=== PATIENT | female | born 1935 | race Caucasian/White ===

== ENCOUNTER 2020-10-01 07:51 | Outpatient (CLI) | payer MEDICARE, SELFPAY ==
--- NOTE | 2020-10-01 07:56 | US_ITS ---
WS: [id number] RIGHT UPPER QUADRANT ULTRASOUND HISTORY: ABNORMAL FINDINGS OF BLOOD CHEMISTRY COMPARISON: 03/20/2013, 03/03/2018 Liver: 16.2 cm in length. Liver is slightly enlarged with coarse echotexture and hepatic steatosis. Gallbladder: Normally distended gallbladder. There is a focal area of minimal gallbladder wall thicke liana which may be a small amount of sludge or polyp. No shadowing or stones. CBD: 0.6 cm Pancreas: Not visualized. Right kidney: 10.3 cm in length. Normal size and echogenicity. No hydronephrosis or mass. Aorta and IVC: ATHEROSCLEROSIS aorta. Normal IVC. No ascites. US/US abdomen limited [id number] IMPRESSION: 1. No cholelithiasis. 2. Focal wall thickening in the posterior gallbladder may be an area of tumefa ctive sludge or polyp. 3. Mild hepatomegaly and hepatic steatosis.
== END 2020-10-01 07:52 | disposition home or self-care (01) ==
LOC: US 07:52
PROVIDERS: PCP Family Medicine; Visit Provider Family Medicine
DX: R79.89 Other specified abnormal findings of blood chemistry (principal); R16.0 Hepatomegaly, not elsewhere classified; K76.0 Fatty (change of) liver, not elsewhere classified
CPT/HCPCS: 76705

== ENCOUNTER 2020-10-27 21:39 | Emergency (ER) | payer MEDICARE, SELFPAY ==
[2020-10-27 21:47] VITALS: BP 154/66; PULSE 106; RESP 14; TEMP 39.3; O2SAT 92; BMI 26.7
--- NOTE | 2020-10-27 21:56 | ECG_ITS ---
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 Measurements Intervals Waucoma Rate: 94 P: 162 KS: 223 QRS: 17 QRSD: 138 T: 269 QT: 368 QTc: 461 Interpretive Statements SINUS RHYTHM WITH FIRST DEGREE AV BLOCK INTRAVENTRICULAR CONDUCTION DELAY [130+ ms QRS DURATION] LEFT VENTRICULAR HYPERTROPHY AND ST-T CHANGE [VOLTAGE CRITERIA PLUS ST/T ABNORMALITY] Compared to ECG 11/08/2016 12:10:06 First degree AV block now present Intraventricular conduction delay now present Left ventricular hypertrophy now present ST (T wave) deviation now present Atrial-paced complex(es) or rhythm no longer present Left bundle-branch block no longer present Electronically Signed On 10-28-2020 21:32:18 ACCOUNTING DIRECTOR by Nayely Gardner M.D. [id number]
--- NOTE | 2020-10-27 21:56 | XRR_ITS ---
PROCEDURE INFORMATION: Exam: XR Chest, 1 View Exam date and time: 10/27/2020 10:00 PM Age: 85 years old Clinical indication: Fever; Prior surgery; Surgery type: Cabg, pacemaker TECHNIQUE: Imaging protocol: XR of the chest Views: 1 view. COMPARISON: CR Chest 2 views* [id number] 11/08/2016 12:24 PM FINDINGS: Tubes, catheters and devices: Permanent pacemaker appears intact. The patient has undergone mitral valve replacement. Lungs: Unremarkable. No consolidation. Pleural space: Unremarkable. No pleural effusion. No pneumothorax. Heart/Mediastinum: The heart is normal for the AP projection. Bones/joints: Unremarkable. XR/XR chest 1V portable [id number] IMPRESSION: No acute cardiopulmonary abnormality.
--- NOTE | 2020-10-27 22:00 | ED_ITS ---
HPI - COVID General: Chief Complaint: COVID symptoms Stated Complaint: fever/sob Time Seen by Provider: 10/27/20 21:56 Source: patient Mode of arrival: ambulatory Limitations: no limitations Triage information: Has fever, cough or shortness of breath . No known COVID + exposure last 14 days History of Present Illness: HPI Narrative: [place] any 5-year-old female states started having some shortness of breath along with a fever and body aches today. She has a fever here of 102. She states she has had no known sick contacts Please she has been is her doctor's office over the last 2 weeks. She denies any vomiting or diarrhea. She has had a slight cough. Denies any dysuria. COVID 19 common symptoms: positive fever(s), non-productive cough, dyspnea and body aches; negative headache(s), throat pain, nausea, vomiting or diarrhea COVID 19 other sytmptoms: negative chest pain COVID Results: SARS-CoV-2 Antigen (Rapid) Negative (Negative) 10/27/20 22:18 10/27/20 Review of Systems Const: Reports: fever(s), chills and body aches Eyes: Denies: blurry vision or eye discomfort ENMT: Denies: throat pain or dental pain Card: Denies: chest pain Resp: Reports: dyspnea and non-productive cough GI: Denies: abdominal pain, nausea, vomiting or diarrhea : Denies: dysuria Musc: Denies: neck pain or back pain Skin/Breast: Denies: rash Neuro: Denies: headache(s) Psych: Denies: depression Deric/Lymph: Denies: easy bruising All/Imm: Denies: urticaria PFSH ED PFSH: Medical History ASHD (arteriosclerotic heart disease) Atrial fibrillation HTN (hypertension) Sick sinus syndrome Warfarin anticoagulation Surgical History H/O tricuspid valve repair History of mitral valve replacement with bioprosthetic valve S/P CABG (coronary artery bypass graft) Status cardiac pacemaker Family History Other Stroke Social History Smoking and tobacco status: former smoker Alcohol intake: never Lives independently: Yes Marital status: / Current occupational status: retired Physical Exam Const: COMMON NORMALS: no acute distress, patient oriented x3 and healthy appearing HENMT: COMMON NORMALS: normocephalic and atraumatic HEAD & SCALP: normocephalic and atraumatic Eye: COMMON NORMALS: Equal, round and reactive pupils present and EOMs intact bilaterally PUPIL: Yes Equal, round and reactive pupils present Neck/C-Spine: COMMON NORMALS: full ROM and supple Chest: COMMONS NORMALS: normal inspection of the chest and normal palpation of entire chest wall Resp: COMMON NORMALS: normal respiratory effort, No retractions, No use of ac cessory muscles and clear to auscultation bilaterally AUSCULTATION: clear to auscultation bilaterally Cardio: COMMON NORMALS: regular rate, regular rhythm and No murmurs present (Cardio) RATE: regular rate RHYTHM: regular rhythm GI: COMMON NORMALS: Normal to inspection, nondistended, normoactive bowel sounds present, Soft to palpation, non-tender and no masses PALPATION: Yes Soft to palpation Extremity: COMMON NORMALS: normal to inspection and full ROM Neuro: COMMON NORMALS: patient oriented x3, moves all extremities and no focal motor deficits Psych: COMMON NORMALS: mental status grossly normal, Normal thought process present and cooperative THOUGHT PROCESS: Normal thought process present Skin: COMMON NORMALS: no rashes or lesions noted and no wounds GENERAL SKIN EXAM: no rashes or lesions noted Course Vital Signs: Vital signs: Vital Signs Temperature 102.8 F H 10/27/20 21:47 Pulse Rate 88 10/27/20 23:35 Respiratory Rate 18 10/27/20 23:35 Blood Pressure 141/59 10/27/20 23:35 Pulse Oximetry 94 10/27/20 23:35 MDM - COVID MDM Narrative: Medical decision making narrative: Ivet presents here with fever. She does have a urinary tract infection. CT chest abdomen pelvis showed no acute abnormalities. Patient's blood work and Covid and flu were negative here. She has had no cough here and pulse ox and vitals of been normal. I spoke to her and she states she would like to go home. We will place her on Keflex for the UTI. She is to follow-up with her PCP and return to the ER if worsening. She understands agrees to plan. Lab Data: Labs: Lab Results 10/27/20 10/27/20 10/27/20 Range/Units 22:18 22:18 22:19 WBC 15.9 H (4.0-10.0) 10^3/ uL RBC 4.71 (4.1-5.3) 10^6/u L Hgb 13.4 (11.5-15.3) g/dL Hct 42.8 (37.0-47.0) % MCV 90.9 (81-99) fL MCH 28.5 (28.0-34.0) pg MCHC 31.3 (30.0-36.0) g/dL RDW 14.6 (12.1-15.1) % Plt Count 275 (130-400) 10^3/c mm MPV 10.7 H (7.4-10.4) fL Neut % (Auto) 86.4 % Lymph % (Auto) 5.5 % [place] % (Auto) 6.6 % Eos % (Auto) 0.6 % Baso % (Auto) 0.3 % Neut # (Auto) 13.73 H (1.8-7.7) 10^3/u L Lymph # (Auto) 0.9 (0.8-4.8) 10^3/u L [place] # (Auto) 1.1 H (0.2-0.9) 10^3/u L Eos # (Auto) 0.1 (0.0-0.8) 10^3/u L Baso # (Auto) 0.1 (0.0-0.1) 10^3/u L Nucleated RBC % (a uto) 0 % Nucleated RBCs # 0.0 /100WBC Fibrinogen (174-498) mg/dL Sodium (136-145) mmol/L Potassium (3.5-5.1) mmol/L Chloride (98-107) mmol/L Carbon Dioxide (22-29) mmol/L Anion Gap (5-19) BUN (8-23) mg/dL Creatinine (0.5-0.9) mg/dL GFR Calculation Glucose (65-115) mg/dL Calculated Osmolal ity (285-295) mOsm/k g Lactic Acid (0.5-2.2) mmol/L Calcium (8.5-10.5) mg/dL Ferritin (15-150) ng/mL Total Bilirubin (0.15-1.2) mg/dL AST (0-32) U/L ALT (0-33) U/L Alkaline Phosphata se (35-105) IU/L C-Reactive Protein (0.0-4.9) mg/L NT-Pro-B Natriuret Pep (0-450) pg/mL Total Protein (6.6-8.7) g/dL Albumin (3.5-5.2) g/dL Globulin (1.3-4.6) g/dL Urine Color (Yellow) Urine Appearance (CLEAR) Urine pH (5-7) Ur Specific Gravit y (1.005-1.030) Urine Protein (Negative) Urine Glucose (UA) (Normal) Urine Ketones (Negative) Urine Blood (Negative) Urine Nitrate (Negative) Urine Bilirubin (Negative) Urine Urobilinogen (Negative) mg/dL Ur Leukocyte Margaret ase (Negative) Urine RBC (0-2) /hpf Urine WBC (0-5) /hpf Ur Squamous Epith Cells (0-5) /hpf Amorphous Sediment Urine Bacteria (NONE) /hpf Urine Mucus /hpf Influenza Type A A g Negative (Negative) Influenza Type B A g Negative (Negative) SARS-CoV-2 Ag (Rap id) Negative (Negative) 10/27/20 10/27/20 10/27/20 Range/Units 22:19 22:19 22:19 WBC (4.0-10.0) 10^3/ uL RBC (4.1-5.3) 10^6/u L Hgb (11.5-15.3) g/dL Hct (37.0-47.0) % MCV (81-99) fL MCH (28.0-34.0) pg MCHC (30.0-36.0) g/dL RDW (12.1-15.1) % Plt Count (130-400) 10^3/c mm MPV (7.4-10.4) fL Neut % (Auto) % Lymph % (Auto) % [place] % (Auto) % Eos % (Auto) % Baso % (Auto) % Neut # (Auto) (1.8-7.7) 10^3/u L Lymph # (Auto) (0.8-4.8) 10^3/u L [place] # (Auto) (0.2-0.9) 10^3/u L Eos # (Auto) (0.0-0.8) 10^3/u L Baso # (Auto) (0.0-0.1) 10^3/u L Nucleated RBC % (a uto) % Nucleated RBCs # /100WBC Fibrinogen 425 (174-498) mg/dL Sodium 136 (136-145) mmol/L Potassium 4.7 (3.5-5.1) mmol/L Chloride 99 (98-107) mmol/L Carbon Dioxide 26 (22-29) mmol/L Anion Gap 15.7 (5-19) BUN 19 (8-23) mg/dL Creatinine 0.8 (0.5-0.9) mg/dL GFR Calculation Not Reportable Glucose 245 H (65-115) mg/dL Calculated Osmolal ity 292 (285-295) mOsm/k g Lactic Acid 2.7 H (0.5-2.2) mmol/L Calcium 9.3 (8.5-10.5) mg/dL Ferritin 53 (15-150) ng/mL Total Bilirubin 0.6 (0.15-1.2) mg/dL AST 71 H (0-32) U/L ALT 56 H (0-33) U/L Alkaline Phosphata se 135 H (35-105) IU/L C-Reactive Protein 4.8 (0.0-4.9) mg/L NT-Pro-B Natriuret Pep 1182 H (0-450) pg/mL Total Protein 6.9 (6.6-8.7) g/dL Albumin 3.9 (3.5-5.2) g/dL Globulin 3.0 (1.3-4.6) g/dL Urine Color (Yellow) Urine Appearance (CLEAR) Urine pH (5-7) Ur Specific Gravit y (1.005-1.030) Urine Protein (Negative) Urine Glucose (UA) (Normal) Urine Ketones (Negative) Urine Blood (Negative) Urine Nitrate (Negative) Urine Bilirubin (Negative) Urine Urobilinogen (Negative) mg/dL Ur Leukocyte Margaret ase (Negative) Urine RBC (0-2) /hpf Urine WBC (0-5) /hpf Ur Squamous Epith Cells (0-5) /hpf Amorphous Sediment Urine Bacteria (NONE) /hpf Urine Mucus /hpf Influenza Type A A g (Negative) Influenza Type B A g (Negative) SARS-CoV-2 Ag (Rap id) (Negative) 10/27/20 Range/Units 23:29 WBC (4.0-10.0) 10^3/ uL RBC (4.1-5.3) 10^6/u L Hgb (11.5-15.3) g/dL Hct (37.0-47.0) % MCV (81-99) fL MCH (28.0-34.0) pg MCHC (30.0-36.0) g/dL RDW (12.1-15.1) % Plt Count (130-400) 10^3/c mm MPV (7.4-10.4) fL Neut % (Auto) % Lymph % (Auto) % [place] % (Auto) % Eos % (Auto) % Baso % (Auto) % Neut # (Auto) (1.8-7.7) 10^3/u L Lymph # (Auto) (0.8-4.8) 10^3/u L [place] # (Auto) (0.2-0.9) 10^3/u L Eos # (Auto) (0.0-0.8) 10^3/u L Baso # (Auto) (0.0-0.1) 10^3/u L Nucleated RBC % (a uto) % Nucleated RBCs # /100WBC Fibrinogen (174-498) mg/dL Sodium (136-145) mmol/L Potassium (3.5-5.1) mmol/L Chloride (98-107) mmol/L Carbon Dioxide (22-29) mmol/L Anion Gap (5-19) BUN (8-23) mg/dL Creatinine (0.5-0.9) mg/dL GFR Calculation Glucose (65-115) mg/dL Calculated Osmolal ity (285-295) mOsm/k g Lactic Acid (0.5-2.2) mmol/L Calcium (8.5-10.5) mg/dL Ferritin (15-150) ng/mL Total Bilirubin (0.15-1.2) mg/dL AST (0-32) U/L ALT (0-33) U/L Alkaline Phosphata se (35-105) IU/L C-Reactive Protein (0.0-4.9) mg/L NT-Pro-B Natriuret Pep (0-450) pg/mL Total Protein (6.6-8.7) g/dL Albumin (3.5-5.2) g/dL Globulin (1.3-4.6) g/dL Urine Color Yellow (Yellow) Urine Appearance Hazy A (CLEAR) Urine pH 5.0 (5-7) Ur Specific Gravit y 1.020 (1.005-1.030) Urine Protein Neg (Negative) Urine Glucose (UA) Norm (Normal) Urine Ketones 1+ H (Negative) Urine Blood 2+ H (Negative) Urine Nitrate Negative (Negative) Urine Bilirubin Neg (Negative) Urine Urobilinogen Norm (Negative) mg/dL Ur Leukocyte Margaret ase Trace H (Negative) Urine RBC 0-4 H (0-2) /hpf Urine WBC 5-10 H (0-5) /hpf Ur Squamous Epith Cells 0-4 H (0-5) /hpf Amorphous Sediment Not Reportable Urine Bacteria 1+ H (NONE) /hpf Urine Mucus 2+ /hpf Influenza Type A A g (Negative) Influenza Type B A g (Negative) SARS-CoV-2 Ag (Rap id) (Negative) Imaging Data: CT Chest: Radiologist's impression: [address] [address] [address] Scan Report Signed Patient: Ivet Caruso Unit #: [id number] : 1935 Age/Sex: 85 / F ADM Date: 10/27/20 Loc: ER Room/Bed: Attending Dr: Ordering Provider/Ordering MD: Jacqueline Shepherd MD Date of Service: 10/27/20 Procedure(s): CT angio chest w abd pel w con Accession Number(s): [id number] Report Number: [id number] PROCEDURE INFORMATION: Exam: CT Angiography Chest With Contrast Exam date and time: 10/27/2020 11:16 PM Age: 85 years old Clinical indication: Fever; Prior surgery; Surgery date: 6+ months; Surgery type: Cabg, valve, pacemaker TECHNIQUE: Imaging protocol: Computed tomographic angiography of the chest with intravenous contrast. 3D rendering (Not supervised by radiologist): MIP and/or 3D reconstructed images were created by the technologist. Radiation optimization: All CT scans at this facility use at least one of these dose optimization techniques: automated exposure control; mA and/or kV adjustment per patient size (includes targeted exams where dose is matched to clinical indication); or iterative reconstruction. Contrast material: VISI; Contrast volume: 95 ml; Contrast route: INTRAVENOUS (IV); COMPARISON: CR XR chest 1V portable [id number] 10/27/2020 9:59 PM RADIATION DOSE METRICS: Total DLP (mGy-cm): 1118.89 FINDINGS: Pulmonary arteries: Normal. No pulmonary emboli. Aorta: Unremarkable. No aortic aneurysm. No aortic dissection. Thyroid: Left thyroid 2.7 cm suspected solid nodule. Lungs: Left lower lobe superior segment atelectasis. Pleural space: Unremarkable. No pneumothorax. No pleural effusion. Heart: Unremarkable. No cardiomegaly. No pericardial effusion. Mediastinal space: Small hiatal hernia Lymph nodes: Several prominent nonspecific mediastinal lymph nodes measuring up to 9 mm. Bones/joints: Sternotomy wires. Soft tissues: Unremarkable. IMPRESSION: 1. Negative for pulmonary embolus or airspace infiltrate. 2. Several prominent nonspecific mediastinal lymph nodes measuring up to 9 mm. 3. Sternotomy wires. 4. Left thyroid 2.7 cm suspected solid nodule. Evaluate with thyroid ultrasound. 5. Left lower lobe superior segment atelectasis. 6. Small hiatal hernia COMMENTS: Consistent with the [employer]'s Incidental Findings Committee white paper (J Am Charity Radiol 2015): In patients aged 35 years and older with an incidental thyroid nodule equal to or greater than 1.[address], MRI or extrathyroidal US, further evaluation with dedicated thyroid US is recommended for patients with normal life expectancy and without comorbidities. For smaller nodules without suspicious features, no further evaluation or follow up is recommended. PROCEDURE INFORMATION: Exam: CT Abdomen And Pelvis With Contrast Exam date and time: 10/27/2020 11:16 PM Age: 85 years old Clinical indication: Fever; Prior surgery; Surgery date: 6+ months; Surgery type: Cabg, valve, pacemaker TECHNIQUE: Imaging protocol: Computed tomography of the abdomen and pelvis with intravenous contrast. Radiation optimization: All CT scans at this facility use at least one of these dose optimization techniques: automated exposure control; mA and/or kV adjustment per patient size (includes targeted exams where dose is matched to clinical indication); or iterative reconstruction. Contrast material: VISI; Contrast volume: 95 ml; Contrast route: INTRAVENOUS (IV); COMPARISON: CR XR chest 1V portable [id number] 10/27/2020 9:59 PM RADIATION DOSE METRICS: Total DLP (mGy-cm): 1118.89 FINDINGS: Liver: Hepatic steatosis. Gallbladder and bile ducts: Minimal cholelithiasis suspected. Pancreas: Normal. No ductal dilation. Spleen: Normal. No splenomegaly. Adrenal glands: Normal. No mass. Kidneys and ureters: Bilateral benign renal cysts, negative for follow-up. Stomach and bowel: Unremarkable. No obstruction. No mucosal thickening. Appendix: No evidence of appendicitis. Intraperitoneal space: Unremarkable. No free air. No significant fluid collection. Vasculature: Unremarkable. No abdominal aortic aneurysm. Lymph nodes: Unremarkable. No enlarged lymph nodes. Urinary bladder: Unremarkable as visualized. Reproductive: 13 mm calcified uterine fibroid. Right ovary appears asymmetrically prominent measuring 4 cm with perhaps an underlying solid lesion, ultrasound could further characterize this non emergently. Bones/joints: Unremarkable. No acute fracture. Soft tissues: Unremarkable. CT/CT angio chest w abd pel w con IMPRESSION: 1. Negative for acute inflammatory process in the abdomen or pelvis. 2. Hepatic steatosis. 3. Bilateral benign renal cysts, negative for follow-up. 4. Minimal cholelithiasis suspected. 5. 13 mm calcified uterine fibroid. 6. Right ovary appears asymmetrically prominent measuring 4 cm with perhaps an underlying solid lesion, ultrasound could further characterize this non emergently. EKG Data: EKG 1: Attestation: I personally reviewed and interpreted this EKG as follows: EKG interpretation date: 10/27/20 EKG interpretation time: 22:12 Interpretation: nsr hr [address] elevation qrs 138 qtc 420 COVID Results: SARS-CoV-2 Antigen (Rapid) Negative (Negative) 10/27/20 22:18 10/27/20 Discharge Plan Discharge Patient Disposition: Home Clinical Impression: Acute cystitis Qualifiers: Hematuria presence: without hematuria Qualified Code(s): N30.00 - Acute cystitis without hematuria Fever Qualifiers: Fever type: unspecified Qualified Code(s): R50.9 - Fever, unspecified Condition: Stable Prescriptions: New Keflex 500 mg capsule 500 mg PO Q6H 7 Days Qty: 28 RF: 0 No Action digoxin 125 mcg (0.125 mg) tablet 125 mcg PO DAILY RF: 0 aspirin [Aspir-81] 81 mg tablet,delayed release (DR/EC) 81 mg PO DAILY RF: 0 metoprolol succinate 25 mg tablet extended release 24 hr 25 mg PO DAILY RF: 0 diltiazem HCl [Cardizem CD] 120 mg capsule,extended release 24hr 120 mg PO DAILY RF: 0 atorvastatin 10 mg tablet 10 mg PO DAILY RF: 0 warfarin 1 mg tablet See Rx Instructions PO DAILY RF: 0 Discharge Orders: Discharge ED (Routine); Ordered 10/28/20 Ordered By: Jacqueline Shepherd Referrals: Oralia Calderon MD [Primary Care Provider] - 1-3 days Discharge Diet: Advance as tolerated Discharge Activity: Resume usual activity Patient Instructions: Urinary Tract Infection in Women (ED), Fever in Adults (ED) Coding Level of Care Code ED Gas Mask Inspector for Chg Fwd Exam Comprehensive
[2020-10-27] MEDS: acetaminophen 325 mg Tablet 650 MG PO (22:25)
[2020-10-27 22:27] VITALS: O2SAT 94
[2020-10-27 22:28] LABS: Basophils # 0.1 10^3/uL (0.0-0.1); Basophils % 0.3 %; Eosinophils # 0.1 10^3/uL (0.0-0.8); Eosinophils % 0.6 %; Hematocrit 42.8 % (37.0-47.0); Hemoglobin 13.4 g/dL (11.5-15.3); Lymphocytes # 0.9 10^3/uL (0.8-4.8); Lymphocytes % 5.5 %; Mean Corpuscular HGB Conc 31.3 g/dL (30.0-36.0); Mean Corpuscular Hemoglobin 28.5 pg (28.0-34.0); Mean Corpuscular Volume 90.9 fL (81-99); Mean Platelet Volume 10.7 fL (7.4-10.4); Monocytes # 1.1 10^3/uL (0.2-0.9); Monocytes % 6.6 %; Neutrophils # 13.73 10^3/uL (1.8-7.7); Neutrophils % 86.4 %; Nucleated Red Blood Cells % 0 %; Platelet Count 275 10^3/cmm (130-400); Red Blood Count 4.71 10^6/uL (4.1-5.3); Red Cell Distribution Width 14.6 % (12.1-15.1); White Blood Count 15.9 10^3/uL (4.0-10.0)
[2020-10-27 22:48] VITALS: BP 130/53; PULSE 86; RESP 19; O2SAT 93
[2020-10-27 22:53] LABS: Lactic Sepsis W/Reflex 2.7 mmol/L (0.5-2.2)
[2020-10-27 22:59] LABS: Influenza A by IFA Negative (Negative); Influenza B by IFA Negative (Negative); SARS Covid-2 Antigen Negative (Negative)
[2020-10-27 23:03] LABS: Alanine Aminotransferase 56 U/L (0-33); Albumin Level 3.9 g/dL (3.5-5.2); Alkaline Phosphatase 135 IU/L (35-105); Aspartate Amino Transferase 71 U/L (0-32); Blood Urea Nitrogen 19 mg/dL (8-23); C Reactive Protein 4.8 mg/L (0.0-4.9); Calcium 9.3 mg/dL (8.5-10.5); Carbon Dioxide 26 mmol/L (22-29); Chloride 99 mmol/L (98-107); Glucose 245 mg/dL (65-115); NT Pro B Type Natriuretic Pept 1182 pg/mL (0-450); Osmolality Calculated 292 mOsm/kg (285-295); Sodium 136 mmol/L (136-145); Total Bilirubin 0.6 mg/dL (0.15-1.2); Total Protein 6.9 g/dL (6.6-8.7)
[2020-10-27 23:08] LABS: Anion Gap 15.7 (5-19); Potassium 4.7 mmol/L (3.5-5.1)
[2020-10-27 23:15] LABS: Ferritin 53 ng/mL (15-150)
--- NOTE | 2020-10-27 23:15 | CTR_ITS ---
PROCEDURE INFORMATION: Exam: CT Angiography Chest With Contrast Exam date and time: 10/27/2020 11:16 PM Age: 85 years old Clinical indication: Fever; Prior surgery; Surgery date: 6+ months; Surgery type: Cabg, valve, pacemaker TECHNIQUE: Imaging protocol: Computed tomographic angiography of the chest with intravenous contrast. 3D rendering (Not supervised by radiologist): MIP and/or 3D reconstructed images were created by the technologist. Radiation optimization: All CT scans at this facility use at least one of these dose optimization techniques: automated exposure control; mA and/or kV adjustment per patient size (includes targeted exams where dose is matched to clinical indication); or iterative reconstruction. Contrast material: VISI; Contrast volume: 95 ml; Contrast route: INTRAVENOUS (IV); COMPARISON: CR XR chest 1V portable [id number] 10/27/2020 9:59 PM RADIATION DOSE METRICS: Total DLP (mGy-cm): 1118.89 FINDINGS: Pulmonary arteries: Normal. No pulmonary emboli. Aorta: Unremarkable. No aortic aneurysm. No aortic dissection. Thyroid: Left thyroid 2.7 cm suspected solid nodule. Lungs: Left lower lobe superior segment atelectasis. Pleural space: Unremarkable. No pneumothorax. No pleural effusion. Heart: Unremarkable. No cardiomegaly. No pericardial effusion. Mediastinal space: Small hiatal hernia Lymph nodes: Several prominent nonspecific mediastinal lymph nodes measuring up to 9 mm. Bones/joints: Sternotomy wires. Soft tissues: Unremarkable. IMPRESSION: 1. Negative for pulmonary embolus or airspace infiltrate. 2. Several prominent nonspecific mediastinal lymph nodes measuring up to 9 mm. 3. Sternotomy wires. 4. Left thyroid 2.7 cm suspected solid nodule. Evaluate with thyroid ultrasound. 5. Left lower lobe superior segment atelectasis. 6. Small hiatal hernia COMMENTS: Consistent with the [place]'s Incidental Findings Committee white paper (J Am Charity Radiol 2015): In patients aged 35 years and older with an incidental thyroid nodule equal to or greater than 1.[address], MRI or extrathyroidal US, further evaluation with dedicated thyroid US is recommended for patients with normal life expectancy and without comorbidities. For smaller nodules without suspicious features, no further evaluation or follow up is recommended. PROCEDURE INFORMATION: Exam: CT Abdomen And Pelvis With Contrast Exam date and time: 10/27/2020 11:16 PM Age: 85 years old Clinical indication: Fever; Prior surgery; Surgery date: 6+ months; Surgery type: Cabg, valve, pacemaker TECHNIQUE: Imaging protocol: Computed tomography of the abdomen and pelvis with intravenous contrast. Radiation optimization: All CT scans at this facility use at least one of these dose optimization techniques: automated exposure control; mA and/or kV adjustment per patient size (includes targeted exams where dose is matched to clinical indication); or iterative reconstruction. Contrast material: VISI; Contrast volume: 95 ml; Contrast route: INTRAVENOUS (IV); COMPARISON: CR XR chest 1V portable [id number] 10/27/2020 9:59 PM RADIATION DOSE METRICS: Total DLP (mGy-cm): 1118.89 FINDINGS: Liver: Hepatic steatosis. Gallbladder and bile ducts: Minimal cholelithiasis suspected. Pancreas: Normal. No ductal dilation. Spleen: Normal. No splenomegaly. Adrenal glands: Normal. No mass. Kidneys and ureters: Bilateral benign renal cysts, negative for follow-up. Stomach and bowel: Unremarkable. No obstruction. No mucosal thickening. Appendix: No evidence of appendicitis. Intraperitoneal space: Unremarkable. No free air. No significant fluid collection. Vasculature: Unremarkable. No abdominal aortic aneurysm. Lymph nodes: Unremarkable. No enlarged lymph nodes. Urinary bladder: Unremarkable as visualized. Reproductive: 13 mm calcified uterine fibroid. Right ovary appears asymmetrically prominent measuring 4 cm with perhaps an underlying solid lesion, ultrasound could further characterize this non emergently. Bones/joints: Unremarkable. No acute fracture. Soft tissues: Unremarkable. CT/CT angio chest w abd pel w con IMPRESSION: 1. Negative for acute inflammatory process in the abdomen or pelvis. 2. Hepatic steatosis. 3. Bilateral benign renal cysts, negative for follow-up. 4. Minimal cholelithiasis suspected. 5. 13 mm calcified uterine fibroid. 6. Right ovary appears asymmetrically prominent measuring 4 cm with perhaps an underlying solid lesion, ultrasound could further characterize this non emergently. COMMENTS: Consistent with the [place] [employer]'s Incidental Findings Committee white paper (J Am Charity Radiol 2018): Any incidental renal lesion less than 1 cm or classified as too small to characterize, or any incidental cystic renal lesion characterized as simple-appearing, is likely benign. No follow-up imaging is recommended for these lesions per consensus recommendations based on imaging criteria. Radiation Dose CTDIVOL = (mGy): DLP = 1118.89~1118.89 (mGy-cm)
[2020-10-27 23:32] LABS: Fibrinogen 425 mg/dL (174-498)
[2020-10-27 23:35] VITALS: BP 141/59; PULSE 88; RESP 18; O2SAT 94
[2020-10-27 23:56] LABS: Urine Appearance Hazy (CLEAR); Urine Color Yellow (Yellow)
[2020-10-27] MEDS: iodixanol 320 mg/mL 100mL Btl IV (23:56)
[2020-10-27 23:57] LABS: Add Urine Microscopic? YES; Bacteria Urine 1+ /hpf; Bilirubin Urine Neg (Negative); Blood Urine 2+ (Negative); Glucose Urine UA Norm (Normal); Ketones Urine 1+ (Negative); Leukocyte Esterase Urine Trace (Negative); Mucus Urine 2+ /hpf; Nitrate Urine Negative (Negative); Protein Urine Neg (Negative); RBC Urine 0-4 /hpf (0-2); Squamous Epithelial Cell Urine 0-4 /hpf (0-5); Urobilinogen Urine Norm (Negative)
[2020-10-27 23:58] LABS: Add Urine Culture? Yes
[2020-10-28] MEDS: cefTRIAXone 1,000 MG in sodium chloride 0.9% (plus) 50 ML 100 MG IV (00:01)
[2020-10-28 00:12] LABS: Reflex Lactate Order REFLEX LACTIC ORDERD
[2020-10-28 01:08] VITALS: BP 151/79; PULSE 80; RESP 23; O2SAT 93
== END 2020-10-28 01:08 | disposition home or self-care (01) ==
PROVIDERS: Emergency Provider Emergency Medicine; PCP Family Medicine
DX: N30.00 Acute cystitis without hematuria (principal); Z79.82 Long term (current) use of aspirin; Z79.01 Long term (current) use of anticoagulants; I48.91 Unspecified atrial fibrillation; I10 Essential (primary) hypertension; Z95.1 Presence of aortocoronary bypass graft; Z95.0 Presence of cardiac pacemaker; Z87.891 Personal history of nicotine dependence
CPT/HCPCS: 12345; 71045; 71275; 74177; 80053; 81001; 82728; 83605; 83880; 85025; 85384; 86140; 87040; 87086; 87426; 87804; 93005; 96365; 99282; 99284; J0696; Q9967

== ENCOUNTER 2021-07-07 21:59 | Inpatient (IN) | payer MEDICARE, SELFPAY ==
--- NOTE | 2021-07-07 22:02 | ECG_ITS ---
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 Measurements Intervals [place] Rate: 99 P: MI: QRS: 35 QRSD: 141 T: 265 QT: 369 QTc: 475 Interpretive Statements ATRIAL FLUTTER/TACHYCARDIA LEFT BUNDLE BRANCH BLOCK [120+ ms QRS DURATION, 80+ ms Q/S IN V1/V2, 85+ ms R IN I/aVL/V5/V6] Compared to ECG 10/27/2020 22:12:54 Left bundle-branch block now present Sinus rhythm no longer present First degree AV block no longer present Intraventricular conduction delay no longer present Left ventricular hypertrophy no longer present ST (T wave) deviation no longer present Electronically Signed On 07-08-2021 23:26:27 CDT by Nayely Gardner M.D. [id number]
[2021-07-07 22:05] VITALS: BP 131/61; PULSE 92; RESP 18; TEMP 36.8; O2SAT 90; BMI 24.9
--- NOTE | 2021-07-07 22:20 | W.ED.NAVMDI ---
HPI - Nausea/Vomiting/Diarrhea General: Chief complaint: Nausea/Vomiting/Diarrhea Stated complaint: UTI, Cant walk Shaking, Nausea Time Seen by Provider: 07/07/21 22:01 Source: patient Mode of arrival: ambulatory Limitations: no limitations History of Present Illness: HPI Narrative: 86-year-old female daughter states she been having recurrent UTIs in the past few months. States intensity UTI she gets confused and starts having shortness of breath. She states that she went to her PCP this morning diagnosed with UTI and started on Macrobid. States that tonight though she started having some confusion along with shortness of breath and unable to walk due to weakness. Patient here is able answer most my questions appropriately does appear quite anxious. Denies any fever. Denies any worsening improving factors. Associated nausea: Yes Associated symtoms: Reports dysuria and nausea; Denies chest pain or headache(s) Review of Systems Const: Denies: fever(s), chills, body aches or change in appetite Eyes: Denies: blurry vision or eye discomfort ENMT: Denies: throat pain or dental pain Card: Denies: chest pain Resp: Reports: dyspnea GI: Reports: nausea and vomiting : Reports: dysuria Musc: Denies: neck pain or back pain Skin/Breast: Denies: rash Neuro: Denies: headache(s) Psych: Denies: depression Deric/Lymph: Denies: easy bruising All/Imm: Denies: urticaria PFSH ED PFSH: Medical History ASHD (arteriosclerotic heart disease) Atrial fibrillation HTN (hypertension) Sick sinus syndrome Warfarin anticoagulation Surgical History H/O tricuspid valve repair History of mitral valve replacement with bioprosthetic valve S/P CABG (coronary artery bypass graft) Status cardiac pacemaker Family History Other Stroke Social History Smoking and tobacco status: never smoked Alcohol intake: never Lives independently: Yes Marital status: / Current occupational status: retired Physical Exam Const: COMMON NORMALS: patient oriented x3 and healthy appearing GENERAL APPEARANCE: in distress HENMT: COMMON NORMALS: normocephalic and atraumatic HEAD & SCALP: normocephalic and atraumatic Eye: COMMON NORMALS: Equal, round and reactive pupils present and EOMs intact bilaterally PUPIL: Yes Equal, round and reactive pupils present Neck/C-Spine: COMMON NORMALS: full ROM and supple Chest: COMMONS NORMALS: normal inspection of the chest and normal palpation of entire chest wall Resp: COMMON NORMALS: normal respiratory effort, No retractions, No use of accessory muscles and clear to auscultation bilaterally AUSCULTATION: clear to auscultation bilaterally Cardio: COMMON NORMALS: regular rate, regular rhythm and No murmurs present (Cardio) RATE: regular rate RHYTHM: regular rhythm GI: COMMON NORMALS: Normal to inspection, nondistended, normoactive bowel sounds present, Soft to palpation, non-tender and no masses PALPATION: Yes Soft to palpation Extremity: COMMON NORMALS: normal to inspection and full ROM Neuro: COMMON NORMALS: patient oriented x3, moves all extremities and no focal motor deficits Psych: COMMON NORMALS: mental status grossly normal, Normal thought process present and cooperative THOUGHT PROCESS: Normal thought process present Skin: COMMON NORMALS: no rashes or lesions noted and no wounds GENERAL SKIN EXAM: no rashes or lesions noted Course Vital Signs: Vital signs: Vital Signs Temperature 98.3 F 07/07/21 22:05 Pulse Rate 80 07/08/21 02:30 Respiratory Rate 21 H 07/08/21 02:30 Blood Pressure 91/45 07/08/21 02:30 Pulse Oximetry 97 07/08/21 02:30 MDM - Nausea/Vomiting/Diarrhea Lab Data: Labs: Lab Results 07/07/21 07/07/21 07/07/21 22:30 22:30 22:30 WBC 20.0 10^3/uL H 10 ^3/uL (4.0-10.0) RBC 4.69 10^6/uL 10^6 /uL (4.1-5.3) Hgb 13.2 g/dL g/dL (11.5-15.3) Hct 41.9 % % (37.0-47.0) MCV 89.3 fl fl (81-99) MCH 28.1 pg pg (28.0-34.0) MCHC 31.5 g/dL g/dL (30.0-36.0) RDW 15.2 % H % (12.1-15.1) Plt Count 322 10^3/cmm 10^3 /cmm (130-400) MPV 10.5 fL H fL (7.4-10.4) Neut % (Auto) 88.8 % % Lymph % (Auto) 7.1 % % [place] % (Auto) 2.9 % % Eos % (Auto) 0.4 % % Baso % (Auto) 0.2 % % Neut # (Auto) 17.75 10^3/uL H 1 0^3/uL (1.8-7.7) Lymph # (Auto) 1.4 10^3/uL 10^3/ uL (0.8-4.8) [place] # (Auto) 0.6 10^3/uL 10^3/ uL (0.2-0.9) Eos # (Auto) 0.1 10^3/uL 10^3/ uL (0.0-0.8) Baso # (Auto) 0.0 10^3/uL 10^3/ uL (0.0-0.1) Nucleated RBC % (a uto) 0 % % Nucleated RBCs # 0.0 /100WBC /100W BC PT INR D-Dimer <= 0.27 ug/mIFEU ug/mIFEU (0-0.59) Specimen Type Sample Site ABG pH ABG pCO2 ABG pO2 ABG HCO3 ABG Base Excess Mayo Test Hematocrit O2 Delivery Device O2 Liters/Min FiO2 Infantry Indirect [employer] Crewmember ID Sodium 136 mmol/L mmol/L (136-145) Potassium 4.6 mmol/L mmol/L (3.5-5.1) Chloride 101 mmol/L mmol/L (98-107) Carbon Dioxide 24 mmol/L mmol/L (22-29) Anion Gap 15.6 (5-19) BUN 20 mg/dL mg/dL (8-23) Creatinine 0.7 mg/dL mg/dL (0.5-0.9) GFR Calculation Not Reportable Glucose 180 mg/dL H mg/dL (65-115) Calculated Osmolal ity 289 mOsm/kg mOsm/ kg (285-295) Lactate Calcium 9.3 mg/dL mg/dL (8.5-10.5) Total Bilirubin 0.5 mg/dL mg/dL (0.15-1.2) AST 53 U/L H U/L (0-32) ALT 36 U/L H U/L (0-33) Alkaline Phosphata se 157 IU/L H IU/L (35-105) Troponin T Baselin e Troponin T 120 Min [place] Troponin T NT-Pro-B Natriuret Pep 2238 pg/mL H pg/m L (0-450) Total Protein 7.0 g/dL g/dL (6.6-8.7) Albumin 3.9 g/dL g/dL (3.5-5.2) Globulin 3.1 g/dL g/dL (1.3-4.6) Urine Color Urine Appearance Urine pH Ur Specific Gravit y Urine Protein Urine Glucose (UA) Urine Ketones Urine Blood Urine Nitrate Urine Bilirubin Urine Urobilinogen Ur Leukocyte Margaret ase Urine RBC Urine WBC Ur Squamous Epith Cells Amorphous Sediment Urine Bacteria Urine Mucus Digoxin 0.3 ng/mL L ng/mL (0.6-1.2) SARS-CoV-2 Ag (Rap id) 07/07/21 07/07/21 07/07/21 22:30 22:30 22:30 WBC RBC Hgb Hct MCV MCH MCHC RDW Plt Count MPV Neut % (Auto) Lymph % (Auto) [place] % (Auto) Eos % (Auto) Baso % (Auto) Neut # (Auto) Lymph # (Auto) [place] # (Auto) Eos # (Auto) Baso # (Auto) Nucleated RBC % (a uto) Nucleated RBCs # PT INR D-Dimer Specimen Type Sample Site ABG pH ABG pCO2 ABG pO2 ABG HCO3 ABG Base Excess Mayo Test Hematocrit O2 Delivery Device O2 Liters/Min FiO2 [employer] Crewmember ID Sodium Potassium Chloride Carbon Dioxide Anion Gap BUN Creatinine GFR Calculation Glucose Calculated Osmolal ity Lactate 2.6 mmol/L H mmol /L (0.5-2.2) Calcium Total Bilirubin AST ALT Alkaline Phosphata se Troponin T Baselin e 11 ng/L H ng/L (0-10) Troponin T 120 Min [place] Troponin T NT-Pro-B Natriuret Pep Total Protein Albumin Globulin Urine Color Urine Appearance Urine pH Ur Specific Gravit y Urine Protein Urine Glucose (UA) Urine Ketones Urine Blood Urine Nitrate Urine Bilirubin Urine Urobilinogen Ur Leukocyte Margaret ase Urine RBC Urine WBC Ur Squamous Epith Cells Amorphous Sediment Urine Bacteria Urine Mucus Digoxin SARS-CoV-2 Ag (Rap id) Negative (Negative) 07/07/21 07/07/21 07/08/21 22:30 22:30 00:35 WBC RBC Hgb Hct MCV MCH MCHC RDW Plt Count MPV Neut % (Auto) Lymph % (Auto) [place] % (Auto) Eos % (Auto) Baso % (Auto) Neut # (Auto) Lymph # (Auto) [place] # (Auto) Eos # (Auto) Baso # (Auto) Nucleated RBC % (a uto) Nucleated RBCs # PT 22.60 SECONDS H S ECONDS (12.1-14.9) INR 1.95 H (0.8-1.2) D-Dimer Specimen Type Sample Site ABG pH ABG pCO2 ABG pO2 ABG HCO3 ABG Base Excess Mayo Test Hematocrit O2 Delivery Device O2 Liters/Min FiO2 [employer] Crewmember ID Sodium Potassium Chloride Carbon Dioxide Anion Gap BUN Creatinine GFR Calculation Glucose Calculated Osmolal ity Lactate Calcium Total Bilirubin AST ALT Alkaline Phosphata se Troponin T Baselin e Troponin T 120 Min [place] 13.77 ng/L H ng/L (0-10) [place] Troponin T 2.77 ABS# ABS# (0-10) NT-Pro-B Natriuret Pep Total Protein Albumin Globulin Urine Color Yellow (Yellow) Urine Appearance Clear (CLEAR) Urine pH 5 (5-7) Ur Specific Gravit y 1.005 (1.005-1.030) Urine Protein Trace (Negative) Urine Glucose (UA) Norm (Normal) Urine Ketones Negative (Negative) Urine Blood Neg (Negative) Urine Nitrate Negative (Negative) Urine Bilirubin Neg (Negative) Urine Urobilinogen Norm mg/dL mg/dL (Negative) Ur Leukocyte Margaret ase Negative (Negative) Urine RBC 0-4 /hpf H /hpf (0-2) Urine WBC 5-10 /hpf H /hpf (0-5) Ur Squamous Epith Cells 0-4 /hpf H /hpf (0-5) Amorphous Sediment Not Reportable Urine Bacteria Trace /hpf /hpf (NONE) Urine Mucus 1+ /hpf /hpf Digoxin SARS-CoV-2 Ag (Rap id) 07/08/21 07/08/21 00:39 02:40 WBC RBC Hgb Hct MCV MCH MCHC RDW Plt Count MPV Neut % (Auto) Lymph % (Auto) [place] % (Auto) Eos % (Auto) Baso % (Auto) Neut # (Auto) Lymph # (Auto) [place] # (Auto) Eos # (Auto) Baso # (Auto) Nucleated RBC % (a uto) Nucleated RBCs # PT INR D-Dimer Specimen Type Arterial Arterial Sample Site Radial, right Brachial, right ABG pH 7.30 L 7.35 (7.35-7.45) (7.35-7.45) ABG pCO2 49.7 mmHg H mmHg 42.4 mmHg mmHg (35-45) (35-45) ABG pO2 62.3 mmHg L mmHg 116.0 mmHg H mmHg (80.0-100.0) (80.0-100.0) ABG HCO3 24.2 mmol/L mmol/ L 23.4 mmol/L mmol/ L (22-26) (22-26) ABG Base Excess -2.8 mmol/L L mmo l/L -2.2 mmol/L L mmo l/L (-2.0-2.0) (-2.0-2.0) Mayo Test Pos N/a Hematocrit 39.6 % % 37.1 % % (37-47) (37-47) O2 Delivery Device Nc Bipap O2 Liters/Min 4.0 % % FiO2 45.0 % % [employer] Indirect [employer] Crewmember ID Harkr Harkr Sodium Potassium Chloride Carbon Dioxide Anion Gap BUN Creatinine GFR Calculation Glucose Calculated Osmolal ity Lactate Calcium Total Bilirubin AST ALT Alkaline Phosphata se Troponin T Baselin e Troponin T 120 Min [place] Troponin T NT-Pro-B Natriuret Pep Total Protein Albumin Globulin Urine Color Urine Appearance Urine pH Ur Specific Gravit y Urine Protein Urine Glucose (UA) Urine Ketones Urine Blood Urine Nitrate Urine Bilirubin Urine Urobilinogen Ur Leukocyte Margaret ase Urine RBC Urine WBC Ur Squamous Epith Cells Amorphous Sediment Urine Bacteria Urine Mucus Digoxin SARS-CoV-2 Ag (Rap id) Imaging Data^: CT Chest: Attestation: I personally reviewed and interpreted this imaging study as follows: Radiologist's impression: [address] [address] [address] Scan Report Signed Patient: Ivet Caruso Unit #: [id number] : 1935 Age/Sex: 86 / F ADM Date: 07/07/21 Loc: ER Room/Bed: Attending Dr: Ordering Provider/Ordering MD: Jacqueline Shepherd MD Date of Service: 07/07/21 Procedure(s): CT angio chest w abd pel w con Accession Number(s): [id number] Report Number: [id number] PROCEDURE INFORMATION: Exam: CTA Chest With Contrast Exam date and time: 07/07/2021 11:37 PM Age: 86 years old Clinical indication: Shortness of breath; Prior surgery; Surgery type: Open heart. Pacemaker. ; Patient HX: SOB with hypoxia. Elevated wbc of 20k. TECHNIQUE: Imaging protocol: Computed tomographic angiography of the chest with contrast. 3D rendering (Not supervised by radiologist): MIP and/or 3D reconstructed images were created by the technologist. Radiation optimization: All CT scans at this facility use at least one of these dose optimization techniques: automated exposure control; mA and/or kV adjustment per patient size (includes targeted exams where dose is matched to clinical indication); or iterative reconstruction. Contrast material: OMNI 350; Contrast volume: 95 ml; Contrast route: INTRAVENOUS (IV); COMPARISON: CT angio chest w abd pel w con 10/27/2020 11:42 PM RADIATION DOSE METRICS: Total DLP (mGy-cm): 1063.53 FINDINGS: Pulmonary arteries: Normal. No pulmonary emboli. Aorta: Unremarkable. No aortic aneurysm. No aortic dissection. Lungs: Unremarkable. No consolidation. No masses. Pleural spaces: Small bilateral pleural effusions. Heart: Unremarkable. No cardiomegaly. No pericardial effusion. Mediastinal space: Small hiatal hernia. Lymph nodes: Several prominent mediastinal lymph nodes measuring up to 12 mm short axis, nonspecific. Bones/joints: Sternotomy wires. Soft tissues: Unremarkable. Other findings: Pulmonary vascular congestion. IMPRESSION: 1. Negative for pulmonary embolus. 2. Sternotomy wires. 3. Several prominent mediastinal lymph nodes measuring up to 12 mm short axis, nonspecific. 4. Small bilateral pleural effusions. 5. Small hiatal hernia. 6. Pulmonary vascular congestion. PROCEDURE INFORMATION: Exam: CT Abdomen And Pelvis With Contrast Exam date and time: 07/07/2021 11:37 PM Age: 86 years old Clinical indication: Shortness of breath; Prior surgery; Surgery type: Open heart. Pacemaker. ; Patient HX: SOB with hypoxia. Elevated wbc of 20k. TECHNIQUE: Imaging protocol: Computed tomography of the abdomen and pelvis with contrast. Radiation optimization: All CT scans at this facility use at least one of these dose optimization techniques: automated exposure control; mA and/or kV adjustment per patient size (includes targeted exams where dose is matched to clinical indication); or iterative reconstruction. Contrast material: OMNI 350; Contrast volume: 95 ml; Contrast route: INTRAVENOUS (IV); COMPARISON: CT angio chest w abd pel w con 10/27/2020 11:42 PM RADIATION DOSE METRICS: Total DLP (mGy-cm): 1063.53 FINDINGS: Mediastinal space: Small hiatal hernia. Liver: Hepatic steatosis. Cirrhotic liver suspected. Gallbladder and bile ducts: Normal. No calcified stones. No ductal dilation. Pancreas: Normal. No ductal dilation. Spleen: Normal. No splenomegaly. Adrenal glands: Normal. No mass. Kidneys and ureters: Right kidney cyst, negative for follow-up advised. Stomach and bowel: Mild constipation. Appendix: No evidence of appendicitis. Intraperitoneal space: Unremarkable. No free air. No significant fluid collection. Vasculature: Unremarkable. No abdominal aortic aneurysm. Lymph nodes: Unremarkable. No enlarged lymph nodes. Urinary bladder: Unremarkable as visualized. Reproductive: Unremarkable as visualized. Bones/joints: Unremarkable. No acute fracture. Soft tissues: Unremarkable. CT/CT angio chest w abd pel w con IMPRESSION: 1. Negative for focal acute inflammatory process in the abdomen or pelvis. 2. Hepatic steatosis. 3. Mild constipation. 4. Right kidney cyst, negative for follow-up advised. 5. Cirrhotic liver suspected. 6. Small hiatal hernia. Radiation Dose CTDIVOL = (mGy): DLP = 1063.53 1063.53 (mGy-cm) Dictated By: Rocky Valdez MD EKG Data^: EKG 1: Attestation: I personally reviewed and interpreted this EKG as follows: EKG interpretation date: 07/07/21 EKG interpretation time: 22:53 Interpretation: atrial flutter hr [address] elevation lbbb qrs 141 qtc 425 Discharge Plan Discharge Prescriptions: No Action digoxin 125 mcg (0.125 mg) tablet 125 mcg PO DAILY RF: 0 aspirin [Aspir-81] 81 mg tablet,delayed release (DR/EC) 81 mg PO DAILY RF: 0 diltiazem HCl [Cardizem CD] 120 mg capsule,extended release 24hr 120 mg PO DAILY RF: 0 atorvastatin 10 mg tablet 10 mg PO DAILY RF: 0 warfarin 1 mg tablet See Rx Instructions PO DAILY RF: 0 metoprolol succinate 50 mg tablet extended release 24 hr 75 mg PO DAILY Qty: 135 RF: 1 Coding Level of Care Code ED Wig Sales Consultant for Killian Fwd Exam Comprehensive
[2021-07-07 22:42] VITALS: BP 151/80; PULSE 99; RESP 35; O2SAT 91
--- NOTE | 2021-07-07 22:42 | CTR_ITS ---
PROCEDURE INFORMATION: Exam: CT Head Without Contrast Exam date and time: 07/07/2021 10:42 PM Age: 86 years old Clinical indication: Altered mental status/memory loss; Confusion or disorientation; Patient HX: AMS. Increasing confusion. Recently diagnosed with UTI. TECHNIQUE: Imaging protocol: Computed tomography of the head without contrast. Radiation optimization: All CT scans at this facility use at least one of these dose optimization techniques: automated exposure control; mA and/or kV adjustment per patient size (includes targeted exams where dose is matched to clinical indication); or iterative reconstruction. COMPARISON: CT head wo con* [id number] 07/25/2017 1:55 PM RADIATION DOSE METRICS: Total DLP (mGy-cm): 2089.26 FINDINGS: Brain: Mild parenchymal volume loss noted. There is decreased attenuation of the periventricular white matter, consistent with mild chronic microangiopathic white matter disease. 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 No parenchymal edema identified. No intracranial hemorrhage noted. Cerebral ventricles: No ventriculomegaly. Paranasal sinuses: Visualized sinuses are unremarkable. No fluid levels. Mastoid air cells: Unremarkable as visualized. No mastoid effusion. Bones/joints: Unremarkable. No acute fracture. Soft tissues: Unremarkable. CT/CT head wo con* [id number] IMPRESSION: 1. No acute intracranial abnormality demonstrated. 2. There is no interval change from the prior examination. Radiation Dose CTDIVOL = (mGy): DLP = 2089.26 (mGy-cm)
[2021-07-07 22:46] LABS: Basophils % 0.2 %; Eosinophils # 0.1 10^3/uL (0.0-0.8); Eosinophils % 0.4 %; Hematocrit 41.9 % (37.0-47.0); Hemoglobin 13.2 g/dL (11.5-15.3); Lymphocytes # 1.4 10^3/uL (0.8-4.8); Lymphocytes % 7.1 %; Mean Corpuscular HGB Conc 31.5 g/dL (30.0-36.0); Mean Corpuscular Hemoglobin 28.1 pg (28.0-34.0); Mean Corpuscular Volume 89.3 fl (81-99); Mean Platelet Volume 10.5 fL (7.4-10.4); Monocytes # 0.6 10^3/uL (0.2-0.9); Monocytes % 2.9 %; Neutrophils # 17.75 10^3/uL (1.8-7.7); Neutrophils % 88.8 %; Nucleated Red Blood Cells % 0 %; Platelet Count 322 10^3/cmm (130-400); Red Blood Count 4.69 10^6/uL (4.1-5.3); Red Cell Distribution Width 15.2 % (12.1-15.1)
[2021-07-07 22:55] LABS: Add Urine Culture? No; Add Urine Microscopic? YES; Bacteria Urine TRACE /hpf; Bilirubin Urine Neg (Negative); Blood Urine Neg (Negative); Glucose Urine UA Norm (Normal); Ketones Urine Negative (Negative); Leukocyte Esterase Urine Negative (Negative); Mucus Urine 1+ /hpf; Nitrate Urine Negative (Negative); Protein Urine Trace (Negative); RBC Urine 0-4 /hpf (0-2); Specific Gravity, Urine 1.005 (1.005-1.030); Squamous Epithelial Cell Urine 0-4 /hpf (0-5); Urine Appearance Clear (CLEAR); Urine Color Yellow (Yellow); Urobilinogen Urine Norm (Negative); pH Urine 5 (5-7)
[2021-07-07 23:00] LABS: D Dimer <= 0.27 ug/mIFEU (0-0.59)
[2021-07-07 23:04] LABS: INR 1.95 (0.8-1.2)
[2021-07-07 23:10] LABS: SARS Covid-2 Antigen Negative (Negative)
[2021-07-07] MEDS: ondansetron 2 mg/ML SDV 2 mL 4 MG IVP (23:10)
[2021-07-07] MEDS: sodium chloride 0.9% 1,000 ML 999 ML IV (23:10)
--- NOTE | 2021-07-07 23:12 | XRR_ITS ---
PROCEDURE INFORMATION: Exam: XR Chest Exam date and time: 07/07/2021 11:12 PM Age: 86 years old Clinical indication: Shortness of breath; Prior surgery; Surgery type: Open heart, pacemaker; Additional info: SOB TECHNIQUE: Imaging protocol: XR of the chest. Views: 1 view. COMPARISON: CR XR chest 1V portable [id number] 10/27/2020 9:59 PM FINDINGS: Tubes, catheters and devices: There is a permanent pacemaker present. Lungs: The lungs are hyperinflated, consistent with COPD. Mild diffuse increased interstitial lung markings, likely chronic. No consolidative pulmonary infiltrate noted. Pleural spaces: No pleural effusion. No pneumothorax. Heart/Mediastinum: Prosthetic heart valve noted. No cardiomegaly demonstrated. Vasculature: The thoracic aorta is mildly atherosclerotic. Bones/joints: Median sternotomy noted. Degenerative spine changes. Old healed proximal right humeral fracture. XR/XR chest 1V portable [id number] IMPRESSION: 1. The lungs are hyperinflated, consistent with COPD. 2. Mild diffuse increased interstitial lung markings, likely chronic. No consolidative pulmonary infiltrate noted. 3. There is no interval change from the prior examination.
[2021-07-07 23:15] LABS: Lactate (Lactic Acid level) 2.6 mmol/L (0.5-2.2)
[2021-07-07 23:17] LABS: Troponin(5th) Baseline 11 ng/L (0-10)
[2021-07-07 23:26] LABS: Alanine Aminotransferase 36 U/L (0-33); Albumin Level 3.9 g/dL (3.5-5.2); Alkaline Phosphatase 157 IU/L (35-105); Anion Gap 15.6 (5-19); Aspartate Amino Transferase 53 U/L (0-32); Blood Urea Nitrogen 20 mg/dL (8-23); Calcium 9.3 mg/dL (8.5-10.5); Carbon Dioxide 24 mmol/L (22-29); Chloride 101 mmol/L (98-107); Creatinine Clr Calc Pharmacy 48.8631; Digoxin 0.3 ng/mL (0.6-1.2); Globulin 3.1 g/dL (1.3-4.6); Glucose 180 mg/dL (65-115); Osmolality Calculated 289 mOsm/kg (285-295); Potassium 4.6 mmol/L (3.5-5.1); Sodium 136 mmol/L (136-145); Total Bilirubin 0.5 mg/dL (0.15-1.2)
[2021-07-07 23:28] LABS: NT Pro B Type Natriuretic Pept 2238 pg/mL (0-450)
--- NOTE | 2021-07-07 23:37 | CTR_ITS ---
PROCEDURE INFORMATION: Exam: CTA Chest With Contrast Exam date and time: 07/07/2021 11:37 PM Age: 86 years old Clinical indication: Shortness of breath; Prior surgery; Surgery type: Open heart. Pacemaker. ; Patient HX: SOB with hypoxia. Elevated wbc of 20k. TECHNIQUE: Imaging protocol: Computed tomographic angiography of the chest with contrast. 3D rendering (Not supervised by radiologist): MIP and/or 3D reconstructed images were created by the technologist. Radiation optimization: All CT scans at this facility use at least one of these dose optimization techniques: automated exposure control; mA and/or kV adjustment per patient size (includes targeted exams where dose is matched to clinical indication); or iterative reconstruction. Contrast material: OMNI 350; Contrast volume: 95 ml; Contrast route: INTRAVENOUS (IV); COMPARISON: CT angio chest w abd pel w con 10/27/2020 11:42 PM RADIATION DOSE METRICS: Total DLP (mGy-cm): 1063.53 FINDINGS: Pulmonary arteries: Normal. No pulmonary emboli. Aorta: Unremarkable. No aortic aneurysm. No aortic dissection. Lungs: Unremarkable. No consolidation. No masses. Pleural spaces: Small bilateral pleural effusions. Heart: Unremarkable. No cardiomegaly. No pericardial effusion. Mediastinal space: Small hiatal hernia. Lymph nodes: Several prominent mediastinal lymph nodes measuring up to 12 mm short axis, nonspecific. Bones/joints: Sternotomy wires. Soft tissues: Unremarkable. Other findings: Pulmonary vascular congestion. IMPRESSION: 1. Negative for pulmonary embolus. 2. Sternotomy wires. 3. Several prominent mediastinal lymph nodes measuring up to 12 mm short axis, nonspecific. 4. Small bilateral pleural effusions. 5. Small hiatal hernia. 6. Pulmonary vascular congestion. PROCEDURE INFORMATION: Exam: CT Abdomen And Pelvis With Contrast Exam date and time: 07/07/2021 11:37 PM Age: 86 years old Clinical indication: Shortness of breath; Prior surgery; Surgery type: Open heart. Pacemaker. ; Patient HX: SOB with hypoxia. Elevated wbc of 20k. TECHNIQUE: Imaging protocol: Computed tomography of the abdomen and pelvis with contrast. Radiation optimization: All CT scans at this facility use at least one of these dose optimization techniques: automated exposure control; mA and/or kV adjustment per patient size (includes targeted exams where dose is matched to clinical indication); or iterative reconstruction. Contrast material: OMNI 350; Contrast volume: 95 ml; Contrast route: INTRAVENOUS (IV); COMPARISON: CT angio chest w abd pel w con 10/27/2020 11:42 PM RADIATION DOSE METRICS: Total DLP (mGy-cm): 1063.53 FINDINGS: Mediastinal space: Small hiatal hernia. Liver: Hepatic steatosis. Cirrhotic liver suspected. Gallbladder and bile ducts: Normal. No calcified stones. No ductal dilation. Pancreas: Normal. No ductal dilation. Spleen: Normal. No splenomegaly. Adrenal glands: Normal. No mass. Kidneys and ureters: Right kidney cyst, negative for follow-up advised. Stomach and bowel: Mild constipation. Appendix: No evidence of appendicitis. Intraperitoneal space: Unremarkable. No free air. No significant fluid collection. Vasculature: Unremarkable. No abdominal aortic aneurysm. Lymph nodes: Unremarkable. No enlarged lymph nodes. Urinary bladder: Unremarkable as visualized. Reproductive: Unremarkable as visualized. Bones/joints: Unremarkable. No acute fracture. Soft tissues: Unremarkable. CT/CT angio chest w abd pel w con IMPRESSION: 1. Negative for focal acute inflammatory process in the abdomen or pelvis. 2. Hepatic steatosis. 3. Mild constipation. 4. Right kidney cyst, negative for follow-up advised. 5. Cirrhotic liver suspected. 6. Small hiatal hernia. Radiation Dose CTDIVOL = (mGy): DLP = 1063.53~1063.53 (mGy-cm)
[2021-07-07] MEDS: iohexol 350 mg/mL 100 mL Btl IV (23:54)
[2021-07-08] VITALS (26 sets, daily range): BP systolic 85–126; BP diastolic 44–82; PULSE 76–101; RESP 16–28; TEMP 36.5–37.3; O2SAT 89–99
--- NOTE | 2021-07-08 00:17 | ECG_ITS ---
[facility] Test Date: 2021-07-08 Pat Name: Ivet Caruso Department: Room: Gender: Female Operator: : 1935 Requested By: Jacqueline Shepherd Order Number: [id number] Omid MD: Nayely Gardner M.D. Measurements Intervals [place] Rate: 80 P: PA: QRS: -74 QRSD: 158 T: 72 QT: 445 QTc: 514 Interpretive Statements ELECTRONIC VENTRICULAR PACEMAKER ABNORMAL RHYTHM ECG Compared to ECG 07/07/2021 22:53:24 Atrial flutter no longer present Left bundle-branch block no longer present Electronically Signed On 07-08-2021 23:48:04 CDT by Nayely Gardner M.D. [id number]
[2021-07-08] MEDS: ipratropium-albuterol 3 mL Neb INHALATION ×2 (00:31→20:26)
[2021-07-08 00:49] LABS: ABG PCO2 49.7 mmHg (35-45); Arterial Blood Gas Hematocrit 39.6 % (37-47); Base Excess ABG -2.8 mmol/L (-2.0-2.0); Blood Gas Allen Test Pos; Blood Gas Operator Identificat HARKR; Blood Gas Sample Site Radial, right; Blood Gas Sample Type Arterial; HCO3 ABG 24.2 mmol/L (22-26); Oxygen Device NC; PO2 ABG 62.3 mmHg (80.0-100.0)
[2021-07-08 01:02] LABS: Troponin 5 2HR 13.77 ng/L (0-10); Troponin 5 2HR Delta 2.77 ABS# (0-10)
[2021-07-08] MEDS: cefTRIAXone 1,000 MG in sodium chloride 0.9% (plus) 50 ML 100 MG IV ×2 (01:06→08:40)
[2021-07-08] MEDS: azithromycin 500 MG in sodium chloride 0.9% 250 ML 250 MG IV (01:30)
[2021-07-08 02:54] LABS: ABG PCO2 42.4 mmHg (35-45); ABG PH Result 7.35 (7.35-7.45); Arterial Blood Gas Hematocrit 37.1 % (37-47); Base Excess ABG -2.2 mmol/L (-2.0-2.0); Blood Gas Operator Identificat HARKR; Blood Gas Sample Site Brachial, right; Blood Gas Sample Type Arterial; HCO3 ABG 23.4 mmol/L (22-26); Oxygen Device BIPAP
[2021-07-08] MEDS: sodium chloride 0.9% 500 ML 999 ML IV (02:59)
--- NOTE | 2021-07-08 04:17 | ECG_ITS ---
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 Measurements Intervals [place] Rate: 80 P: 56 NV: 220 QRS: 44 QRSD: 133 T: -87 QT: 451 QTc: 521 Interpretive Statements UNCERTAIN IRREGULAR RHYTHM ELECTRONIC VENTRICULAR PACEMAKER -- CONTOUR ANALYSIS BASED ON INTRINSIC RHYTHM INTRAVENTRICULAR CONDUCTION DELAY [130+ ms QRS DURATION] LEFT VENTRICULAR HYPERTROPHY AND ST-T CHANGE [VOLTAGE CRITERIA PLUS ST/T ABNORMALITY] Compared to ECG 07/08/2021 03:39:02 Intraventricular conduction delay now present Left ventricular hypertrophy now present ST (T wave) deviation now present Electronically Signed On 07-08-2021 23:48:44 CDT by Nayely Gardner M.D. [id number]
[2021-07-08 05:21] LABS: Troponin 5 6HR 19.99 ng/L (0-10); Troponin 5 6HR Delta 8.99 ng/L (0-12)
--- NOTE | 2021-07-08 06:15 | P.HP_ITS ---
Providers/Chief Complaint Admitting Physician: Jane Palacios MD Chief Complaint: UTI, Cant walk Shaking, Nausea History of Present Illness Ivet Caruso is a 86 year old female with past medical history of coronary artery disease and valvular heart disease. She had bypass surgery, mitral valve replacement with bioprosthetic valve, tricuspid valve repair and maze procedure for atrial fibrillation performed at [facility] in 2019. She is anticoagulated with Coumadin. She has a pacemaker in place. Presents today after being diagnosed with UTI by her PCP yesterday morning and being started on MAcrobid. Today noted to be increasingly short of breath and sotero tto ER. ABG with hypoxic hypercapneic respiratory failure, improved on Bipap, resp distress also noted to be improving. States she has had progressive dyspnea over the past 3-4 months, appears to be worsened during episodes of UTI. Daughter mentions patient being confused additionally however currently alert awake and oriented. EKG with paced rhythm, mildly elevated troponin with delta 9. Elevated BNP 2200. B/L pleural effusions noted. Vaccinated for COVID 04 Nov 2020 Review of Systems General: Reports: 10 or more systems reviewed and unremarkable except in HPI and below Const: Denies: fever(s), chills or body aches Eyes: Denies: change in vision, blurry vision or photophobia ENMT: Reports: hoarseness; Denies: throat pain, enlarged tonsils, odynophagia or nasal congestion Card: Denies: chest pain, palpitations, irregular heart rhythm, edema, swelling of feet/ankles, lightheadedness, pre-syncope, dyspnea on exertion or orthopnea Resp: Denies: dyspnea, productive cough, non-productive cough, wheezing, stridor, pain on inspiration, change in phlegm color, hemoptysis or chest congestion GI: Denies: abdominal pain, nausea, vomiting, hematemesis, coffee ground emesis, dysphagia, heartburn, diarrhea, constipation, GI cramping, change in stool character, hematochezia or melena : Denies: flank pain, difficulty voiding, dysuria, urinary frequency, urinary urgency, urinary hesitancy or hematuria Musc: Denies: neck pain, back pain, extremity pain, joint swelling, joint warmth or deformity Neuro: Denies: headache(s), numbness in extremities, weakness in extremities, sensory changes, difficulty walking, frequent falls, dizziness, vertigo, behavioral changes, Slurred speech present or seizure-like activity Psych: Denies: anxiety, depression, suicidal ideation or homicidal ideation Endo: Denies: polyuria, polydipsia, tired all the time, cold intolerance or hot flashes Deric/Lymph: Denies: easy bruising or easy bleeding Medications/Allergies Home Medications Medication Instructions Recorded Confirmed Last Taken Type aspirin 81 mg tablet,delayed 81 mg PO DAILY 01/28/20 04/22/21 Unknown History release atorvastatin 10 mg tablet 10 mg PO DAILY 01/28/20 04/22/21 Unknown History digoxin 125 mcg (0.125 mg) tablet 125 mcg PO DAILY 01/28/20 04/22/21 Unknown History diltiazem HCl 120 mg 120 mg PO DAILY 01/28/20 04/22/21 Unknown History capsule,extended release 24 hr warfarin 1 mg tablet See Rx Instructions PO DAILY 01/28/20 04/22/21 Unknown History metoprolol succinate 50 mg 75 mg PO DAILY #135 tab 04/01/21 04/22/21 Unknown Rx tablet,extended release 24 hr Allergies Allergy/AdvReac Type Severity Reaction Status Date / Time amiodarone Allergy Severe Unknown Verified 04/22/21 10:35 codeine Allergy Severe Unknown Verified 04/22/21 10:35 indomethacin [From Indocin] Allergy Severe Unknown Verified 04/22/21 10:35 PFSH Acute PFSH: Medical History ASHD (arteriosclerotic heart disease) Atrial fibrillation HTN (hypertension) Sick sinus syndrome Warfarin anticoagulation Surgical History H/O tricuspid valve repair History of mitral valve replacement with bioprosthetic valve S/P CABG (coronary artery bypass graft) Status cardiac pacemaker Family History Other Stroke Social History Smoking and tobacco status: never smoked Alcohol intake: never Lives independently: Yes Marital status: / Current occupational status: retired Vitals/I&O/Wt Last Vital Signs Temp 98.2 F 07/08/21 05:30 Pulse 82 07/08/21 06:07 Resp 17 07/08/21 05:30 BP 105/58 07/08/21 05:30 Pulse Ox 98 07/08/21 06:07 07/07/21 07/07/21 07/08/21 14:59 22:59 06:59 Intake Total 1800 / 1800 Balance 1800 / 1800 Weight last 48 hrs Weight 69.49 kg Weight 65.771 kg Physical Exam Narrative: EXAM NARRATIVE: General: No acute distress, currenty on Bipap, tolerating well , AO x3 HEENT: PERRLA, pupils bilaterally equal and reactive, pallors not present Chest: Normal vesicular breath sounds, no added sounds, equal good air entry bilaterally CVS: S1-S2 regular, no murmurs, no tachycardia, no gallops, no rubs Abdomen: Soft, nontender, no organomegaly, bowel sounds present Neuro: No focal deficits, no facial deformity, AO x3, power 5/5 in all limbs Extremities: no edema, clubbing, cyanosis or LAD Data : 07/07/21 22:30 07/07/21 22:30 Micro: Microbiology 07/07/21 00:35 Blood Culture - Preliminary Blood SPECIMEN COLLECTED 07/07/21 22:30 Blood Culture - Preliminary Blood SPECIMEN COLLECTED A&P Assessment and plan (1) Pulmonary edema: Status: Acute (2) CHF (congestive heart failure): Status: Acute (3) Pleural effusion: Status: Acute (4) Hypercapnic respiratory failure: Status: Acute (5) UTI (urinary tract infection): Status: Acute Additional A&P Information Presenting today with symptoms of dysuria, inc frequency and dyspnea with ABG s/o hypoxic hypercapneic respiratory failure. 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
[2021-07-08] MEDS: pantoprazole DR 40 mg Tablet PO (08:39)
[2021-07-08] MEDS: digoxin 125 mcg Tablet PO (08:39)
[2021-07-08] MEDS: dilTIAZem ER (24HR) 120 mg Capsule PO (08:39)
[2021-07-08] MEDS: metoprolol succinate ER (24 HR) 50 mg Tablet 75 MG PO (08:39)
[2021-07-08] MEDS: FUROsemide 10 mg/mL SDV 4mL 40 MG IVP (08:40)
[2021-07-08] MEDS: aspirin 81 mg EC Tablet PO (08:40)
[2021-07-08 08:54] LABS: Procalcitonin 8.38 ng/mL (0-0.5)
--- NOTE | 2021-07-08 09:42 | PC.PHAR ---
Addendum entered by Jennifer Raymond 07/08/21 09:46: PT STATES HER DIGOXIN 125MCG WAS DCED BY A IN [facility] EXT MED HISTORY SHOWS LAST FILLED ON 03/10/21 90D/S Original Note: PT STATES SHE TAKES CARE OF HER OWN MEDICATIONS-PT STATES SHE IS TAKING THE METOPROLOL SUCCINATE ER 50MG TAB AND TAKING 3 TABS (=150MG) PO DAILY-EXT MED HISTORY SHOWS LAST FILLED ON 04/02/21 90D/S FOR 75MG DAILY ANOTHER RX FILLED ON 01/20/21 90D/S FOR 25MG DAILY
[2021-07-08] MEDS: atorvastatin 40 mg Tablet 20 MG PO (09:58)
[2021-07-08] MEDS: warfarin 5 mg Tablet PO (14:18)
[2021-07-08 14:55] LABS: Basophils # 0.1 10^3/uL (0.0-0.1); Basophils % 0.3 %; Eosinophils % 0.1 %; Hemoglobin 11.5 g/dL (11.5-15.3); Lymphocytes # 1.2 10^3/uL (0.8-4.8); Lymphocytes % 4.6 %; Mean Corpuscular HGB Conc 31.9 g/dL (30.0-36.0); Mean Corpuscular Hemoglobin 28.9 pg (28.0-34.0); Mean Corpuscular Volume 90.5 fl (81-99); Mean Platelet Volume 11.1 fL (7.4-10.4); Monocytes # 1.3 10^3/uL (0.2-0.9); Neutrophils # 23.46 10^3/uL (1.8-7.7); Nucleated Red Blood Cells % 0 %; Red Blood Count 3.98 10^6/uL (4.1-5.3); Red Cell Distribution Width 15.6 % (12.1-15.1); White Blood Count 26.7 10^3/uL (4.0-10.0)
[2021-07-08 15:17] LABS: Platelet Count 219 10^3/cmm (130-400)
[2021-07-08 15:20] LABS: Lactic Sepsis W/Reflex 2.8 mmol/L (0.5-2.2)
[2021-07-08 15:34] LABS: Alanine Aminotransferase 63 U/L (0-33); Albumin Level 3.3 g/dL (3.5-5.2); Alkaline Phosphatase 124 IU/L (35-105); Anion Gap 20.3 (5-19); Aspartate Amino Transferase 91 U/L (0-32); Blood Urea Nitrogen 22 mg/dL (8-23); Calcium 8.2 mg/dL (8.5-10.5); Carbon Dioxide 22 mmol/L (22-29); Chloride 100 mmol/L (98-107); Globulin 2.8 g/dL (1.3-4.6); Glucose 130 mg/dL (65-115); Iron 13 ug/dL (37-145); Osmolality Calculated 291 mOsm/kg (285-295); Percent Saturation 4.1 % (20-50); Potassium 4.3 mmol/L (3.5-5.1); Sodium 138 mmol/L (136-145); Thyroid Stimulating Hormone 0.39 uIU/mL (0.27-4.20); Total Bilirubin 0.5 mg/dL (0.15-1.2); Total Iron Binding Capacity 317 mcg/dl; Total Protein 6.1 g/dL (6.6-8.7); Unsaturated Iron Binding 304 ug/dL (112-347)
--- NOTE | 2021-07-08 15:43 | PM.PN ---
Subjective Subjective: Interval history: Admitted overnight. Labs appreciated. Examination lying comfortably in bed on 4 L oxygen supplementation saturating 91%. Denies any nausea, vomiting, headache, dysuria currently. Awake and alert. Vitals/I&O/Wt Last Vital Signs Temp 99.0 F 07/08/21 15:25 Pulse 80 07/08/21 15:25 Resp 17 07/08/21 15:25 BP 94/58 07/08/21 15:25 Pulse Ox 91 07/08/21 15:25 07/08/21 07/08/21 07/08/21 06:59 14:59 22:59 Intake Total 1800 / 1800 290 / 290 Output Total 150 / 150 Balance 1800 / 1800 290 / 290 -150 / 140 Weight last 48 hrs Weight 69.49 kg Weight 65.771 kg Physical Exam Narrative: EXAM NARRATIVE: General: No acute distress, on 3 to 4 L oxygen supplementation, AO x3 HEENT: PERRLA, pupils bilaterally equal and reactive, pallors not present Chest: Normal vesicular breath sounds, no added sounds, equal good air entry bilaterally CVS: S1-S2 regular, no murmurs, no tachycardia, no gallops, no rubs Abdomen: Soft, nontender, no organomegaly, bowel sounds present Neuro: No focal deficits, no facial deformity, AO x3, power 5/5 in all limbs Extremities: no edema, clubbing, cyanosis or LAD Data : 07/08/21 14:35 07/08/21 14:35 Micro: Microbiology 07/07/21 00:35 Blood Culture - Preliminary Blood SPECIMEN COLLECTED 07/07/21 22:30 Blood Culture - Preliminary Blood SPECIMEN COLLECTED A&P Assessment and plan (1) Sepsis: Status: Acute (2) Hypercapnic respiratory failure: Status: Acute (3) CHF (congestive heart failure): Status: Acute (4) Pulmonary edema: Status: Acute (5) Pleural effusion: Status: Acute (6) UTI (urinary tract infection): Status: Acute (7) H/O tricuspid valve repair: Status: Acute (8) History of mitral valve replacement with bioprosthetic valve: Status: Acute (9) Atrial fibrillation: Status: Acute (10) Warfarin anticoagulation: Status: Acute (11) Status cardiac pacemaker: Status: Acute (12) S/P CABG (coronary artery bypass graft): Status: Acute (13) HTN (hypertension): Status: Acute Additional A&P Information Sepsis: Criteria met through leukocytosis, lactic acidosis, tachypnea on admission. Unknown cause for now. CT abdomen chest pelvis results appreciated. Negative for pneumonia, pyelonephritis or enteritis. Patient does have significant leukocytosis and elevated lactate. UA negative for nitrate and leukoesterase though patient has been on antibiotics recently. Request urine culture, stool studies to rule out C. difficile. For now continue with ceftriaxone. Sputum culture, blood culture, urine culture, procalcitonin, urine Legionella, bacterial antigen, MRSA swab. COVID-19 antigen PCR sent out. Isolation precautions. Congestive heart failure: History of CABG with bioprosthetic mitral valve and tricuspid valve repair. Echocardiogram results awaited. IV Lasix 40 mg daily. Strict input output charting, daily weights. Continue with home dose of aspirin, statin. Check HbA1c, lipid panel. Atrial fibrillation: Currently rate controlled. Continue with metoprolol 75 mg daily, Cardizem 120 mg daily. Continue with home dose of warfarin. Target INR 2-2.5. Telemetry. Limited resuscitation. Cardiac diet. Warfarin will help with DVT prophylaxis. Protonix for PUD prophylaxis. Attestations Medical Necessity Statement*: Further hospitalization for management of sepsis, hypoxia, congestive heart failure Time Spent in Patient Care: Greater than 35 minutes (>than 50% of time spent in counselling and/or direct pt care on unit). 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 Fwd Diagnoses Sepsis A41.9 Hypercapnic respiratory failure J96.92 CHF (congestive heart failure) I50.9 Pulmonary edema J81.1 Pleural effusion J90 UTI (urinary tract infection) N39.0 H/O tricuspid valve repair Z98.890 History of mitral valve replacement with bioprosthetic valve Z95.3 Atrial fibrillation I48.91 Warfarin anticoagulation Z79.01 Status cardiac pacemaker Z95.0 S/P CABG (coronary artery bypass graft) Z95.1 HTN (hypertension) I10
[2021-07-08 16:38] LABS: Reflex Lactate Order REFLEX LACTIC ORDERD
[2021-07-08 18:23] LABS: Lactic Acid level (Lactate) 2.2 mmol/L (0.5-2.2)
[2021-07-08] MEDS: budesonide 0.5 mg/2 mL Neb INHALATION (20:26)
[2021-07-09] VITALS (15 sets, daily range): BP systolic 96–128; BP diastolic 45–71; PULSE 79–91; RESP 14–18; TEMP 36.6–37.9; O2SAT 88–98
[2021-07-09] MEDS: ipratropium-albuterol 3 mL Neb INHALATION ×4 (03:11→21:08)
[2021-07-09 03:21] LABS: Basophils # 0.1 10^3/uL (0.0-0.1); Basophils % 0.4 %; Eosinophils # 0.3 10^3/uL (0.0-0.8); Eosinophils % 2.4 %; Hemoglobin 10.7 g/dL (11.5-15.3); Lymphocytes # 1.8 10^3/uL (0.8-4.8); Lymphocytes % 12.9 %; Mean Corpuscular HGB Conc 31.5 g/dL (30.0-36.0); Mean Corpuscular Hemoglobin 28.7 pg (28.0-34.0); Mean Corpuscular Volume 91.2 fl (81-99); Mean Platelet Volume 10.7 fL (7.4-10.4); Monocytes # 0.9 10^3/uL (0.2-0.9); Monocytes % 6.3 %; Neutrophils # 10.76 10^3/uL (1.8-7.7); Neutrophils % 77.4 %; Nucleated Red Blood Cells % 0 %; Platelet Count 166 10^3/cmm (130-400); Red Blood Count 3.73 10^6/uL (4.1-5.3); Red Cell Distribution Width 15.8 % (12.1-15.1); White Blood Count 13.9 10^3/uL (4.0-10.0)
[2021-07-09 03:37] LABS: Estmated Average Glucose 126
[2021-07-09 03:43] LABS: Alanine Aminotransferase 50 U/L (0-33); Alkaline Phosphatase 110 IU/L (35-105); Anion Gap 13.1 (5-19); Aspartate Amino Transferase 61 U/L (0-32); Blood Urea Nitrogen 29 mg/dL (8-23); Calcium 8.2 mg/dL (8.5-10.5); Carbon Dioxide 27 mmol/L (22-29); Chloride 100 mmol/L (98-107); Chol HDL Ratio 1.92 mg/dL (0.0-4.40); Cholesterol 94 mg/dL (0-200); Globulin 2.8 g/dL (1.3-4.6); Glucose 100 mg/dL (65-115); HDL Cholesterol 49 mg/dL (60-100); LDL Cholesterol Calculated 31 mg/dL (50-129); Osmolality Calculated 288 mOsm/kg (285-295); Potassium 4.1 mmol/L (3.5-5.1); Sodium 136 mmol/L (136-145); Total Bilirubin 0.6 mg/dL (0.15-1.2); Total Protein 5.8 g/dL (6.6-8.7); Triglycerides 68 mg/dL (0-150); VLDL Cholestrol Calculation 14 mg/dL (0-30)
[2021-07-09 04:21] LABS: INR 2.08 (0.8-1.2)
--- NOTE | 2021-07-09 06:00 | XR_ITS ---
WS: [id number] Portable AP upright chest, 07/09/2021 Clinical Data: covid Comparison: Portable chest, 07/07/2021. Findings: There are increased interstitial markings which are probably chronic. The left upper lobe s hows the most distinct interstitial change. The heart is at the upper limits of normal. Midline li otomy sutures are present. There is an artificial heart valve. The aortic arch shows calcification. A permanent pacemaker remains in good position. There are monitor leads on the chest wall. XR/XR chest 1V portable [id number] Impression: 1. Increased bilateral interstitial lung markings which are probably chronic. 2. Atherosclerosis and cardiomegaly. 3. Artificial heart valve and permanent pacemaker.
--- NOTE | 2021-07-09 07:00 | USCV_ITS ---
Ivet Caruso Age: 86 Gender: F : 1935 Exam Date: 07/09/2021 06:43 Ordering Phys: Jane Palacios MD Technologist: Jennifer Nguyễn Exam Location: [facility] [place] Indication: CHF BP: 100 / 57 HR: 80 Rhythm: Sinus Technical Quality: Poor MEASUREMENTS (Male / Female) Normal Values 2D ECHO LV Diastolic Diameter PLAX 3.6 cm 4.2 - 5.9 / 3.9 - 5.3 cm LV Systolic Diameter PLAX 2.5 cm IVS Diastolic Thickness 1.5 cm 0.6 - 1.0 / 0.6 - 0.9 cm IVS Systolic Thickness 1.8 cm LVPW Diastolic Thickness 1.3 cm 0.6 - 1.0 / 0.6 - 0.9 cm LVPW Systolic Thickness 1.5 cm RV Chamber Size 3.1 cm LVOT Diameter 2.0 cm LV Ejection Fraction 2D Teich 55.4 % LV Ejection Fraction MOD 2C 52.8 % LV Ejection Fraction 2C AL 53.9 % LA Diameter 4.0 cm LA Width 4.2 cm LA Height 4.5 cm RA Width 4.0 cm RA Height 4.3 cm Aorta at Sinotubular Diameter 1.6 cm DOPPLER AV Peak Velocity 151.0 cm/s LVOT Peak Velocity 94.0 cm/s AV Area Cont Eq vti 1.8 cm squared AV Area Cont Eq pk 2.0 cm squared TR Peak Velocity 320.3 cm/s TR Peak Gradient 41.0 mmHg TR Mean Velocity 220.4 cm/s TR Mean Gradient 21.3 mmHg TR Velocity Time Integral 104.7 cm TV Peak E Velocity 103.0 cm/s Right Atrial Pressure 3.0 mmHg Pulmonary Artery Systolic Pressu 44.0 mmHg PV Peak Velocity 90.0 cm/s RV Acceleration Time 0.1 s RV Ejection Time 0.3 s RV AcT/ET 0.3 FINDINGS Left Ventricle Normal left ventricular cavity size. Moderately decreased left ventricular systolic function. Global left ventricular hypokinesis. Left ventricular ejection fraction is estimated at 40 %. Right Ventricle Normal right ventricular size. Moderate pulmonary hypertension, RVSP 44 mmHg. Right Atrium Normal right atrial size. Left Atrium Severely increased left atrial size. Mitral Valve Severely thickened mitral valve. Possible bioprosthetic valve or highly calcified valve sitting in mitral position .mild mitral valve regurgitation. Cannot assess mitral valve stenosis if indicated order transesophageal echocardiogram Aortic Valve Possible Bioprosthetic aortic valve sitting in normal position without significant valvular or paravalvular leak. Valve is not well visualized Tricuspid Valve Thickened tricuspid valve. No tricuspid valve regurgitation. Pulmonic Valve Structurally normal pulmonic valve without significant stenosis. There is no pulmonic regurgitation. Pericardium Normal pericardium without effusion. Aorta Normal ascending aorta dimension. CONCLUSIONS 1-Normal left ventricular cavity size. Moderately decreased left ventricular systolic function. Global left ventricular hypokinesis. Left ventricular ejection fraction is estimated at 40 %. 2-Normal right ventricular size. Moderate pulmonary hypertension, RVSP 44 mmHg. 3-Severely increased left atrial size. 4-Severely thickened mitral valve. Bioprosthetic valve sitting in mitral position .mild mitral valve regurgitation. Cannot assess mitral valve stenosis if indicated order transesophageal echocardiogram. 5-Bioprosthetic aortic valve sitting in normal position without significant valvular or paravalvular leak. 6-Thickened tricuspid valve. No tricuspid valve regurgitation. 7-There is no pericardial effusion. 8-Right atrial pressure is around 10 mm of mercury. 9-There are no prior echocardiogram studies to compare. Neyda Romo MD (Electronically Signed) Final Date: 09 July 2021 19:21 S
[2021-07-09] MEDS: budesonide 0.5 mg/2 mL Neb INHALATION ×2 (08:36→21:08)
[2021-07-09] MEDS: atorvastatin 40 mg Tablet 20 MG PO (08:48)
[2021-07-09] MEDS: cefTRIAXone 1,000 MG in sodium chloride 0.9% (plus) 50 ML 100 MG IV (08:48)
[2021-07-09] MEDS: aspirin 81 mg EC Tablet PO (08:49)
[2021-07-09] MEDS: pantoprazole DR 40 mg Tablet PO (08:49)
[2021-07-09] MEDS: digoxin 125 mcg Tablet PO (10:06)
[2021-07-09] MEDS: dilTIAZem ER (24HR) 120 mg Capsule PO (10:06)
[2021-07-09] MEDS: methIMAzole 5 MG Tablet PO (10:06)
[2021-07-09] MEDS: metoprolol succinate ER (24 HR) 50 mg Tablet 75 MG PO (10:07)
[2021-07-09] MEDS: FUROsemide 10 mg/mL SDV 4mL 40 MG IVP (10:07)
--- NOTE | 2021-07-09 14:23 | PC.CHAP ---
Pastoral Care Encounter/Spiritual Assessment Type of Contact [] Declined commercial escrow officer visit [] Patient/Family/Request visit [] Outpatient visit [] Follow-up visit [] Physician referral [] Code/Alert [] Routine visit [] Staff referral [] Actively dying [] Patient sleeping [] Family support [] [] Out of room [] Palliative care [] [] Receiving care in room [] Pre-surgical visit [] Trauma [] Long length of stay [] ICU visit [X] Other: Isolation Relational/Emotional Strength [] Patient feels connected with others/family/visitors/staff [] Distress [] Loneliness/isolation [] Abandonment Spirituality of Patient [] Person of Ashley [] Attends Gnosticist of their Ashley [] Believes in Prayer [] Reads Bible or Adventist materials [] There are Spiritual issues to be addressed Product Transfer Pumper Interventions [] Prayer [] Active listening [] Non-anxious presence [] Spiritual/emotional support [] Crisis/trauma care [] Spiritual counseling [] Bereavement support [] Provided bereavement packet [] Provided Bible/devotional materials [] Provided toy/stuffed animal, coloring book to patient or family member [] Provided Communion [] Anointing/[place] [] Salvation [] Completed spiritual assessment [] Other: Impact on Illness or Injury [] Angry [] Fearful [] Anxious [] Often cries [] Exhaustion [] Unable to work [] Unable to attend gnosticist [] Unable to walk/stand [] Unable to read [] Unable to drive [] Unable to eat/drink [] Unable to sleep [] Unable to be with family [] Patient intubated [] Other: Summary Isolation Time spent with patient 5 mins
--- NOTE | 2021-07-09 14:44 | P.PN_ITS ---
Subjective Subjective: Interval history: No events overnight. Patient has remained hemodynamically stable and afebrile. Currently on room air saturating 92%. States she is feeling better. No diarrhea since admission. Denies any dysuria or difficulty passing urine currently. Vitals/I&O/Wt Last Vital Signs Temp 98.5 F 07/09/21 11:50 Pulse 89 07/09/21 14:19 Resp 18 07/09/21 14:19 BP 111/69 07/09/21 11:50 Pulse Ox 92 07/09/21 14:19 07/08/21 07/09/21 07/09/21 22:59 06:59 14:59 Intake Total 240 / 530 200 / 730 170 / 170 Output Total 150 / 150 Balance 90 / 380 200 / 580 170 / 170 Weight last 48 hrs Weight 69.082 kg Weight 69.49 kg Weight 65.771 kg Physical Exam Narrative: EXAM NARRATIVE: General: No acute distress, on 3 to 4 L oxygen supplementation, AO x3 HEENT: PERRLA, pupils bilaterally equal and reactive, pallors not present Chest: Normal vesicular breath sounds, no added sounds, equal good air entry bilaterally CVS: S1-S2 regular, no murmurs, no tachycardia, no gallops, no rubs Abdomen: Soft, nontender, no organomegaly, bowel sounds present Neuro: No focal deficits, no facial deformity, AO x3, power 5/5 in all limbs Extremities: no edema, clubbing, cyanosis or LAD Data : 07/09/21 03:00 07/09/21 03:00 Micro: Microbiology 07/08/21 21:33 MRSA Culture - Final Nose 07/07/21 22:30 Bacterial Antigens - Final Urine Kidney 07/07/21 22:30 Legionella Urinary Antigen - Final Unknown Source 07/07/21 00:35 Blood Culture - Preliminary Blood NEGATIVE TO DATE 07/07/21 22:30 Blood Culture - Preliminary Blood NEGATIVE TO DATE A&P Assessment and plan (1) Sepsis: Status: Acute (2) Hypercapnic respiratory failure: Status: Acute (3) CHF (congestive heart failure): Status: Acute (4) Pulmonary edema: Status: Acute (5) Pleural effusion: Status: Acute (6) UTI (urinary tract infection): Status: Acute (7) H/O tricuspid valve repair: Status: Acute (8) History of mitral valve replacement with bioprosthetic valve: Status: Acute (9) Atrial fibrillation: Status: Acute (10) Warfarin anticoagulation: Status: Acute (11) Status cardiac pacemaker: Status: Acute (12) S/P CABG (coronary artery bypass graft): Status: Acute (13) HTN (hypertension): Status: Acute Additional A&P Information Sepsis: Criteria met through leukocytosis, lactic acidosis, tachypnea on admission. Unknown cause for now. CT abdomen chest pelvis results appreciated. Negative for pneumonia, pyelonephritis or enteritis. Patient does have significant leukocytosis and elevated lactate. UA negative for nitrate and leukoesterase though patient has been on antibiotics recently. C. difficile awaited, urine culture pending. For now continue with ceftriaxone. COVID-19 antigen pending. Continue with isolation precautions. Pro-Adrien, urine Legionella, bacterial antigen negative. Congestive heart failure: History of CABG with bioprosthetic mitral valve and tricuspid valve repair. Echocardiogram results awaited. IV Lasix 40 mg daily. Strict input output charting, daily weights. Continue with home dose of aspirin, statin. A1c 6. Lipid panel results appreciated. Atrial fibrillation: Currently rate controlled. Continue with metoprolol 75 mg twice daily, digoxin 125 mcg daily, Cardizem 120 mg daily. Continue with home dose of warfarin. Target INR 2-2.5. Telemetry. Limited resuscitation. Cardiac diet. Warfarin will help with DVT prophylaxis. Protonix for PUD prophylaxis. Attestations Medical Necessity Statement*: Requires further hospitalization for management of sepsis secondary to possible UTI, rule out C. difficile, pending COVID-19 PCR results Time Spent in Patient Care: Greater than 35 minutes (>than 50% of time spent in counselling and/or direct pt care on unit) . 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
[2021-07-09 14:51] LABS: Coronavirus Test Green County Not Detected
[2021-07-09] MEDS: warfarin 5 mg Tablet PO (15:49)
[2021-07-09] MEDS: metoprolol tartrate 50 mg Tablet 75 MG PO (20:32)
[2021-07-10] VITALS (13 sets, daily range): BP systolic 113–136; BP diastolic 68–77; PULSE 60–87; RESP 16–18; TEMP 36.6–37.1; O2SAT 90–94; BMI 25.1
[2021-07-10] MEDS: ipratropium-albuterol 3 mL Neb INHALATION ×2 (03:48→08:15)
[2021-07-10 05:34] LABS: Basophils % 0.5 %; Eosinophils # 0.4 10^3/uL (0.0-0.8); Eosinophils % 4.8 %; Hematocrit 36.5 % (37.0-47.0); Hemoglobin 11.3 g/dL (11.5-15.3); Lymphocytes # 1.8 10^3/uL (0.8-4.8); Mean Corpuscular Hemoglobin 28.1 pg (28.0-34.0); Mean Corpuscular Volume 90.8 fl (81-99); Monocytes # 0.5 10^3/uL (0.2-0.9); Monocytes % 7.3 %; Neutrophils # 4.68 10^3/uL (1.8-7.7); Nucleated Red Blood Cells % 0 %; Platelet Count 190 10^3/cmm (130-400); Red Blood Count 4.02 10^6/uL (4.1-5.3); Red Cell Distribution Width 15.3 % (12.1-15.1); White Blood Count 7.4 10^3/uL (4.0-10.0)
[2021-07-10 05:50] LABS: INR 1.87 (0.8-1.2)
[2021-07-10 05:57] LABS: Alanine Aminotransferase 39 U/L (0-33); Albumin Level 3.2 g/dL (3.5-5.2); Alkaline Phosphatase 111 IU/L (35-105); Anion Gap 11.9 (5-19); Aspartate Amino Transferase 37 U/L (0-32); Blood Urea Nitrogen 24 mg/dL (8-23); Calcium 8.5 mg/dL (8.5-10.5); Carbon Dioxide 29 mmol/L (22-29); Chloride 99 mmol/L (98-107); Globulin 2.8 g/dL (1.3-4.6); Glucose 85 mg/dL (65-115); Osmolality Calculated 285 mOsm/kg (285-295); Potassium 3.9 mmol/L (3.5-5.1); Sodium 136 mmol/L (136-145); Total Bilirubin 0.6 mg/dL (0.15-1.2)
[2021-07-10] MEDS: budesonide 0.5 mg/2 mL Neb INHALATION ×2 (08:15→21:11)
[2021-07-10] MEDS: metoprolol tartrate 50 mg Tablet 75 MG PO ×2 (08:21→21:11)
[2021-07-10] MEDS: atorvastatin 40 mg Tablet 20 MG PO (08:21)
[2021-07-10] MEDS: digoxin 125 mcg Tablet PO (08:22)
[2021-07-10] MEDS: pantoprazole DR 40 mg Tablet PO (08:22)
[2021-07-10] MEDS: aspirin 81 mg EC Tablet PO (08:22)
[2021-07-10] MEDS: cefTRIAXone 1,000 MG in sodium chloride 0.9% (plus) 50 ML 100 MG IV (08:22)
[2021-07-10] MEDS: FUROsemide 10 mg/mL SDV 4mL 40 MG IVP (08:22)
[2021-07-10] MEDS: dilTIAZem ER (24HR) 120 mg Capsule PO (09:40)
[2021-07-10] MEDS: warfarin 3 mg Tablet 6 MG PO (12:49)
--- NOTE | 2021-07-10 13:22 | P.PN_ITS ---
Subjective Subjective: Interval history: No acute events overnight. Has remained hemodynamically stable and afebrile. Currently on examination sitting up in chair on room air. Denies any nausea, vomiting, headache. Eager to go home. Discussed in detail that we are waiting for urine cultures and stool study results to come back. Discussed that she would most likely need to stay in hospital for 1 more day to complete the course of ceftriaxone. Patient is agreeable. Vitals/I&O/Wt Last Vital Signs Temp 98.1 F 07/10/21 11:12 Pulse 82 07/10/21 13:21 Resp 18 07/10/21 11:12 BP 113/75 07/10/21 11:12 Pulse Ox 91 07/10/21 11:12 07/09/21 07/10/21 07/10/21 22:59 06:59 14:59 Intake Total 290 / 290 Output Total 300 / 300 600 / 900 1500 / 1500 Balance -300 / -130 -600 / -730 -1210 / -1210 Weight last 48 hrs Weight 66.451 kg Weight 69.082 kg Physical Exam Narrative: EXAM NARRATIVE: General: No acute distress, on 3 to 4 L oxygen supplementation, AO x3 HEENT: PERRLA, pupils bilaterally equal and reactive, pallors not present Chest: Normal vesicular breath sounds, no added sounds, equal good air entry bilaterally CVS: S1-S2 regular, no murmurs, no tachycardia, no gallops, no rubs Abdomen: Soft, nontender, no organomegaly, bowel sounds present Neuro: No focal deficits, no facial deformity, AO x3, power 5/5 in all limbs Extremities: no edema, clubbing, cyanosis or LAD Data : 07/10/21 05:18 07/10/21 05:18 Micro: Microbiology 07/10/21 09:05 Stool Lactoferrin - Final Stool Occult Blood (FIT) - Final 07/08/21 21:33 MRSA Culture - Final Nose 07/07/21 22:30 Bacterial Antigens - Final Urine Kidney 07/07/21 22:30 Legionella Urinary Antigen - Final Unknown Source A&P Assessment and plan (1) Sepsis: Status: Acute (2) Hypercapnic respiratory failure: Status: Acute (3) CHF (congestive heart failure): Status: Acute (4) Pulmonary edema: Status: Acute (5) Pleural effusion: Status: Acute (6) UTI (urinary tract infection): Status: Acute (7) H/O tricuspid valve repair: Status: Acute (8) History of mitral valve replacement with bioprosthetic valve: Status: Acute (9) Atrial fibrillation: Status: Acute (10) Warfarin anticoagulation: Status: Acute (11) Status cardiac pacemaker: Status: Acute (12) S/P CABG (coronary artery bypass graft): Status: Acute (13) HTN (hypertension): Status: Acute Additional A&P Information Sepsis: Criteria met through leukocytosis, lactic acidosis, tachypnea on admission. Unknown cause for now. CT abdomen chest pelvis results appreciated. Negative for pneumonia, pyelonephritis or enteritis. Patient does have significant leukocytosis and elevated lactate. UA negative for nitrate and leukoesterase though patient has been on antibiotics recently. C. difficile awaited, urine culture pending. For now continue with ceftriaxone. COVID-19 antigen pending. Continue with isolation precautions. Procalcitonin still elevated but trending down. Most likely remains elevated secondary to liver dysfunction for possible liver cirrhosis as seen on CT abdomen pelvis. Congestive heart failure: History of CABG with bioprosthetic mitral valve and tricuspid valve repair. Echocardiogram shows an EF of 40% with global LV hypokinesia, moderate pulmonary hypertension, severely increased LA size, severely thickened mitral valve with mild mitral regurgitation, difficult to assess mitral valve stenosis because of poor study, bioprosthetic aortic valve normal in position without significant valvular or paravalvular leak, thickened tricuspid valve without TR with RVSP of 10 mmHg. IV Lasix 40 mg daily. Strict input output charting, daily weights. Continue with home dose of aspirin, statin. A1c 6. Lipid panel results appreciated. Atrial fibrillation: Currently rate controlled. Continue with metoprolol 75 mg twice daily, digoxin 125 mcg daily, Cardizem 120 mg daily. Subtherapeutic INR: Goal INR 2-2.5. Increase dose of warfarin by 10% weekly. Warfarin 6 mg oral daily. Telemetry. Limited resuscitation. Cardiac diet. Warfarin will help with DVT prophylaxis. Protonix for PUD prophylaxis. Attestations Medical Necessity Statement*: ReportNeeds further hospitalization for management of sepsis severe UTI, rule out C. difficile, congestive heart failure because of multiple valvular disorder, subtherapeutic INR Time Spent in Patient Care: Greater than 35 minutes (>than 50% of time spent in counselling and/or direct pt care on unit) . Coding Level of Care Code Acute Electronics Technician for Chg Fwd Diagnoses Sepsis A41.9 Hypercapnic respiratory failure J96.92 CHF (congestive heart failure) I50.9 Pulmonary edema J81.1 Pleural effusion J90 UTI (urinary tract infection) N39.0 H/O tricuspid valve repair Z98.890 History of mitral valve replacement with bioprosthetic valve Z95.3 Atrial fibrillation I48.91 Warfarin anticoagulation Z79.01 Status cardiac pacemaker Z95.0 S/P CABG (coronary artery bypass graft) Z95.1 HTN (hypertension) I10
--- NOTE | 2021-07-10 14:35 | PC.CHAP ---
Pastoral Care Encounter/Spiritual Assessment Type of Contact [] Declined welfare project manager visit [] Patient/Family/Request visit [] Outpatient visit [xx] Follow-up visit [] Physician referral [] Code/Alert [xx] Routine visit [] Staff referral [] Actively dying [] Patient sleeping [] Family support [] [] Out of room [] Palliative care [] [] Receiving care in room [] Pre-surgical visit [] Trauma [] Long length of stay [] ICU visit [] Other: Relational/Emotional Strength [xx] Patient feels connected with others/family/visitors/staff [] Distress [] Loneliness/isolation [] Abandonment Spirituality of Patient [xx] Person of Ashley [] Attends Buddhism of their Ashley [xx] Believes in Prayer [xx] Reads Bible or Rastafarian materials [] There are Spiritual issues to be addressed Drain Tile Machine Operator Interventions [xx] Prayer [xx] Active listening [xx] Non-anxious presence [] Spiritual/emotional support [] Crisis/trauma care [] Spiritual counseling [] Bereavement support [] Provided bereavement packet [xx] Provided Bible/devotional materials [] Provided toy/stuffed animal, coloring book to patient or family member [] Provided Communion [] Anointing/[place] [] Salvation [xx] Completed spiritual assessment [] Other: Impact on Illness or Injury [] Angry [] Fearful [] Anxious [] Often cries [] Exhaustion [] Unable to work [] Unable to attend alevism [] Unable to walk/stand [] Unable to read [] Unable to drive [] Unable to eat/drink [] Unable to sleep [] Unable to be with family [] Patient intubated [] Other: Summary Patient is feeling and expects to be discharged on Tuesday if all goes well. Her son was present. Time spent with patient 5 minutes
[2021-07-11] VITALS (10 sets, daily range): BP systolic 119–146; BP diastolic 67–76; PULSE 79–89; RESP 14–18; TEMP 36.7–36.8; O2SAT 92–96
--- NOTE | 2021-07-11 06:00 | XRR_ITS ---
PROCEDURE INFORMATION: Exam: XR Chest Exam date and time: 07/11/2021 6:00 AM Age: 86 years old Clinical indication: Shortness of breath; Additional info: Covid TECHNIQUE: Imaging protocol: XR of the chest. Views: 1 view. Total images: 1 COMPARISON: CR XR chest 1V portable [id number] 07/09/2021 6:54 AM FINDINGS: Tubes, catheters and devices: A pacemaker device is present, its leads in appropriate position. Lungs: Coarse chronic pulmonary markings. Trace atelectasis or scar noted in the left lung base. Pleural spaces: Unremarkable. No pleural effusion. No pneumothorax. Heart/Mediastinum: Heart size is stable when compared to the prior exam. Bones/joints: Osseous structures are unchanged from the prior exam. Other findings: Stable postsurgical changes. XR/XR chest 1V portable [id number] IMPRESSION: 1. Coarse chronic pulmonary markings. 2. Trace atelectasis or scar noted in the left lung base.
--- NOTE | 2021-07-11 08:41 | PC.SOCIAL ---
IMM update IMM updated with patient. Verbalized an understanding. Copy Pg 2 provided. Initialled, dated, timed, and placed in chart.
[2021-07-11] MEDS: budesonide 0.5 mg/2 mL Neb INHALATION (08:57)
[2021-07-11] MEDS: digoxin 125 mcg Tablet PO (09:13)
[2021-07-11] MEDS: aspirin 81 mg EC Tablet PO (09:13)
[2021-07-11] MEDS: pantoprazole DR 40 mg Tablet PO (09:13)
[2021-07-11] MEDS: methIMAzole 5 MG Tablet PO (09:14)
[2021-07-11] MEDS: atorvastatin 40 mg Tablet 20 MG PO (09:15)
[2021-07-11] MEDS: dilTIAZem ER (24HR) 120 mg Capsule PO (09:15)
[2021-07-11] MEDS: metoprolol tartrate 50 mg Tablet 75 MG PO (09:16)
[2021-07-11] MEDS: FUROsemide 10 mg/mL SDV 4mL 40 MG IVP (09:55)
[2021-07-11] MEDS: cefTRIAXone 1,000 MG in sodium chloride 0.9% (plus) 50 ML 100 MG IV (09:57)
--- NOTE | 2021-07-11 12:42 | P.DS_ITS ---
Discharge Providers Date of Admission: 07/08/21 02:56 Date of Discharge: July 11, 2021 Attending Provider at Admission: Jane Palacios MD Attending Provider at Discharge: Fred Hartmann MD Diagnoses at Discharge Discharge Diagnosis (1) Sepsis: Status: Acute (2) Hypercapnic respiratory failure: Status: Acute (3) CHF (congestive heart failure): Status: Acute (4) Pulmonary edema: Status: Acute (5) Pleural effusion: Status: Acute (6) UTI (urinary tract infection): Status: Acute (7) H/O tricuspid valve repair: Status: Acute (8) History of mitral valve replacement with bioprosthetic valve: Status: Acute (9) Atrial fibrillation: Status: Acute (10) Warfarin anticoagulation: Status: Acute (11) Status cardiac pacemaker: Status: Acute (12) S/P CABG (coronary artery bypass graft): Status: Acute (13) HTN (hypertension): Status: Acute (14) Postmenopause atrophic vaginitis: Status: Acute Reason for Visit Reason for Visit: UTI, Cant walk Shaking, Nausea Hospital Course Hospital Course Ivet Caruso is a 86 year old female with past medical history of coronary artery disease and valvular heart disease. She had bypass surgery, mitral valve replacement with bioprosthetic valve, tricuspid valve repair and maze procedure for atrial fibrillation performed at [facility] in 2019. She is anticoagulated with Coumadin. She has a pacemaker in place. Presents today after being diagnosed with UTI by her PCP yesterday morning and being started on MAcrobid. Today noted to be increasingly short of breath and sotero tto ER. ABG with hypoxic hypercapneic respiratory failure, improved on Bipap, resp distress also noted to be improving. States she has had progressive dyspnea over the past 3-4 months, appears to be worsened during episodes of UTI. Daughter mentions patient being confused additionally however currently alert awake and oriented. EKG with paced rhythm, mildly elevated troponin with delta 9. Elevated BNP 2200. B/L pleural effusions noted. Vaccinated for COVID 04 Nov 2020. Patient was under the hospital for management of hypoxia. COVID-19 and bacterial pneumonia were ruled out with a negative PCR and chest imaging negative for any consolidation. Her chest x-ray was consistent with mild pulmonary vascular congestion for which she was treated with IV diuresis. Patient responded well to the treatment and has been on room air for last 3 days. Prior to hospitalization patient was being treated for UTI so she was started on IV ceftriaxone. Urine culture came back negative. Patient did have leukocytosis and episodes of diarrhea. C. difficile was ruled out. Patient's blood cultures remain negative. Echocardiogram was done which showed an EF of 40% with global LV hypokinesia, moderate pulmonary hypertension with RVSP of 44 mmHg, severe LA dilatation, normal positioning bioprosthetic aortic valve without perivalvular leak, bioprosthetic mitral valve with mild MR though mitral stenosis could not be assessed because of poor echo window. Patient is advised to have a AYLA. Patient would like to follow-up with a trains service conductor as an outpatient for further work-up. Patient was also found to be subtherapeutic INR for which her home dose of warfarin was increased from 5 mg oral daily to 6 mg daily. She is advised to follow-up with a primary care provider within next 1 week for repeat INR. Patient is been discharged in hemodynamically stable condition with advised to follow-up with a primary trains service conductor within next 1 week. Patient is also advised to follow-up with product architect for management of atrophic vaginitis which could be leading to UTI symptoms as well. Physical Exam Narrative: EXAM NARRATIVE: General: No acute distress, on room air, AO x3 HEENT: PERRLA, pupils bilaterally equal and reactive, pallors not present Chest: Normal vesicular breath sounds, no added sounds, equal good air entry bilaterally CVS: S1-S2 regular, no murmurs, no tachycardia, no gallops, no rubs Abdomen: Soft, nontender, no organomegaly, bowel sounds present Neuro: No focal deficits, no facial deformity, AO x3, power 5/5 in all limbs Extremities: no edema, clubbing, cyanosis or LAD Discharge Data Data Completed and Pending: Completed Studies During Hospitalization Category Date Time Status CT angio chest w abd pel w con Urge nt Cat Scan 07/07/21 23:[address] head wo con* 7 0450 Urgent Cat Scan 07/07/21 22:42 Completed XR chest 1V sweta ble 01001 Q48H Exams 07/09/21 06:00 Completed XR chest 1V sweta ble [id number] Q48H Exams 07/11/21 06:00 Completed XR chest 1V sweta ble [id number] Stat Exams 07/07/21 23:12 Completed CV. echo complete * [id number] Routine Ultrasound 07/09/21 07:00 Completed Pending at discharge Category Date Time Status XR chest 1V sweta ble [id number] Q48H Exams 07/13/21 06:00 Ordered Blood Culture Sta t Lab 07/07/21 00:35 Results Addt'l Data from Hospital Stay: Laboratory Results WBC 7.4 10^3/uL (4.0- 10.0) 07/10/21 05:18 RBC 4.02 10^6/uL (4.1 -5.3) L 07/10/21 05:18 Hgb 11.3 g/dL (11.5-1 5.3) L 07/10/21 05:18 Hct 36.5 % (37.0-47.0 ) L 07/10/21 05:18 MCV 90.8 fl (81-99) 07/10/21 05:18 MCH 28.1 pg (28.0-34. 0) 07/10/21 05:18 MCHC 31.0 g/dL (30.0-3 6.0) 07/10/21 05:18 RDW 15.3 % (12.1-15.1 ) H 07/10/21 05:18 Plt Count 190 10^3/cmm (130 -400) 07/10/21 05:18 MPV 11.0 fL (7.4-10.4 ) H 07/10/21 05:18 Neut % (Auto) 63.0 % 07/10/21 05:18 Lymph % (Auto) 24.0 % 07/10/21 05:18 Holt % (Auto) 7.3 % 07/10/21 05:18 Eos % (Auto) 4.8 % 07/10/21 05:18 Baso % (Auto) 0.5 % 07/10/21 05:18 Neut # (Auto) 4.68 10^3/uL (1.8 -7.7) 07/10/21 05:18 Lymph # (Auto) 1.8 10^3/uL (0.8- 4.8) 07/10/21 05:18 Holt # (Auto) 0.5 10^3/uL (0.2- 0.9) 07/10/21 05:18 Eos # (Auto) 0.4 10^3/uL (0.0- 0.8) 07/10/21 05:18 Baso # (Auto) 0.0 10^3/uL (0.0- 0.1) 07/10/21 05:18 Nucleated RBC % (a uto) 0 % 07/10/21 05:18 Nucleated RBCs # 0.0 /100WBC 07/10/21 05:18 PT 21.90 SECONDS (12 .1-14.9) H 07/10/21 05:18 INR 1.87 (0.8-1.2) H 07/10/21 05:18 D-Dimer <= 0.27 ug/mIFEU (0-0.59) 07/07/21 22:30 Specimen Type Arterial 07/08/21 02:40 Sample Site Brachial, right 07/08/21 02:40 ABG pH 7.35 (7.35-7.45) 07/08/21 02:40 ABG pCO2 42.4 mmHg (35-45) 07/08/21 02:40 ABG pO2 116.0 mmHg (80.0- 100.0) H 07/08/21 02:40 ABG HCO3 23.4 mmol/L (22-2 6) 07/08/21 02:40 ABG Base Excess -2.2 mmol/L (-2.0 -2.0) L 07/08/21 02:40 Mayo Test N/a 07/08/21 02:40 Hematocrit 37.1 % (37-47) 07/08/21 02:40 O2 Delivery Device Bipap 07/08/21 02:40 O2 Liters/Min 4.0 % 07/08/21 00:39 FiO2 45.0 % 07/08/21 02:40 Warp Tying Machine Knotter ID Harkr 07/08/21 02:40 Sodium 136 mmol/L (136-1 45) 07/10/21 05:18 Potassium 3.9 mmol/L (3.5-5 .1) 07/10/21 05:18 Chloride 99 mmol/L (98-107 ) 07/10/21 05:18 Carbon Dioxide 29 mmol/L (22-29) 07/10/21 05:18 Anion Gap 11.9 (5-19) 07/10/21 05:18 BUN 24 mg/dL (8-23) H 07/10/21 05:18 Creatinine 0.6 mg/dL (0.5-0. 9) 07/10/21 05:18 GFR Calculation Not Reportable 07/10/21 05:18 Glucose 85 mg/dL (65-115) 07/10/21 05:18 Estimat Average Gl ucose 126 07/09/21 03:00 Hemoglobin A1c 6.0 % (4.0-6.0) 07/09/21 03:00 Calculated Osmolal ity 285 mOsm/kg (285- 295) 07/10/21 05:18 Lactic Acid 2.8 mmol/L (0.5-2 .2) H 07/08/21 14:35 Lactic Acid (Sepsi s) 2.2 mmol/L (0.5-2 .2) 07/08/21 17:55 Lactate 2.6 mmol/L (0.5-2 .2) H 07/07/21 22:30 Calcium 8.5 mg/dL (8.5-10 .5) 07/10/21 05:18 Magnesium 2.0 mg/dL (1.7-2. 3) 07/09/21 03:00 Iron 13 ug/dL (37-145) L 07/08/21 14:35 TIBC 317 mcg/dl 07/08/21 14:35 % Saturation 4.1 % (20-50) L 07/08/21 14:35 Unsat Iron Binding 304 ug/dL (112-34 7) 07/08/21 14:35 Total Bilirubin 0.6 mg/dL (0.15-1 .2) 07/10/21 05:18 AST 37 U/L (0-32) H 07/10/21 05:18 ALT 39 U/L (0-33) H 07/10/21 05:18 Alkaline Phosphata se 111 IU/L (35-105) H 07/10/21 05:18 Troponin T Baselin e 11 ng/L (0-10) H 07/07/21 22:30 Troponin T 120 Min phoebe 13.77 ng/L (0-10) H 07/08/21 00:35 Delta Troponin T 2.77 ABS# (0-10) 07/08/21 00:35 Troponin T Hi Sens 6Hr 19.99 ng/L (0-10) H 07/08/21 04:55 Troponin T Hi Sens 6Hr Delta 8.99 ng/L (0-12) 07/08/21 04:55 NT-Pro-B Natriuret Pep 2238 pg/mL (0-450 ) H 07/07/21 22:30 Total Protein 6.0 g/dL (6.6-8.7 ) L 07/10/21 05:18 Albumin 3.2 g/dL (3.5-5.2 ) L 07/10/21 05:18 Globulin 2.8 g/dL (1.3-4.6 ) 07/10/21 05:18 Triglycerides 68 mg/dL (0-150) 07/09/21 03:00 Cholesterol 94 mg/dL (0-200) 07/09/21 03:00 LDL Cholesterol, C alc 31 mg/dL (50-129) L 07/09/21 03:00 Total VLDL Cholest sophia 14 mg/dL (0-30) 07/09/21 03:00 HDL Cholesterol 49 mg/dL (60-100) L 07/09/21 03:00 Cholesterol/HDL Ra patt 1.92 mg/dL (0.0-4 .40) 07/09/21 03:00 Procalcitonin 4.80 ng/mL (0-0.5 ) H 07/10/21 05:18 TSH 0.39 uIU/mL (0.27 -4.20) 07/08/21 14:35 Urine Color Yellow (Yellow) 07/07/21 22:30 Urine Appearance Clear (CLEAR) 07/07/21 22:30 Urine pH 5 (5-7) 07/07/21 22:30 Ur Specific Gravit y 1.005 (1.005-1.0 30) 07/07/21 22:30 Urine Protein Trace (Negative) 07/07/21 22:30 Urine Glucose (UA) Norm (Normal) 07/07/21 22:30 Urine Ketones Negative (Negati ve) 07/07/21 22:30 Urine Blood Neg (Negative) 07/07/21 22:30 Urine Nitrate Negative (Negati ve) 07/07/21 22:30 Urine Bilirubin Neg (Negative) 07/07/21 22:30 Urine Urobilinogen Norm mg/dL (Negat rené) 07/07/21 22:30 Ur Leukocyte Margaret ase Negative (Negati ve) 07/07/21 22:30 Urine RBC 0-4 /hpf (0-2) H 07/07/21 22:30 Urine WBC 5-10 /hpf (0-5) H 07/07/21 22:30 Ur Squamous Epith Cells 0-4 /hpf (0-5) H 07/07/21 22:30 Amorphous Sediment Not Reportable 07/07/21 22:30 Urine Bacteria Trace /hpf (NONE) 07/07/21 22:30 Urine Mucus 1+ /hpf 07/07/21 22:30 Digoxin 0.3 ng/mL (0.6-1. 2) L 07/07/21 22:30 Nasal/Oral COVID-1 9 PCR Not detected 07/08/21 12:00 SARS-CoV-2 Ag (Rap id) Negative (Negati ve) 07/07/21 22:[address] 07/07/21 22:42 IMPRESSION: 1. No acute intracranial abnormality demonstrated. 2. There is no interval change from the prior examination. Radiation Dose CTDIVOL = (mGy): DLP = 2089.26 (mGy-cm) Chest/Abdomen/Pelvis CT 07/07/21 23:37 IMPRESSION: 1. Negative for focal acute inflammatory process in the abdomen or pelvis. 2. Hepatic steatosis. 3. Mild constipation. 4. Right kidney cyst, negative for follow-up advised. 5. Cirrhotic liver suspected. 6. Small hiatal hernia. Radiation Dose CTDIVOL = (mGy): DLP = 1063.53~1063.53 (mGy-cm) Chest X-Ray 07/11/21 06:00 IMPRESSION: 1. Coarse chronic pulmonary markings. 2. Trace atelectasis or scar noted in the left lung base. Echocardiogram: CONCLUSIONS 1-Normal left ventricular cavity size. Moderately decreased left ventricular systolic function. Global left ventricular hypokinesis. Left ventricular ejection fraction is estimated at 40 %. 2-Normal right ventricular size. Moderate pulmonary hypertension, RVSP 44 mmHg. 3-Severely increased left atrial size. 4-Severely thickened mitral valve. Bioprosthetic valve sitting in mitral position .mild mitral valve regurgitation. Cannot assess mitral valve stenosis if indicated order transesophageal echocardiogram. 5-Bioprosthetic aortic valve sitting in normal position without significant valvular or paravalvular leak. 6-Thickened tricuspid valve. No tricuspid valve regurgitation. 7-There is no pericardial effusion. 8-Right atrial pressure is around 10 mm of mercury. 9-There are no prior echocardiogram studies to compare. Microbiology 07/09/21 15:20 Urine Kidney Urine Culture - Final 07/10/21 09:05 Stool Stool Lactoferrin - Final 07/10/21 09:05 Stool Enteric Pathogens (PCR) - Final 07/10/21 09:05 Stool Parasite Antigen Panel - Final 07/10/21 09:05 Stool Occult Blood (FIT) - Final 07/08/21 21:33 Nose MRSA Culture - Final 07/07/21 22:30 Urine Kidney Bacterial Antigens - Final 07/07/21 22:30 Unknown Source Legionella Urinary Antigen - Final 07/07/21 00:35 Blood Blood Culture - Preliminary NEGATIVE TO DATE 07/07/21 22:30 Blood Blood Culture - Preliminary NEGATIVE TO DATE Vitals: Last Vital Signs Temp 98.1 F 07/11/21 11:19 Pulse 81 07/11/21 11:19 Resp 18 07/11/21 11:19 BP 124/75 07/11/21 11:19 Pulse Ox 92 07/11/21 11:19 Discharge Plan Discharge Patient Disposition: Home Condition: Stable Prescriptions: [place]antoven 3 mg Tablet 6 mg PO DAILY@1400 30 Days Qty: 60 RF: 0 Lasix 20 mg tablet 20 mg PO QAM Qty: 30 RF: 0 potassium chloride 10 mEq capsule, extended release 10 meq PO DAILY Qty: 30 RF: 0 conjugated estrogens 0.625 mg/gram cream 0.3125 mg vaginal DAILY Qty: 30 RF: 0 Continued atorvastatin 10 mg tablet 10 mg PO QAM RF: 0 multivitamin Tablet 1 tab PO DAILY RF: 0 trazodone 50 mg tablet 50 mg PO BEDTIME RF: 0 metoprolol succinate 50 mg tablet extended release 24 hr 150 mg PO DAILY RF: 0 Aspir-81 81 mg Tablet,Delayed Release (Dr/Ec) 81 mg PO BEDTIME RF: 0 Tylenol Extra Strength 500 mg Tablet 500 mg PO Q4H PRN (Reason: Pain) RF: 0 alprazolam 0.25 mg tablet 0.25 mg PO BEDTIME PRN (Reason: Anxiety) RF: 0 diltiazem HCl 120 mg tablet 120 mg PO BID RF: 0 methimazole 5 mg tablet 5 mg PO EVERY OTHER DAY RF: 0 nitrofurantoin monohyd/m-cryst 100 mg capsule 100 mg PO BID RF: 0 Discontinued warfarin 5 mg Tablet 5 mg PO QAM RF: 0 Discharge Orders: Discharge Order (Routine); Ordered 07/11/21 Ordered By: Fred Hartmann Referrals: Oralia Calderon MD [Staff Physician] - 1 week (INR check) Aviva Galeana MD [Physician] - 2 weeks Discharge Diet: Cardiac Discharge Activity: Resume usual activity Patient Instructions: Opioid Safety Activity Restrictions/Additional Instructions: Lasix has been added to your medication list. Take potassium 10 mEq daily. Dose of warfarin has been increased to 6 mg oral daily. Please follow-up with your primary care provider within next 1 week for repeat INR. When you have symptoms of UTI please check urinalysis and urine culture prior to initiation of antibiotics. Please follow-up with your primary trains service conductor as an outpatient within the next 1 week. Please follow-up with product architect as an outpatient for further treatment and management of atrophic vaginitis. Discharge Attestations Time Spent in Discharge Care*: greater than 30 min Specific Discharge Activities: educating patient, educating and/or supporting family/caregiver, discussing with piano case maker/social workers/dc planners, documenting/other paperwork and evaluating patient/reviewing data Status at Discharge: Cognitive status at discharge: cognitively intact , Behavioral status at discharge: cooperative , Functional status at discharge: independent ambulation Overall status at discharge: patient is back to baseline Quality Metrics Clinical Quality Measures During this hospital stay, did patient experience: None Coding Level of Care Code Acute [facility] note Diagnoses Sepsis A41.9 Hypercapnic respiratory failure J96.92 CHF (congestive heart failure) I50.9 Pulmonary edema J81.1 Pleural effusion J90 UTI (urinary tract infection) N39.0 H/O tricuspid valve repair Z98.890 History of mitral valve replacement with bioprosthetic valve Z95.3 Atrial fibrillation I48.91 Warfarin anticoagulation Z79.01 Status cardiac pacemaker Z95.0 S/P CABG (coronary artery bypass graft) Z95.1 HTN (hypertension) I10 Postmenopause atrophic vaginitis N95.2
[2021-07-11] MEDS: warfarin 3 mg Tablet 6 MG PO (13:56)
--- NOTE | 2021-07-15 10:09 | PC.SOCIAL ---
discharge follow up call made, spoke with patient. patient picked up new medications from the pharmacy and she is taking as directed. patient discontinued taking coumadin. patient had follow up appointment with pcp yesterday. pcp doesn't recommend patient having follow up with clinical safety specialist. patient denies any questions or concerns at this time.
== END 2021-07-11 14:15 | disposition home or self-care (01) | DRG 871 ==
LOC: ER 07-08 02:22 → MEDSURG 07-08 05:02
PROVIDERS: Admitting Provider Student in an Organized Health Care Education/Training Program; Emergency Provider Emergency Medicine; Visit Provider Student in an Organized Health Care Education/Training Program
DX: A41.9 Sepsis, unspecified organism (principal); I50.31 Acute diastolic (congestive) heart failure; J96.02 Acute respiratory failure with hypercapnia; N39.0 Urinary tract infection, site not specified; E87.2 Acidosis; Z87.440 Personal history of urinary (tract) infections; I25.10 Atherosclerotic heart disease of native coronary artery without angina pectoris; Z95.1 Presence of aortocoronary bypass graft; I11.0 Hypertensive heart disease with heart failure; Z95.3 Presence of xenogenic heart valve; Z95.0 Presence of cardiac pacemaker; I48.91 Unspecified atrial fibrillation; N95.2 Postmenopausal atrophic vaginitis; I27.20 Pulmonary hypertension, unspecified; Z79.82 Long term (current) use of aspirin
CPT/HCPCS: 36415; 36600; 70450; 71045; 71275; 74177; 80053; 80061; 80162; 81001; 82274; 82803; 83036; 83540; 83550; 83605; 83630; 83735; 83880; 84145; 84443; 84484; 85025; 85378; 85610; 86403; 87040; 87086; 87426; 87449; 87506; 87635; 87641; 93005; 93306; 94640; 94660; 96365; 96367; 96375; 97110; 97161; 99291; J0456; J0696; J1940; J2405; J7030; J7040; J7050; J7626; Q9967

== ENCOUNTER 2021-08-25 12:24 | Outpatient (CLI) | payer MEDICARE, SELFPAY ==
--- NOTE | 2021-08-25 12:34 | XR_ITS ---
WS: [id number] Right knee, 3 views, 08/25/2021 Clinical Data: BURSITIS OF R KNEE/INSTABILITY OF R KNEE Comparison: None. Findings: No fractures or dislocations are seen. There is medial joint compartment narrowing with a small spur of the medial femoral condyle.. The posterior right patella shows irregularity.. There are clips in the posterior soft tissue of the knee. There is vascular calcification of the supe rficial femoral artery and arteries of the trifurcation. XR/XR knee RT 3V* [id number] Impression: Minimal osteoarthritis of the right knee with medial joint compartment narrowin g and posterior patellar irregularity. Kellgren-Mirza Classification: grade 2 (minimal): definite osteophytes and p ossible joint space narrowing
== END 2021-08-25 12:25 | disposition home or self-care (01) ==
PROVIDERS: PCP Family Medicine; Visit Provider Family Medicine
DX: M25.361 Other instability, right knee (principal); M70.51 Other bursitis of knee, right knee; M25.761 Osteophyte, right knee
CPT/HCPCS: 73562

== ENCOUNTER → 2022-09-02 16:36 | Outpatient (BNVA) | payer MEDICARE, SELFPAY | PROVIDERS: PCP Family Medicine; Visit Provider Emergency Medicine | DX: M79.672 Pain in left foot (principal) | CPT/HCPCS: 73630 ==

== ENCOUNTER → 2022-09-03 14:21 | Outpatient (BNVA) | payer MEDICARE, SELFPAY | PROVIDERS: PCP Family Medicine; Visit Provider Podiatrist Foot & Ankle Surgery | DX: S92.335A Nondisplaced fracture of third metatarsal bone, left foot, initial encounter for closed fracture (principal); W19.XXXA Unspecified fall, initial encounter | CPT/HCPCS: 73630 ==

== ENCOUNTER 2022-09-03 15:02 | Outpatient (CLI) | payer MEDICARE, SELFPAY | END 2022-09-03 15:03 | disposition home or self-care (01) | LOC: SPT 15:03 | PROVIDERS: PCP Family Medicine; Visit Provider Podiatrist Foot & Ankle Surgery | DX: Z46.89 Encounter for fitting and adjustment of other specified devices (principal); S92.21 Fracture of cuboid bone; S92.332S Displaced fracture of third metatarsal bone, left foot, sequela; X58.XXXS Exposure to other specified factors, sequela | CPT/HCPCS: 97760; 99214; L4361 ==

== ENCOUNTER 2022-09-07 12:29 | Outpatient (CLI) | payer MEDICARE, SELFPAY ==
--- NOTE | 2022-09-07 12:45 | CT_ITS ---
WS: [id number] CT LEFT FOOT, NONCONTRAST, 3-D. HISTORY: fractures to left foot Technique: All CT scans at [facility] use at least one of these dose optimization techniques: automated exposure control; mA and/or kV adjustment per patient size (includes targeted exams where dose is matched to clinical indication); or iterative reconstruction. DLP: 124.70 mGy.cm COMPARISON: Radiograph 09/03/2022 and 09/02/2022 No fractures are identified by CT. There are no areas of bony displacement. There is cortical thicken ing involving the second metatarsal from a remote fracture. Mild hallux valgus deformity. Interphalan geal joint spaces are diffusely narrowed. No widening of the Lisfranc joint. There is a small amount of soft tissue edema along the lateral foot. No fracture or foreign body. Ent hesopathy at the Achilles tendon. Extensive calcifications in the anterior and posterior tibial arter ies. CT/CT foot LT wo con* [id number] IMPRESSION: 1. No LEFT foot fracture. 2. Extensive peripheral arterial atherosclerosis. 3. Hallux valgus.
== END 2022-09-07 12:30 | disposition home or self-care (01) ==
LOC: RAD 12:30
PROVIDERS: PCP Family Medicine; Visit Provider Podiatrist Foot & Ankle Surgery
DX: S92.902A Unspecified fracture of left foot, initial encounter for closed fracture; X58.XXXA Exposure to other specified factors, initial encounter; M20.12 Hallux valgus (acquired), left foot; I70.209 Unspecified atherosclerosis of native arteries of extremities, unspecified extremity
CPT/HCPCS: 73700

== ENCOUNTER → 2022-09-21 13:35 | Outpatient (BNVA) | payer MEDICARE, SELFPAY | PROVIDERS: PCP Family Medicine; Visit Provider Podiatrist Foot & Ankle Surgery | DX: S92.212D Displaced fracture of cuboid bone of left foot, subsequent encounter for fracture with routine healing (principal); S92.335D Nondisplaced fracture of third metatarsal bone, left foot, subsequent encounter for fracture with routine healing | CPT/HCPCS: 73630; 99214 ==

== ENCOUNTER → 2022-10-14 14:28 | Outpatient (BNVA) | payer MEDICARE, SELFPAY | PROVIDERS: PCP Family Medicine; Visit Provider Podiatrist Foot & Ankle Surgery | DX: S92.335D Nondisplaced fracture of third metatarsal bone, left foot, subsequent encounter for fracture with routine healing (principal); S92.215D Nondisplaced fracture of cuboid bone of left foot, subsequent encounter for fracture with routine healing; X58.XXXD Exposure to other specified factors, subsequent encounter | CPT/HCPCS: 73630; 99214 ==

== ENCOUNTER → 2023-01-13 12:55 | Outpatient (BNVA) | payer MEDICARE, SELFPAY | PROVIDERS: PCP Family Medicine; Visit Provider Podiatrist Foot & Ankle Surgery | DX: I73.9 Peripheral vascular disease, unspecified (principal); L60.3 Nail dystrophy | CPT/HCPCS: 11721 ==

== ENCOUNTER 2023-03-01 15:59 | Observation (INO) | payer MEDICARE, SELFPAY ==
[2023-03-01] VITALS (10 sets, daily range): BP systolic 148–178; BP diastolic 58–91; PULSE 76–96; RESP 16–18; TEMP 36.6–36.7; O2SAT 95–97; BMI 26.5; BMI 25.7
--- NOTE | 2023-03-01 16:20 | ECG_ITS ---
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 Measurements Intervals [place] Rate: 100 P: 0 DC: 0 QRS: -10 QRSD: 146 T: -79 QT: 382 QTc: 493 Interpretive Statements ATRIAL FIBRILLATION WITH RAPID VENTRICULAR RESPONSE WITH ABERRANT CONDUCTION OR VENTRICULAR PREMATURE COMPLEXES LEFT BUNDLE BRANCH BLOCK [120+ ms QRS DURATION, 80+ ms Q/S IN V1/V2, 85+ ms R IN I/aVL/V5/V6] INTERPRETATION BASED ON A DEFAULT AGE OF 40 YEARS Compared to ECG 07/08/2021 04:48:49 Aberrant conduction of supraventricular beat(s) now present Ventricular premature complex(es) now present Left bundle-branch block now present Ventricular-paced complex(es) or rhythm no longer present ST (T wave) deviation no longer present Electronically Signed On 03-01-2023 17:46:24 CDT by Caio Win M.D. [id number]
--- NOTE | 2023-03-01 16:53 | ED_ITS ---
HPI - Neuro Symptoms/Deficit General: Chief Complaint: Neuro Symptoms/Deficit Stated Complaint: stroke like symptoms Time Seen by Provider: 03/01/23 16:43 Source: patient Mode of arrival: ambulatory History of Present Illness: 88-year-old female who presents to the emergency room earlier today she began having right-sided numbness in her arm and her leg facial droop some slurring of her words and weakness. That was around 11 it got better and then began to recur again around 1540. They arrived here at 1559. She states most of her symptoms have resolved she still is a little slurring of her words her sensation is normal. She is on warfarin for history of atrial fibrillation. Onset (ago): hour(s) Time: 15:40 Last Observed Normal: 15:59 Timing confirmed by: family member Location: speech, right face, right arm and left leg Severity: moderate Quality: weak Relieving factors: none Exacerbating factors: none On Anticoagulants: Yes Associated symptoms: Deny chest pain, cough, diaphoresis, fevers/chills, headac he(s), anorexia, malaise, nausea, seizures, short of breath, syncope, tingling, vertigo, vomiting or weakness Review of Systems Const: Denies: fever(s), chills, fatigue, malaise or diaphoresis ENMT: Denies: throat pain, ear or mastoid pain, nasal discharge or nasal congestion Card: Denies: chest pain or syncope Resp: Denies: dyspnea, productive cough or non-productive cough GI: Denies: abdominal pain, nausea or vomiting : Denies: flank pain, difficulty voiding, dysuria, urinary frequency or urinary urgency Skin/Breast: Denies: rash or pruritus Neuro: Reports: numbness in extremities; Denies: headache(s) or vertigo PFS ED PFSH: Medical History ASHD (arteriosclerotic heart disease) Atrial fibrillation HTN (hypertension) Pleural effusion Postmenopause atrophic vaginitis Sick sinus syndrome UTI (urinary tract infection) Warfarin anticoagulation Surgical History H/O tricuspid valve repair History of mitral valve replacement with bioprosthetic valve S/P CABG (coronary artery bypass graft) Status cardiac pacemaker Status post tubal ligation Family History Other Stroke Social History Smoking and tobacco status: never smoked Alcohol intake: never Lives independently: Yes Marital status: / Current occupational status: retired NIH stroke score NIHSS: Level Of Consciousness - 1a: 0 Level Of Consciousness Questions - 1b: Both Correct Level Of Consciousness Commands - 1c: Both Correct Best Gaze - 2: Normal Visual Pichardo - 3: No Visual Loss Facial Palsy - 4: Minor Paralysis Motor Arm Right - 5: No Drift Motor Arm Left - 5: No Drift Motor Leg Right - 6: No Drift Motor Leg Left - 6: No Drift Limb Ataxia - 7: Absent Sensory - 8: Normal Best Language - 9: No Aphasia Dysarthia - 10: Mild/Moderate Dysarthia Extinction And Inattention - 11: 0 Score: Total Score: 2 Physical Exam Const: GENERAL APPEARANCE: cooperative and comfortable ORIENTATION/CONSCIOUSNESS: Yes awake, Yes oriented to person, Yes oriented to place and Yes oriented to time HENMT: COMMON NORMALS: normocephalic, atraumatic and hearing grossly normal bilaterally HEAD & SCALP: normocephalic and atraumatic Resp: COMMON NORMALS: normal respiratory effort, No retractions, No use of accessory muscles and clear to auscultation bilaterally AUSCULTATION: clear to auscultation bilaterally Cardio: COMMON NORMALS: regular rate, regular rhythm and No murmurs present (Cardio) RATE: regular rate RHYTHM: regular rhythm GI: COMMON NORMALS: Soft to palpation and No hepatosplenomegaly present AUSCULTATION: Yes normoactive bowel sounds PALPATION: Yes Soft to palpation, No Tenderness to palpation present (GI), No Guarding due to palpation present (GI) and Yes No hepatosplenomegaly present Extremity: COMMON NORMALS: normal to inspection, capillary refill normal, no clubbing, cyanosis or edema, no calf tenderness and no pedal edema Neuro: SENSORIUM/ORIENTATION: Yes oriented to person, Yes oriented to place and Yes oriented to time Skin: COMMON NORMALS: no rashes or lesions noted GENERAL SKIN EXAM: no rashes or lesions noted Course Vital Signs: Vital signs: Vital Signs Temperature 97.8 F 03/02/23 03:42 Pulse Rate 71 03/02/23 03:42 Respiratory Rate 16 03/02/23 03:42 Blood Pressure 131/68 03/02/23 03:42 Pulse Oximetry 94 03/02/23 03:42 Oxygen Delivery Me thod Room Air 03/02/23 03:42 MDM - Neuro Symptoms/Deficit Medical Decision Making Dr. Block neurologist on-call was in the department seen the patient he recommends with the on and off symptoms throughout the day that the patient be admitted especially given her atrial fibrillation further evaluation to look for source of possible embolism. At this time of presentation she is out of the window for tPA she is excluded also by the fact that she is on Coumadin. She has no significant emboli and does not have and I have NIH to be a candidate for embolectomy. Will admit to the hospitalist services for further evaluation and rehab services. Medical Records I reviewed the patient's medical records. Lab Data I reviewed the patient's lab results. 03/01/23 17:00 03/01/23 17:00 Radiology Impressions Chest X-Ray 03/01/23 17:05 IMPRESSION: No acute findings Head CT 03/01/23 17:05 IMPRESSION: 1. 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 2. Left inferior frontal encephalomalacia indicating old infarct or trauma which has occurred since the previous scan. 3. Stable 18 mm left frontal meningioma. 4. No acute intracranial lesion or injury ASSESSMENT: ASPECTS ([place] Stroke Program Early CT Score) is 10. 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 This does not correspond to stated symptoms. IMPRESSION: 1. No carotid or vertebral artery stenosis. 2. 2.5 cm left lobe thyroid nodule. Recommend nonemergent thyroid ultrasound. COMMENTS: Consistent with the [employer]'s Incidental Findings Committee white paper (J Am Charity Radiol 2015): In patients aged 35 years and older with an incidental thyroid nodule equal to or greater than 1.[address], MRI or extrathyroidal US, further evaluation with dedicated thyroid US is recommended for patients with normal life expectancy and without comorbidities. For smaller nodules without suspicious features, no further evaluation or follow up is recommended. REFERENCES: NASCET CRITERIA. The degree of stenosis in the cervical segment of the internal carotid artery is based on NASCET criteria. Normal is no stenosis. Mild is less than 50% stenosis. Moderate is 50-69% stenosis. Severe is 70% to 99% stenosis. Total occlusion is no detectable patent lumen. ADDENDUM: 03/01/232058 THIS REPORT CONTAINS FINDINGS THAT MAY BE CRITICAL TO PATIENT CARE. The findings were verbally communicated via telephone conference with Dr. Dong 8:57 PM CDT on 03/01/2023. The findings were acknowledged and understood. Laboratory Results WBC 8.1 10^3/uL (4.0-10.0) 03/01/23 17:00 RBC 5.05 10^6/uL (4.1-5.3) 03/01/23 17:00 Hgb 12.3 g/dL (11.5-15.3) 03/01/23 17:00 Hct 40.9 % (37.0-47.0) 03/01/23 17:00 MCV 81.0 fl (81-99) 03/01/23 17:00 MCH 24.4 pg (28.0-34.0) L 03/01/23 17:00 MCHC 30.1 g/dL (30.0-36.0) 03/01/23 17:00 RDW 17.4 % (12.1-15.1) H 03/01/23 17:00 Plt Count 292 10^3/cmm (130-400) 03/01/23 17:00 MPV 10.2 fL (7.4-10.4) 03/01/23 17:00 Neut % (Auto) 62.2 % 03/01/23 17:00 Lymph % (Auto) 27.1 % 03/01/23 17:00 [place] % (Auto) 8.6 % 03/01/23 17:00 Eos % (Auto) 1.1 % 03/01/23 17:00 Baso % (Auto) 0.6 % 03/01/23 17:00 Neut # (Auto) 5.04 10^3/uL (1.8-7.7) 03/01/23 17:00 Lymph # (Auto) 2.2 10^3/uL (0.8-4.8) 03/01/23 17:00 [place] # (Auto) 0.7 10^3/uL (0.2-0.9) 03/01/23 17:00 Eos # (Auto) 0.1 10^3/uL (0.0-0.8) 03/01/23 17:00 Baso # (Auto) 0.1 10^3/uL (0.0-0.1) 03/01/23 17:00 Nucleated RBC % (auto) 0 % 03/01/23 17:00 Nucleated RBCs # 0.0 /100WBC 03/01/23 17:00 PT 25.40 SECONDS (12.1-14.9) H 03/01/23 17:00 INR 2.22 (0.8-1.2) H 03/01/23 17:00 APTT 34.2 SECONDS (23.9-36.7) 03/01/23 17:00 Sodium 140 mmol/L (136-145) 03/01/23 17:00 Potassium 4.1 mmol/L (3.5-5.1) 03/01/23 17:00 Chloride 101 mmol/L (98-107) 03/01/23 17:00 Carbon Dioxide 26 mmol/L (22-29) 03/01/23 17:00 Anion Gap 17.1 (5-19) 03/01/23 17:00 BUN 16 mg/dL (8-23) 03/01/23 17:00 Creatinine 0.8 mg/dL (0.5-0.9) 03/01/23 17:00 GFR Calculation Not Reportable 03/01/23 17:00 Glucose 81 mg/dL (65-115) 03/01/23 17:00 POC Glucose 102 mg/dL (70-110) 03/01/23 18:35 Calculated Osmolality 290 mOsm/kg (285-295) 03/01/23 17:00 Calcium 8.8 mg/dL (8.5-10.5) 03/01/23 17:00 Total Bilirubin 0.3 mg/dL (0.15-1.2) 03/01/23 17:00 AST 30 U/L (0-32) 03/01/23 17:00 ALT 22 U/L (0-33) 03/01/23 17:00 Alkaline Phosphatase 133 U/L (35-105) H 03/01/23 17:00 Total Protein 7.7 g/dL (6.6-8.7) 03/01/23 17:00 Albumin 4.5 g/dL (3.5-5.2) 03/01/23 17:00 Globulin 3.2 g/dL (1.3-4.6) 03/01/23 17:00 Vitamin B12 287 pg/mL (232-1245) 03/01/23 17:00 Urine Color Yellow (Yellow) 03/01/23 18:22 Urine Appearance Clear (CLEAR) 03/01/23 18:22 Urine pH 6 (5-7) 03/01/23 18:22 Ur Specific [place] 1.010 (1.005-1.030) 03/01/23 18:22 Urine Protein Neg (Negative) 03/01/23 18:22 Urine Glucose (UA) Norm (Normal) 03/01/23 18:22 Urine Ketones Negative (Negative) 03/01/23 18:22 Urine Blood Neg (Negative) 03/01/23 18:22 Urine Nitrate Negative (Negative) 03/01/23 18:22 Urine Bilirubin Neg (Negative) 03/01/23 18:22 Urine Urobilinogen Neg mg/dL (Negative) 03/01/23 18:22 Ur Leukocyte Esterase Negative (Negative) 03/01/23 18:22 Urine Opiates Screen Negative ng/mL (Negative) 03/01/23 18:22 Ur Barbiturates Screen Negative ng/mL (Negative) 03/01/23 18:22 Ur Phencyclidine Scrn Negative ng/mL (Negative) 03/01/23 18:22 Ur Amphetamines Screen Negative ng/mL (Negative) 03/01/23 18:22 U Benzodiazepines Scrn Negative ng/mL (Negative) 03/01/23 18:22 Urine Cocaine Screen Negative ng/mL (Negative) 03/01/23 18:22 U Marijuana (THC) Screen Negative ng/mL (Negative) 03/01/23 18:22 Discharge Plan Discharge Patient Disposition: Admitted As Inpatient Admit Provider: Neyda Whalen Clinical Impression: TIA (transient ischemic attack), Peripheral arterial disease, ASHD (arteriosclerotic heart disease) Condition: Stable Coding Level of Care Code 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
--- NOTE | 2023-03-01 17:05 | CTR_ITS ---
PROCEDURE INFORMATION: Exam: CT Head Without Contrast Exam date and time: 03/01/2023 5:07 PM Age: 88 years old Clinical indication: Stroke-like symptoms; Speech disturbance; Additional info: Symptoms of acute stroke TECHNIQUE: Imaging protocol: Computed tomography of the head without contrast. Radiation optimization: All CT scans at this facility use at least one of these dose optimization techniques: automated exposure control; mA and/or kV adjustment per patient size (includes targeted exams where dose is matched to clinical indication); or iterative reconstruction. Other technique: STROKE PROTOCOL was implemented. REPORTING DATA: Count of CT and Cardiac NM exams in prior 12 months: This patient has received [address] and 0 known cardiac nuclear medicine studies in the 12 months prior to the current study. COMPARISON: CT head wo con* [id number] 07/07/2021 11:13 PM RADIATION DOSE METRICS: Total DLP (mGy-cm): 1056 FINDINGS: Brain: There is age-related volume loss. There is mild white matter lucency indicating chronic microvascular disease. Are old basal ganglia lacunar infarcts. There is left inferior frontal encephalomalacia which was not present on the prior scan. No acute infarct. No hemorrhage or extra-axial collection. Series 3, image 36, left frontal extra-axial slightly hyperdense and calcified mass consistent with meningioma. Maximal dimension as seen on series 8, image 30 is 18 mm. No change from prior scan. No intra-axial mass. Cerebral ventricles: No ventriculomegaly. Paranasal sinuses: Visualized sinuses are unremarkable. No fluid levels. Mastoid air cells: Visualized mastoid air cells are well aerated. Bones/joints: Unremarkable. No acute fracture. Soft tissues: Unremarkable. CT/CT head thrombolytic [id number] IMPRESSION: 1. 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 2. Left inferior frontal encephalomalacia indicating old infarct or trauma which has occurred since the previous scan. 3. Stable 18 mm left frontal meningioma. 4. No acute intracranial lesion or injury ASSESSMENT: ASPECTS ([place] Stroke Program Early CT Score) is 10.
--- NOTE | 2023-03-01 17:05 | XRR_ITS ---
PROCEDURE INFORMATION: Exam: XR Chest Exam date and time: 03/01/2023 5:15 PM Age: 88 years old Clinical indication: Other: TIA; Prior surgery; Surgery date: 6+ months; Surgery type: Pacer; Additional info: Tia/cva TECHNIQUE: Imaging protocol: Radiologic exam of the chest. Views: 1 view. COMPARISON: CR XR chest 1V portable [id number] 07/11/2021 8:17 AM FINDINGS: Tubes, catheters and devices: Dual lead pacemaker remains in place. Lungs: Unremarkable. No consolidation. Pleural spaces: Unremarkable. No pleural effusion. No pneumothorax. Heart/Mediastinum: No cardiomegaly Bones/joints: Status post median sternotomy with valve replacement. XR/XR chest 1V portable [id number] IMPRESSION: No acute findings
[2023-03-01 17:21] LABS: Basophils # 0.1 10^3/uL (0.0-0.1); Basophils % 0.6 %; Eosinophils # 0.1 10^3/uL (0.0-0.8); Eosinophils % 1.1 %; Hematocrit 40.9 % (37.0-47.0); Hemoglobin 12.3 g/dL (11.5-15.3); Lymphocytes # 2.2 10^3/uL (0.8-4.8); Lymphocytes % 27.1 %; Mean Corpuscular HGB Conc 30.1 g/dL (30.0-36.0); Mean Corpuscular Hemoglobin 24.4 pg (28.0-34.0); Mean Platelet Volume 10.2 fL (7.4-10.4); Monocytes # 0.7 10^3/uL (0.2-0.9); Monocytes % 8.6 %; Neutrophils # 5.04 10^3/uL (1.8-7.7); Neutrophils % 62.2 %; Nucleated Red Blood Cells % 0 %; Platelet Count 292 10^3/cmm (130-400); Red Blood Count 5.05 10^6/uL (4.1-5.3); Red Cell Distribution Width 17.4 % (12.1-15.1); White Blood Count 8.1 10^3/uL (4.0-10.0)
[2023-03-01 17:35] LABS: INR 2.22 (0.8-1.2)
[2023-03-01 17:36] LABS: Partial Thromboplastin Time 34.2 SECONDS (23.9-36.7)
[2023-03-01 17:42] LABS: Alanine Aminotransferase 22 U/L (0-33); Albumin Level 4.5 g/dL (3.5-5.2); Alkaline Phosphatase 133 U/L (35-105); Anion Gap 17.1 (5-19); Aspartate Amino Transferase 30 U/L (0-32); Blood Urea Nitrogen 16 mg/dL (8-23); Calcium 8.8 mg/dL (8.5-10.5); Carbon Dioxide 26 mmol/L (22-29); Chloride 101 mmol/L (98-107); Globulin 3.2 g/dL (1.3-4.6); Glucose 81 mg/dL (65-115); Osmolality Calculated 290 mOsm/kg (285-295); Potassium 4.1 mmol/L (3.5-5.1); Sodium 140 mmol/L (136-145); Total Bilirubin 0.3 mg/dL (0.15-1.2); Total Protein 7.7 g/dL (6.6-8.7)
--- NOTE | 2023-03-01 17:42 | P.CONIM_ITS ---
Providers/Reason For Consult Consulting Physician/Specialty*: Flaquito Block MD neurology and epilepsy Reason for Consult*: Code stroke ER bed 11 at 5:02 PM Primary Care Provider: Oralia Calderon MD History of Present Illness History of Present Illness Ivet Caruso is a 88 year old female with a history of atrial fibrillation and pacemaker placement treated with Coumadin. The patient also has a history of coronary atherosclerotic heart disease status post coronary artery back past graft x2, macular degeneration with tunnel vision, and history of bilateral cataract surgery. 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 According to the patient, around 11 AM on 03/01/2023 the pa meghan stated that she was awakened and experienced acute onset of right facial drooping and numbness and right arm numbness that lasted for several minutes and resolved. The patient stated that she did seek immediate medical attention since the symptoms resolved. Later this afternoon on 03/01/2023 the patient stated that her son brought her poke salad greens. The patient stated that she cooked the greens. She informed me that she started stirring the pot salad greens because she was going to eat them and she noticed that she was having trouble stirring the greens and she also noticed she was experiencing right facial weakness and numbness and right arm numbness. The patient reports that the symptoms lasted for approximately 5 minutes and resolved. In the emergency room the patient was evaluated by the ER physician. NIH score = 3. Arrived to the emergency room at 5:15 PM following the code stroke that was initiated at 5:02 PM for ER bed 11. The patient was alert and denied any we for pain. Patient also denied any visual difficulty. NIH score = 0 performed by me at the bedside. The patient does have a history of macular degeneration with tunnel vision. According to the patient and her vision has not changed or progressed. I spoke with the patient's family who are just outside the patient's room ER bed 11. The family informed me that the patient complained of decreased vision in the right eye on 02/27/2023. The family had made plans to take the patient to the eye doctor the next day but the patient reported that her right eye vision was back to baseline. Therefore the patient was not seen by the eye doctor. Noncontrast head CT scan performed in the emergency room on 03/01/2023 revealed no acute findings. There was report of old lacunar infarcts with chronic microvascular ischemic changes and old left inferior frontal encephalomalacia suggestive of an old infarction which was not seen on previous scans. There was also reports of a stable 18 mm left frontal meningioma. In view of the patient's NIH score = 3 when she presented to the emergency room now NIH score =0 and the patient is on Coumadin for atrial fibrillation and pacemaker placement,the patient was not a candidate for tPA and no tPA was administered. Past medical history: Atrial fibrillation treated with Coumadin Pacemaker placement Macular degeneration with tunnel vision diagnosed 3 to 4 years ago Bilateral cataract surgery greater than 1 year ago History of stable 18 mm left frontal meningioma History of lacunar infarctions and left inferior lobe infarction with encephalomalacia reported on noncontrast head CT scan 03/01/2023 Home medications: Coumadin (Other medications not listed) Drug allergies: Amiodarone type of reaction not known. Codeine type of reaction unknown. Indomethacin type of reaction unknown. Family history: Remarkable for a mother and father who experienced a stroke and a brother who had heart disease requiring coronary artery bypass graft Habits: None Social history: The patient lives alone but she reports that she has 5 children and one of them checks on her daily. Review of Systems General: Reports: 10 or more systems reviewed and unremarkable except in HPI and below Eyes: Reports: blurry vision Card: Reports: irregular heart rhythm and other (Atrial fibrillation, pacemaker) Musc: Reports: muscle weakness Neuro: Reports: numbness in extremities, weakness in extremities, Slurred speech present and other (Right facial weakness) Medications/Allergies Home Medications Medication Instructions Recorded Confirmed Last Taken Type atorvastatin 10 mg tablet 10 mg PO QAM 01/28/20 01/13/23 Unknown History acetaminophen 500 mg tablet 500 mg PO Q4H PRN Pain 07/08/21 01/13/23 Unknown History (Tylenol Extra Strength) alprazolam 0.25 mg tablet 0.25 mg PO BEDTIME PRN Anxiety 07/08/21 01/13/23 Unknown History aspirin 81 mg tablet,delayed 81 mg PO BEDTIME 07/08/21 01/13/23 Unknown History release diltiazem HCl 120 mg tablet 120 mg PO BID 07/08/21 01/13/23 Unknown History methimazole 5 mg tablet 5 mg PO EVERY OTHER DAY 07/08/21 01/13/23 07/06/21 Hi story multivitamin 1 tab PO DAILY 07/08/21 01/13/23 Unknown History nitrofurantoin 100 mg PO BID 07/08/21 01/13/23 07/07/21 History monohydrate/macrocrystals 100 mg capsule trazodone 50 mg tablet 50 mg PO BEDTIME 07/08/21 01/13/23 Unknown History conjugated estrogens 0.625 mg/gram 0.3125 mg vaginal DAILY #30 grams 07/11/21 01/13/23 Unknown Rx vaginal cream furosemide 20 mg tablet (Lasix) 20 mg PO QAM #30 tabs 07/11/21 01/13/23 Unknown Rx potassium chloride 10 mEq 10 meq PO DAILY #30 caps 07/11/21 01/13/23 Unknown Rx capsule,extended release fluconazole 150 mg tablet 150 mg PO Q3D 2 doses #2 tabs 09/02/22 01/13/23 Unknown Rx (Diflucan) sulfamethoxazole 800 1 tab PO BID 10 days #20 tabs 09/02/22 01/13/23 Unknown Rx mg-trimethoprim 160 mg tablet (Bactrim DS) Cam boot to left #1 ea 09/03/22 01/13/23 Unknown Rx Allergies Allergy/AdvReac Type Severity Reaction Status Date / Time amiodarone Allergy Severe Unknown Verified 01/13/23 13:01 codeine Allergy Severe Unknown Verified 01/13/23 13:01 indomethacin [From Indocin] Allergy Severe Unknown Verified 01/13/23 13:01 PFSH Acute PFSH: Medical History ASHD (arteriosclerotic heart disease) Atrial fibrillation HTN (hypertension) Pleural effusion Postmenopause atrophic vaginitis Sick sinus syndrome UTI (urinary tract infection) Warfarin anticoagulation Surgical History H/O tricuspid valve repair History of mitral valve replacement with bioprosthetic valve S/P CABG (coronary artery bypass graft) Status cardiac pacemaker Status post tubal ligation Family History Other Stroke Social History Smoking and tobacco status: never smoked Alcohol intake: never Lives independently: Yes Marital status: / Current occupational status: retired Vitals/I&O/Wt Last Vital Signs Temp 98.1 F 03/01/23 16:20 Pulse 96 03/01/23 16:20 Resp 16 03/01/23 16:20 BP 178/73 03/01/23 16:20 Pulse Ox 97 03/01/23 16:20 O2 Del Method Room Air 03/01/23 16:20 Weight last 48 hrs Weight 150 lb Physical Exam Narrative: Patient is currently alert and oriented x3. Head atraumatic. Neck supple. There were no obvious carotid bruits. Cranial nerves II through XII intact. Patient does have history of macular degeneration with tunnel vision and history of bilateral cataract surgery. Visual veliz could not be fully assessed since patient has history of macular degeneration with tunnel vision for the past 3 to 4 years. Pupils 3 mm. Pupils equal round and reactive to light and accommodation. Extraocular movements intact. There were no nystagmus. Motor testing 5/5 bilaterally. There was no drift. [id number]-[id number]-tpclqd and awfl-tsfp-kwbc maneuvers were within normal limits without signs of ataxia. Deep tendon reflexes 2+ bilaterally. Plantar responses flexor bilaterally. There was no clonus. Sensory examination was intact to gross modalities. There was no extinction on double sensory stimulation. Throat clear. Lungs clear. Heart irregular rhythm and rate. Extremities were negative for clubbing cyanosis or edema. Data 03/01/23 17:00 03/01/23 17:00 A&P Assessment and plan (1) TIA involving left internal carotid artery: Plan 1.Recurrent left cerebral TIAs manifested as slurred speech, right facial numbness and weakness and right arm numbness and weakness lasting for several minutes, currently stable in the emergency room with NIH score =0 2. Atrial fibrillation treated with Coumadin 3. Coronary atherosclerotic heart disease status post coronary artery bypass graft x2 4. Pacemaker placement 5. Macular degeneration with tunnel vision diagnosed 3 to 4 years ago 6. Bilateral cataract surgery greater than 1 year Plan: 1. Agree with admission for TIAs 2. Recommend cardiac evaluation to assess for any recent cardiac abnormalities and for anticoagulation adjustment/recommendations 3. Antihyperlipidemia medication if no contraindications (i.e. either Lipitor, Zocor, Crestor, etc.) 4. Agree with assessing PT and INR since the patient is on Coumadin (INR 2.2) on 03/01/2023 5. Recommend adding low-dose aspirin 81 mg p.o. every morning first dose now if the patient is not already on aspirin 6. Recommend CT angiogram of head and neck to assess for carotid stenosis as well as intracranial stenosis, if no contraindications 7. We will continue to follow 8. Note: Since patient has a pacemaker, head MRI cannot be obtained Consult Attestations Medical Necessity Statement: The patient was evaluated by neurology for code stroke ER bed 11 Coding Level of Care Code 13903 Diagnoses TIA involving left internal carotid artery G45.1 Time Spent (min) 30
--- NOTE | 2023-03-01 17:46 | ECG_ITS ---
[facility] Test Date: 2023-03-01 Pat Name: Ivet Caruso Department: Room: Gender: Female [employer]: : 1935 Requested By: Pop Marcial Order Number: [id number] Omid MD: Caio Win M.D. Measurements Intervals [place] Rate: 88 P: 0 CT: 0 QRS: -25 QRSD: 146 T: 192 QT: 412 QTc: 501 Interpretive Statements ATRIAL FLUTTER/TACHYCARDIA LEFT BUNDLE BRANCH BLOCK [120+ ms QRS DURATION, 80+ ms Q/S IN V1/V2, 85+ ms R IN I/aVL/V5/V6] Compared to ECG 03/01/2023 16:18:36 Atrial fibrillation no longer present Aberrant conduction of supraventricular beat(s) no longer present Ventricular premature complex(es) no longer present Electronically Signed On 03-02-2023 17:50:47 CDT by Caio Win M.D. [id number]
[2023-03-01] MEDS: dilTIAZem 5 mg/mL SDV 5 mL IVP (18:32)
[2023-03-01 18:33] LABS: Add Urine Microscopic? NO; Charge for UA Resulting for Rev
[2023-03-01 18:38] LABS: Bilirubin Urine Neg (Negative); Blood Urine Neg (Negative); Glucose Urine UA Norm (Normal); Ketones Urine Negative (Negative); Leukocyte Esterase Urine Negative (Negative); Nitrate Urine Negative (Negative); Protein Urine Neg (Negative); Urine Appearance Clear (CLEAR); Urine Color Yellow (Yellow); Urobilinogen Urine Neg (Negative); pH Urine 6 (5-7)
[2023-03-01 18:43] LABS: Glucose Point of Care 102 mg/dL (70-110)
[2023-03-01 18:48] LABS: Amphetamines Screen Urine Negative (Negative); Barbiturates Screen Urine Negative (Negative); Benzodiazepines Screen Urine Negative (Negative); Cocaine Screen Urine Negative (Negative); Opiate Screen Urine Negative (Negative); PCP Screen Urine Negative (Negative); THC Screen Urine Negative (Negative)
--- NOTE | 2023-03-01 19:21 | PM.HP ---
Providers/Chief Complaint Primary Care Provider: Oralia Calderon MD Chief Complaint: stroke like symptoms History of Present Illness Ivet Caruso is a 88 year old female who carries history of macular degeneration, tunnel vision, A-fib RVR chronic anticoagulation with Coumadin, presented today for chief complaint of recurrent facial droop right arm numbness. Patient is stating that she had 3 episodes 1 around 11 AM to 11:30 AM when she noticed right-sided facial droop and right hand weakness with numbness which only lasted for several minutes and improved, then she had another episode at 3 PM and third episode around 5 in the ER when code stroke was called, NIH was 0 on arrival, she is on Coumadin not a tPA candidate, symptoms resolved, she does have a pacemaker, heart rate has been consistently above 130s I have given her 1 dose of Cardizem 5 mg IV push, spoke with neurologist who recommended CTA head and neck, CT head unremarkable. She is hypertensive and tachycardic A-fib RVR Not sure whether she will go for MRI because of her pacemaker She is being admitted to hospital service for further stroke work-up/TIA work-up Review of Systems Const: Denies: fever(s) Eyes: Denies: change in vision ENMT: Denies: throat pain Card: Denies: chest pain Resp: Denies: dyspnea GI: Denies: abdominal pain : Denies: flank pain Musc: Denies: neck pain Skin/Breast: Denies: rash Neuro: Denies: headache(s) Psych: Reports: anxiety Endo: Denies: polyuria Deric/Lymph: Denies: easy bruising Medications/Allergies Home Medications Medication Instructions Recorded Confirmed Last Taken Type atorvastatin 10 mg tablet 10 mg PO QAM 01/28/20 01/13/23 Unknown History acetaminophen 500 mg tablet 500 mg PO Q4H PRN Pain 07/08/21 01/13/23 Unknown History (Tylenol Extra Strength) alprazolam 0.25 mg tablet 0.25 mg PO BEDTIME PRN Anxiety 07/08/21 01/13/23 Unknown History aspirin 81 mg tablet,delayed 81 mg PO BEDTIME 07/08/21 01/13/23 Unknown History release diltiazem HCl 120 mg tablet 120 mg PO BID 07/08/21 01/13/23 Unknown History methimazole 5 mg tablet 5 mg PO EVERY OTHER DAY 07/08/21 01/13/23 07/06/21 History multivitamin 1 tab PO DAILY 07/08/21 01/13/23 Unknown History nitrofurantoin 100 mg PO BID 07/08/21 01/13/23 07/07/21 History monohydrate/macrocrystals 100 mg capsule trazodone 50 mg tablet 50 mg PO BEDTIME 07/08/21 01/13/23 Unknown History conjugated estrogens 0.625 mg/gram 0.3125 mg vaginal DAILY #30 grams 07/11/21 01/13/23 Unknown Rx vaginal cream furosemide 20 mg tablet (Lasix) 20 mg PO QAM #30 tabs 07/11/21 01/13/23 Unknown Rx potassium chloride 10 mEq 10 meq PO DAILY #30 caps 07/11/21 01/13/23 Unknown Rx capsule,extended release fluconazole 150 mg tablet 150 mg PO Q3D 2 doses #2 tabs 09/02/22 01/13/23 Unknown Rx (Diflucan) sulfamethoxazole 800 1 tab PO BID 10 days #20 tabs 09/02/22 01/13/23 Unknown Rx mg-trimethoprim 160 mg tablet (Bactrim DS) Cam boot to left #1 ea 09/03/22 01/13/23 Unknown Rx Allergies Allergy/AdvReac Type Severity Reaction Status Date / Time amiodarone Allergy Severe Unknown Verified 01/13/23 13:01 codeine Allergy Severe Unknown Verified 01/13/23 13:01 indomethacin [From Indocin] Allergy Severe Unknown Verified 01/13/23 13:01 PFSH Acute PFSH: Medical History ASHD (arteriosclerotic heart disease) Atrial fibrillation HTN (hypertension) Pleural effusion Postmenopause atrophic vaginitis Sick sinus syndrome UTI (urinary tract infection) Warfarin anticoagulation Surgical History H/O tricuspid valve repair History of mitral valve replacement with bioprosthetic valve S/P CABG (coronary artery bypass graft) Status cardiac pacemaker Status post tubal ligation Family History Other Stroke Social History Smoking and tobacco status: never smoked Alcohol intake: never Lives independently: Yes Marital status: / Current occupational status: retired Vitals/I&O/Wt Last Vital Signs Temp 98.1 F 03/01/23 16:20 Pulse 88 03/01/23 19:10 Resp 16 03/01/23 16:20 BP 153/88 03/01/23 19:10 Pulse Ox 95 03/01/23 19:10 O2 Del Method Room Air 03/01/23 19:10 Weight last 48 hrs Weight 68.039 kg Physical Exam Narrative: NIH 0 No arm weakness or facial droop No slurring of speech S1, S2 Abdomen soft Currently on room air Hypertension A-fib RVR Pleasant cooperative GCS 15 Family is at the bedside Data 03/01/23 17:00 03/01/23 17:00 A&P Assessment and plan (1) TIA involving left internal carotid artery: (2) Peripheral arterial disease: (3) Postmenopause atrophic vaginitis: (4) CHF (congestive heart failure): (5) Sick sinus syndrome: (6) ASHD (arteriosclerotic heart disease): Plan TIA Patient experiencing symptoms on the same side Neurologist recommended CT head and neck to rule out ischemic etiology For A-fib RVR I will give her Cardizem Patient is already anticoagulated with Coumadin and aspirin Which we will continue I will add atorvastatin Requested CTA head and neck We will request PT NIH 0 Goals of care discussed with the patient and the family, she is DNR/DNI I will let her have diet there is no slurring of speech PT/OT/ST for TIA work-up Pacemaker interrogation Patient had battery replaced last year For her hypertension optimize antihypertensive regimen however allow permissive hypertension Spoke with the ER physician, neurologist Spoke with the family who is at the bedside Goals of care discussed at the time of admission as well We will do frequent neurochecks overnight Attestations Medical Necessity Statement*: Anticipating discharge within 48 hours work-up of TIA Diagnoses TIA involving left internal carotid artery G45.1 Peripheral arterial disease I73.9 Postmenopause atrophic vaginitis N95.2 CHF (congestive heart failure) I50.9 Sick sinus syndrome I49.5 ASHD (arteriosclerotic heart disease) I25.10
--- NOTE | 2023-03-01 19:23 | CTR_ITS ---
PROCEDURE INFORMATION: Exam: CTA Head With Contrast, Arteriography Exam date and time: 03/01/2023 7:38 PM Age: 88 years old Clinical indication: Prior surgery; Surgery date: 6+ months; Surgery type: Cabg. Pacer. Mitral/tricuspid; Patient HX: C/O RT sided weakness/numbness with RT facial droop; Additional info: CVA TECHNIQUE: Imaging protocol: Computed tomographic angiography of the head with contrast. Exam focused on the arteries. 3D rendering (Not supervised by radiologist): MIP and/or 3D reconstructed images were created by the technologist. Radiation optimization: All CT scans at this facility use at least one of these dose optimization techniques: automated exposure control; mA and/or kV adjustment per patient size (includes targeted exams where dose is matched to clinical indication); or iterative reconstruction. Contrast material: OMNI 350; Contrast volume: 100 ml; Contrast route: INTRAVENOUS (IV); REPORTING DATA: Count of CT and Cardiac NM exams in prior 12 months: This patient has received [address] and 0 known cardiac nuclear medicine studies in the 12 months prior to the current study. COMPARISON: CT head thrombolytic [id number] 03/01/2023 5:07 PM RADIATION DOSE METRICS: Total DLP (mGy-cm): 1001 FINDINGS: ANTERIOR CIRCULATION: Right internal carotid artery: There is calcified plaque in the right carotid siphon without stenosis. No aneurysm. Right middle cerebral artery: Series 8, images 281 to 283 demonstrate occlusion of a distal right MCA M3 branch in the right sylvian fissure. This is also seen on series 20 images 66 68 Right anterior cerebral artery: No occlusion or significant stenosis. No aneurysm. Left internal carotid artery: There is calcified plaque in the left carotid siphon without stenosis. No aneurysm. Left middle cerebral artery: No occlusion or significant stenosis. No aneurysm. Left anterior cerebral artery: No occlusion or significant stenosis. No aneurysm. POSTERIOR CIRCULATION: Right vertebral artery: There is calcified plaque in the intracranial V4 segment of the right vertebral artery with moderate stenosis. Left vertebral artery: There is calcified plaque in the intracranial V4 segment of the left vertebral artery with moderate stenosis. Basilar artery: No occlusion or significant stenosis. No aneurysm. Right posterior cerebral artery: No occlusion or significant stenosis. No aneurysm. Left posterior cerebral artery: No occlusion or significant stenosis. No aneurysm. Brain: There is chronic microvascular disease with old basal ganglia lacunar infarcts. Old left inferior frontal cortical infarct. No acute infarct. No hemorrhage or extra-axial collection. There is early phase enhancement of left frontal meningioma. Maximal dimension is 18 mm. Cerebral ventricles: There is no hydrocephalus. Bones/joints: Unremarkable. No acute fracture. Soft tissues: Unremarkable. PROCEDURE INFORMATION: Exam: CTA Neck With Contrast Exam date and time: 03/01/2023 7:38 PM Age: 88 years old Clinical indication: Prior surgery; Surgery date: 6+ months; Surgery type: Cabg. Pacer. Mitral/tricuspid; Patient HX: C/O RT sided weakness/numbness with RT facial droop; Additional info: CVA TECHNIQUE: Imaging protocol: Computed tomographic angiography of the neck with contrast. 3D rendering (Not supervised by radiologist): MIP and/or 3D reconstructed images were created by the technologist. Radiation optimization: All CT scans at this facility use at least one of these dose optimization techniques: automated exposure control; mA and/or kV adjustment per patient size (includes targeted exams where dose is matched to clinical indication); or iterative reconstruction. Contrast material: OMNI 350; Contrast volume: 100 ml; Contrast route: INTRAVENOUS (IV); REPORTING DATA: Count of CT and Cardiac NM exams in prior 12 months: This patient has received [address] and 0 known cardiac nuclear medicine studies in the 12 months prior to the current study. COMPARISON: CT cervical spin wo con* [id number] 07/25/2017 1:58 PM RADIATION DOSE METRICS: Total DLP (mGy-cm): 1001 FINDINGS: Tubes, catheters and devices: There is a pacemaker in the left anterior chest wall. Right common carotid artery: No stenosis. No dissection or occlusion. Right internal carotid artery: There is calcified plaque in the proximal right internal carotid artery. No stenosis. Right external carotid artery: No occlusion or stenosis of the origin. Left common carotid artery: No stenosis. No dissection or occlusion. Left internal carotid artery: There is calcified plaque in the proximal left internal carotid artery. No stenosis. Left external carotid artery: No occlusion or stenosis of the origin. Right vertebral artery: No stenosis. No dissection or occlusion. Left vertebral artery: No stenosis. No dissection or occlusion. Thyroid: There is a 2.5 cm left lobe thyroid mass. Soft tissues: Normal. No significant soft tissue swelling. Bones/joints: C5-C6 and C6-C7 spondylosis and disc space narrowing. 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 This does not correspond to stated symptoms. IMPRESSION: 1. No carotid or vertebral artery stenosis. 2. 2.5 cm left lobe thyroid nodule. Recommend nonemergent thyroid ultrasound. COMMENTS: Consistent with the [employer]'s Incidental Findings Committee white paper (J Am [employer]ity Radiol 2015): In patients aged 35 years and older with an incidental thyroid nodule equal to or greater than 1.[address], MRI or extrathyroidal US, further evaluation with dedicated thyroid US is recommended for patients with normal life expectancy and without comorbidities. For smaller nodules without suspicious features, no further evaluation or follow up is recommended. REFERENCES: NASCET CRITERIA. The degree of stenosis in the cervical segment of the internal carotid artery is based on NASCET criteria. Normal is no stenosis. Mild is less than 50% stenosis. Moderate is 50-69% stenosis. Severe is 70% to 99% stenosis. Total occlusion is no detectable patent lumen.
[2023-03-01] MEDS: iohexol 350 mg/mL 500 mL Btl (per mL) IV (19:47)
[2023-03-01 20:56] LABS: Glucose Point of Care 96 mg/dL (70-110)
[2023-03-01] MEDS: aspirin 81 mg EC Tablet PO (21:10)
--- NOTE | 2023-03-01 21:16 | PM.MISC ---
Miscellaneous Note Purpose of Documentation: called by [facility] to report CTA head findings. She has a right MCA m3 occlusion which does not correlate with her symptoms. Findings discussed with neurologist Dr. Block - given asymptomatic occlusion, continue medical management with Asa 81 and Coumadin as already ordered.
[2023-03-01 21:22] LABS: Vitamin B12 287 pg/mL (232-1245)
[2023-03-02] VITALS: BP 131/68; PULSE 72; RESP 15; TEMP 36.7; O2SAT 93
[2023-03-02] MEDS: efferdent effervescent 1 EACH DENTAL (00:19)
[2023-03-02 03:42] VITALS: BP 131/68; PULSE 71; RESP 16; TEMP 36.6; O2SAT 94
[2023-03-02 05:13] LABS: INR 2.53 (0.8-1.2)
[2023-03-02 05:14] LABS: Magnesium 2.9 mg/dL (1.7-2.3)
--- NOTE | 2023-03-02 07:38 | P.PN_ITS ---
Subjective Subjective: History of Present Illness Ivet Caruso is a 88 year old female with a history of atrial fibrillation and pacemaker placement treated with Coumadin.? The patient also has a history of coronary atherosclerotic heart disease status post coronary artery back past graft x2, macular degeneration with tunnel vision, and history of bilateral cataract surgery.? 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 According to the patient, around 11 AM on 03/01/2023 the patient stated that she was awake and experienced acute onset of right facial drooping and numbness and right arm numbness that lasted for several minutes and resolved.? The patient stated that she did seek immediate medical attention since the symptoms resolved.? Later in the afternoon on 03/01/2023 the patient stated that her son brought her poke salad greens.? The patient stated that she cooked the greens.? She informed me that she started stirring the poke salad gre ens because she was going to eat them and she noticed that she was having trouble stirring the greens in the pot and she also noticed she was experiencing right facial weakness and numbness and right arm numbness.? The patient reports that the symptoms lasted for approximately 5 minutes and resolved.? In the emergency room the patient was evaluated by the ER physician.? NIH score = 3.? I arrived at the emergency room at 5:15 PM following the code stroke that was initiated at 5:02 PM for ER bed 11.? The patient was alert and denied any weakness or pain.? Patient also denied any visual difficulty.? NIH score = 0 performed by me at the bedside.? The patient does have a history of macular degeneration with tunnel vision diagnosed 3 to 4 years ago.? According to the patient her vision has not changed or progressed.? I spoke with the patient's family who were just outside the patient's room ER bed 11.? The family informed me that the patient complained of decreased vision in the right eye on 02/27/2023.? The family had made plans to take the patient to the eye doctor the next day but the patient reported that her right eye vision was back to baseline.? Therefore the patient was not seen by the eye doctor.? Noncontrast head CT scan performed in the emergency room on 03/01/2023 revealed no acute findings.? There was report of old lacunar infarcts with chronic microvascular ischemic changes and old left inferior frontal encephalomalacia suggestive of an old infarction which was not seen on previous scans.? There was also reports of a stable 18 mm left frontal meningioma.? In view of the patient's NIH score = 3 when she presented to the emergency room and NIH score =0 on repeat examination performed by me, and the patient is on Coumadin for atrial fibrillation with an INR =2.2, the patient was not a candidate for tPA and no tPA was administered. The patient underwent a CT angiogram on 03/01/2023 which revealed: ANTERIOR CIRCULATION: Right internal carotid artery: There is calcified plaque in the right carotid siphon without stenosis. No aneurysm. Right middle cerebral artery: Series 8, images 281 to 283 demonstrate occlusion of a distal right MCA M3 branch in the right sylvian fissure. This is also seen on series 20 images 66 68 Right anterior cerebral artery: No occlusion or significant stenosis. No aneurysm.? Past medical history: Atrial fibrillation treated with Coumadin Pacemaker placement Macular degeneration with tunnel vision diagnosed 3 to 4 years ago Bilateral cataract surgery greater than 1 year ago History of stable 18 mm left frontal meningioma History of lacunar infarctions and left inferior lobe infarction with encephalomalacia reported on noncontrast head CT scan 03/01/2023 Home medications: Coumadin (Other medications not listed) Drug allergies: ?Amiodarone type of reaction not known. ?Codeine type of reaction unknown. Indomethacin type of reaction unknown. Family history: Remarkable for a mother and father who experienced a stroke and a brother who had heart disease requiring coronary artery bypass graft Habits: None Social history: The patient lives alone but she reports that she has 5 children and one of them checks on her daily. Review of systems: The patient denied headaches, neck pain facial weakness or numbness or speech difficulty or any further TIA episodes. She continues to report history of chronic macular degeneration with tunnel vision for the past 3 to 4 years. Patient denies swallowing difficulty, chest pain, shortness of breath, abdominal pain, extremity pain or extremity weakness or numbness Vitals/I&O/Wt Last Vital Signs Temp 97.8 F 03/02/23 03:42 Pulse 71 03/02/23 03:42 Resp 16 03/02/23 03:42 BP 131/68 03/02/23 03:42 Pulse Ox 94 03/02/23 03:42 O2 Del Method Room Air 03/02/23 03:42 Weight last 48 hrs Weight 150 lb Weight 150 lb Physical Exam Narrative: Patient is currently alert and oriented x3.? Head atraumatic.? Neck supple.? There were no obvious carotid bruits.? Cranial nerves II through XII intact.? Patient does have history of macular degeneration with tunnel vision and history of bilateral cataract surgery.? Visual veliz could not be fully assessed since patient has history of macular degeneration with tunnel vision for the past 3 to 4 years.? Pupils 3 mm.? Pupils equal round and reactive to light and accommodation.? Extraocular movements intact.? There were no nystagmus.? Motor testing 5/5 bilaterally.? There was no drift.? [id number]-elwu-dnjkoq and dudi-xdvu-myzx maneuvers were within normal limits without signs of ataxia.? Deep tendon reflexes 2+ bilaterally.? Plantar responses flexor bilaterally.? There was no clonus.? Sensory examination was intact to gross modalities.? There was no extinction on double sensory stimulation.? Throat clear.? Lungs clear.? Heart irregular rhythm and rate.? Extremities were negative for clubbing cyanos is or edema. Data 03/01/23 17:00 03/01/23 17:00 A&P Assessment and plan (1) TIA involving left internal carotid artery: (2) Cerebrovascular disease: Plan Assessment: 1.Recurrent left cerebral TIAs manifested as slurred speech, right facial numbness and weakness and right arm numbness and weakness lasting for several minutes, currently stable in the emergency room with NIH score =0 1a. Distal right MCA M3 branch occlusion in the right sylvian fissure, asymptomatic (on CT angiogram performed on 03/01/2023) 2.? Atrial fibrillation treated with Coumadin 3.? Coronary atherosclerotic heart disease status post coronary artery bypass graft x2 4.? Pacemaker placement 5.? Macular degeneration with tunnel vision diagnosed 3 to 4 years ago 6.? Bilateral cataract surgery greater than 1 year Plan: 1.? Agree with current treatment 2.? Recommend cardiac evaluation to assess for any recent cardiac abnormalities and for anticoagulation adjustment/recommendations 3.? Antihyperlipidemia medication if no contraindications (i.e. either Lipitor, Zocor, Crestor, etc.) 4.? Agree with assessing PT and INR since the patient is on Coumadin (INR 2.2) on 03/01/2023 5.? Recommend adding low-dose aspirin 81 mg p.o. every morning first dose now if the patient is not already on aspirin 6.??We will continue to follow 7.? Note: Since patient has a pacemaker, head MRI was not performed. Attestations Medical Necessity Statement*: Patient was evaluated by neurology for code stroke on 03/01/2023 manifested as left cerebral TIAs Coding Level of Care Code 22833 Diagnoses TIA involving left internal carotid artery G45.1 Cerebrovascular disease I67.9
[2023-03-02 07:44] VITALS: PULSE 76; RESP 16; O2SAT 95
[2023-03-02 08:13] VITALS: BP 160/67; PULSE 73; RESP 20; TEMP 36.7; O2SAT 95
[2023-03-02] MEDS: methIMAzole 5 MG Tablet PO (08:27)
[2023-03-02] MEDS: atorvastatin 40 mg Tablet PO (08:27)
[2023-03-02] MEDS: dilTIAZem ER (24HR) 120 mg Capsule PO (08:27)
--- NOTE | 2023-03-02 11:03 | PC.NURSE ---
saline flush to IV access to right hand three mls to right hand patient tolerated well
--- NOTE | 2023-03-02 11:59 | P.DS_ITS ---
Discharge Providers Date of Admission: 03/01/23 20:08 Date of Discharge: March 02, 2023 Attending Provider at Admission: Neyda Whalen MD Attending Provider at Discharge: Neyda Whalen MD Primary Care Provider: Oralia Calderon MD Diagnoses at Discharge Discharge Diagnosis (1) TIA involving left internal carotid artery: Status: Acute (2) Cerebrovascular disease: Status: Acute Reason for Visit Reason for Visit: stroke like symptoms Hospital Course Hospital Course 88-year female who was evaluated by neurologist when code stroke was called on admission, she had 3 episodes when she experienced right arm weakness and numbness, right-sided facial droop, her symptoms resolved spontaneously all 3 times, for her TIA she was admitted for further work up, CTAhead and neck showed occlusion of distal right MCA M3 branch which does not correlate with her symptoms, she remained hemodynamically stable, During hospitalization patient did well. no recurrence of symptoms, she has been evaluated by neurologist multiple times during hospitalization, we have asked patient for risk factor modification & to continue aspirin, atorvastatin along her Coumadin which she takes for A-fib, patient does not show any signs of slurring of speech, my plan is to discharge her today after PT OT and ST evaluation. Family meeting conducted, multiple family members were present at the bedside. EKG showing paced rhythm. Echo report is pending at the time of discharge. Normal CBC and BMP. Patient is in good spirits. Please note in the ER her heart rate was around 140s for which she required 1 push of 5 mg of Cardizem which improved her blood pressure and heart rate. No recurrence of A-fib RVR overnight. Physical Exam Narrative: NIH 0 Nonfocal neuro exam Euvolemic Abdomen soft Awake and alert Currently doing well on room air Discharge Data Studies Completed and Pending Completed Studies During Hospitalization Category Date Time Status CT head thrombolytic [id number] Stat Cat Scan 03/01/23 17:05 Completed CTA head neck [CT angio headneck* [id number]] Stat Cat Scan 03/01/23 19:23 Completed XR chest 1V portable [id number] Stat Exams 03/01/23 17:05 Completed Pending at discharge Category Date Time Status CV. echo complete* [id number] Routine Ultrasound 03/02/23 20:29 Taken Radiology Impressions Chest X-Ray 03/01/23 17:05 IMPRESSION: No acute findings Head CT 03/01/23 17:05 IMPRESSION: 1. 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 2. Left inferior frontal encephalomalacia indicating old infarct or trauma which has occurred since the previous scan. 3. Stable 18 mm left frontal meningioma. 4. No acute intracranial lesion or injury ASSESSMENT: ASPECTS ([place] Stroke Program Early CT Score) is 10. 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 This does not correspond to stated symptoms. IMPRESSION: 1. No carotid or vertebral artery stenosis. 2. 2.5 cm left lobe thyroid nodule. Recommend nonemergent thyroid ultrasound. COMMENTS: Consistent with the [employer]'s Incidental Findings Committee white paper ([employer]iol 2015): In patients aged 35 years and older with an incidental thyroid nodule equal to or greater than 1.[address], MRI or extrathyroidal US, further evaluation with dedicated thyroid US is recommended for patients with normal life expectancy and without comorbidities. For smaller nodules without suspicious features, no further evaluation or follow up is recommended. REFERENCES: NASCET CRITERIA. The degree of stenosis in the cervical segment of the internal carotid artery is based on NASCET criteria. Normal is no stenosis. Mild is less than 50% stenosis. Moderate is 50-69% stenosis. Severe is 70% to 99% stenosis. Total occlusion is no detectable patent lumen. ADDENDUM: 03/01/232058 THIS REPORT CONTAINS FINDINGS THAT MAY BE CRITICAL TO PATIENT CARE. The findings were verbally communicated via telephone conference with Dr. Dong 8:57 PM CDT on 03/01/2023. The findings were acknowledged and understood. Laboratory Results WBC 8.1 10^3/uL (4.0-10.0) 03/01/23 17:00 RBC 5.05 10^6/uL (4.1-5.3) 03/01/23 17:00 Hgb 12.3 g/dL (11.5-15.3) 03/01/23 17:00 Hct 40.9 % (37.0-47.0) 03/01/23 17:00 MCV 81.0 fl (81-99) 03/01/23 17:00 MCH 24.4 pg (28.0-34.0) L 03/01/23 17:00 MCHC 30.1 g/dL (30.0-36.0) 03/01/23 17:00 RDW 17.4 % (12.1-15.1) H 03/01/23 17:00 Plt Count 292 10^3/cmm (130-400) 03/01/23 17:00 MPV 10.2 fL (7.4-10.4) 03/01/23 17:00 Neut % (Auto) 62.2 % 03/01/23 17:00 Lymph % (Auto) 27.1 % 03/01/23 17:00 [place] % (Auto) 8.6 % 03/01/23 17:00 Eos % (Auto) 1.1 % 03/01/23 17:00 Baso % (Auto) 0.6 % 03/01/23 17:00 Neut # (Auto) 5.04 10^3/uL (1.8-7.7) 03/01/23 17:00 Lymph # (Auto) 2.2 10^3/uL (0.8-4.8) 03/01/23 17:00 [place] # (Auto) 0.7 10^3/uL (0.2-0.9) 03/01/23 17:00 Eos # (Auto) 0.1 10^3/uL (0.0-0.8) 03/01/23 17:00 Baso # (Auto) 0.1 10^3/uL (0.0-0.1) 03/01/23 17:00 Nucleated RBC % (auto) 0 % 03/01/23 17:00 Nucleated RBCs # 0.0 /100WBC 03/01/23 17:00 PT 28.20 SECONDS (12.1-14.9) H 03/02/23 04:03 INR 2.53 (0.8-1.2) H 03/02/23 04:03 APTT 34.2 SECONDS (23.9-36.7) 03/01/23 17:00 Sodium 140 mmol/L (136-145) 03/01/23 17:00 Potassium 4.1 mmol/L (3.5-5.1) 03/01/23 17:00 Chloride 101 mmol/L (98-107) 03/01/23 17:00 Carbon Dioxide 26 mmol/L (22-29) 03/01/23 17:00 Anion Gap 17.1 (5-19) 03/01/23 17:00 BUN 16 mg/dL (8-23) 03/01/23 17:00 Creatinine 0.8 mg/dL (0.5-0.9) 03/01/23 17:00 GFR Calculation Not Reportable 03/01/23 17:00 Glucose 81 mg/dL (65-115) 03/01/23 17:00 POC Glucose 96 mg/dL (70-110) 03/01/23 20:54 Calculated Osmolality 290 mOsm/kg (285-295) 03/01/23 17:00 Calcium 8.8 mg/dL (8.5-10.5) 03/01/23 17:00 Magnesium 2.9 mg/dL (1.7-2.3) H 03/02/23 04:03 Total Bilirubin 0.3 mg/dL (0.15-1.2) 03/01/23 17:00 AST 30 U/L (0-32) 03/01/23 17:00 ALT 22 U/L (0-33) 03/01/23 17:00 Alkaline Phosphatase 133 U/L (35-105) H 03/01/23 17:00 Total Protein 7.7 g/dL (6.6-8.7) 03/01/23 17:00 Albumin 4.5 g/dL (3.5-5.2) 03/01/23 17:00 Globulin 3.2 g/dL (1.3-4.6) 03/01/23 17:00 Vitamin B12 287 pg/mL (232-1245) 03/01/23 17:00 Urine Color Yellow (Yellow) 03/01/23 18:22 Urine Appearance Clear (CLEAR) 03/01/23 18:22 Urine pH 6 (5-7) 03/01/23 18:22 Ur Specific [place] 1.010 (1.005-1.030) 03/01/23 18:22 Urine Protein Neg (Negative) 03/01/23 18:22 Urine Glucose (UA) Norm (Normal) 03/01/23 18:22 Urine Ketones Negative (Negative) 03/01/23 18:22 Urine Blood Neg (Negative) 03/01/23 18:22 Urine Nitrate Negative (Negative) 03/01/23 18:22 Urine Bilirubin Neg (Negative) 03/01/23 18:22 Urine Urobilinogen Neg mg/dL (Negative) 03/01/23 18:22 Ur Leukocyte Esterase Negative (Negative) 03/01/23 18:22 Urine Opiates Screen Negative ng/mL (Negative) 03/01/23 18:22 Ur Barbiturates Screen Negative ng/mL (Negative) 03/01/23 18:22 Ur Phencyclidine Scrn Negative ng/mL (Negative) 03/01/23 18:22 Ur Amphetamines Screen Negative ng/mL (Negative) 03/01/23 18:22 U Benzodiazepines Scrn Negative ng/mL (Negative) 03/01/23 18:22 Urine Cocaine Screen Negative ng/mL (Negative) 03/01/23 18:22 U Marijuana (THC) Screen Negative ng/mL (Negative) 03/01/23 18:22 Vitals Last Vital Signs Temp 98.1 F 03/02/23 08:13 Pulse 73 03/02/23 08:13 Resp 20 H 03/02/23 08:13 BP 160/67 03/02/23 08:13 Pulse Ox 95 03/02/23 08:13 O2 Del Method Room Air 03/02/23 08:13 Discharge Plan Discharge Patient Disposition: Home Condition: Stable Prescriptions: Continued (DME) Cam boot to left See Rx Instructions .Route .MEDSUPPLY Qty: 1 0RF Rx Instructions: As directed multivitamin Tablet 1 tab PO DAILY trazodone 50 mg tablet 50 mg PO BEDTIME aspirin 81 mg Tablet,Delayed Release (Dr/Ec) 81 mg PO BEDTIME acetaminophen [Tylenol Extra Strength] 500 mg Tablet 500 mg PO Q4H PRN (Reason: Pain) alprazolam 0.25 mg tablet 0.25 mg PO BEDTIME PRN (Reason: Anxiety) diltiazem HCl 120 mg tablet 120 mg PO BID methimazole 5 mg tablet 5 mg PO EVERY OTHER DAY nitrofurantoin monohyd/m-cryst 100 mg capsule 100 mg PO BID conjugated estrogens 0.625 mg/gram cream 0.3125 mg vaginal DAILY Qty: 30 0RF Rx Instructions: off 1 week; repeat cycle warfarin 5 mg tablet See Rx Instructions .ROUTE .COMPLEX Rx Instructions: 5 mg po daily on TUESDAY, TUESDAY,TUESDAY,TUESDAY AND TUESDAY - 2.5 MG ON TUESDAY AND TUESDAY Changed atorvastatin 10 mg tablet 20 mg PO QAM Qty: 60 2RF Held furosemide [Lasix] 20 mg tablet 20 mg PO QAM Qty: 30 0RF Hold Instructions: Resume on 03/04/23. potassium chloride 10 mEq capsule, extended release 10 meq PO DAILY Qty: 30 0RF Hold Instructions: Resume on 03/04/23. Discharge Orders: Discharge Order (Routine); Ordered 03/02/23 Ordered By: Neyda Whalen Referrals: Oralia Calderon MD [Primary Care Provider] - 4-7 days Discharge Diet: Cardiac Discharge Activity: Increase activity as tolerated Patient Instructions: Opioid Safety Discharge Attestations Time Spent in Discharge Care*: greater than 30 min Status at Discharge: Cognitive status at discharge: cognitively intact , Behavioral status at discharge: cooperative , Quality Metrics Clinical Quality Measures [ No reported AMI, CVA or VTE this stay] Coding Level of Care Code Acute Code for Chg Fwd Diagnoses TIA involving left internal carotid artery G45.1 Cerebrovascular disease I67.9
[2023-03-02 12:00] VITALS: BP 129/68; PULSE 78; RESP 18; TEMP 36.6; O2SAT 93
--- NOTE | 2023-03-02 20:29 | USCV_ITS ---
Ivet Caruso Age: 88 Gender: F : 1935 Exam Date: 03/02/2023 01:52 Ordering Phys: Neyda Whalen MD Technologist: IVELISSE Exam Location: [facility] – [place] Indication: facial droop, RIGHT hemiparesis BP: 151 / 72 HR: 70 Rhythm: Atrial fibrillation Technical Quality: Adequate MEASUREMENTS (Male / Female) Normal Values 2D ECHO LV Diastolic Diameter PLAX 4.9 cm 4.2 - 5.9 / 3.9 - 5.3 cm LV Systolic Diameter PLAX 3.5 cm IVS Diastolic Thickness 1.3 cm 0.6 - 1.0 / 0.6 - 0.9 cm IVS Systolic Thickness 1.8 cm LVPW Diastolic Thickness 1.6 cm 0.6 - 1.0 / 0.6 - 0.9 cm LVPW Systolic Thickness 1.3 cm LVOT Diameter 1.9 cm LV Ejection Fraction 2D Teich 56.1 % LV Ejection Fraction MOD 2C 71.5 % LV Ejection Fraction 2C AL 70.9 % LA Diameter 5.0 cm LA Width 5.1 cm LA Height 6.0 cm RA Width 3.2 cm RA Height 4.4 cm Aorta at Sinotubular Diameter 2.8 cm IVC Diameter 1.3 cm M-MODE Aortic Annulus Diameter 3.1 cm LA Ao Ratio MM 1.5 DOPPLER AV Peak Velocity 181.0 cm/s LVOT Peak Velocity 61.0 cm/s AV Area Cont Eq vti 1.0 cm squared AV Area Cont Eq pk 0.9 cm squared MV Peak Velocity 275.0 cm/s MV Area PHT 2.0 cm squared MV E' Velocity 146.0 cm/s Mitral E to MV E' Ratio 29.9 Mitral E to LV E' Lateral Ratio 24.4 Mitral E to LV E' Septal Ratio 39.0 TR Peak Velocity 290.5 cm/s TR Peak Gradient 33.8 mmHg TV Peak E Velocity 124.0 cm/s Right Atrial Pressure 15.0 mmHg Pulmonary Artery Systolic Pressu 48.8 mmHg PV Peak Velocity 109.0 cm/s RV Acceleration Time 0.1 s RV Ejection Time 0.4 s RV AcT/ET 0.3 FINDINGS Left Ventricle Left ventricle is normal in size. LV systolic function is normal with EF of 50 to 55% %. Septal motion is consistent with prior cardiac surgery. Right Ventricle RV is moderately hypokinetic. Right Atrium Normal in size Left Atrium Dilated Mitral Valve Mitral valve is thickened. Likely has mitral annuloplasty ring is seen. Mild mitral regurgitation.Moderate mitral stenosis with mean gradient across mitral valve of 9mmHg. 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 Mild aortic stenosis. Tricuspid Valve Mild tricuspid regurgitation. RVSP is 45 to 50 mmHg. This is consistent with moderate pulmonary hypertension. Pulmonic Valve Not well-visualized. Mild pulmonic regurgitation. Pericardium Normal Aorta Normal in size IVC Appears to be normal CONCLUSIONS LV systolic function is normal with EF of 50 to 55%. Septal motion is consistent with prior cardiac surgery RV is moderately hypokinetic Left atrial dilation Likely has mitral annuloplasty ring is seen. Mild mitral regurgitation.Moderate mitral stenosis with mean gradient across mitral valve of 9mmHg. 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 Mild aortic stenosis. Mild tricuspid regurgitation. Mild pulmonic regurgitation. Compared to prior echocardiogram from 2020, LV systolic function has improved now. Ciao Win MD (Electronically Signed) Final Date: 02 Mar 2023 17:03 S
== END 2023-03-02 16:58 | disposition home or self-care (01) ==
LOC: ER 19:26 → MEDSURG 03-02 00:26
PROVIDERS: Admitting Provider Internal Medicine; Emergency Provider Family Medicine; PCP Family Medicine; Visit Provider Internal Medicine
DX: G45.1 Carotid artery syndrome (hemispheric) (principal); I67.9 Cerebrovascular disease, unspecified; I48.91 Unspecified atrial fibrillation; I44.7 Left bundle-branch block, unspecified; Z79.01 Long term (current) use of anticoagulants; Z95.0 Presence of cardiac pacemaker; Z95.5 Presence of coronary angioplasty implant and graft; Z95.1 Presence of aortocoronary bypass graft; I10 Essential (primary) hypertension; I25.10 Atherosclerotic heart disease of native coronary artery without angina pectoris; H35.30 Unspecified macular degeneration; R29.703 NIHSS score 3; H53.483 Generalized contraction of visual field, bilateral; Z79.82 Long term (current) use of aspirin; E78.5 Hyperlipidemia, unspecified; I08.3 Combined rheumatic disorders of mitral, aortic and tricuspid valves
CPT/HCPCS: 36415; 36416; 70450; 70496; 70498; 71045; 80053; 80306; 81003; 82607; 82962; 83735; 85025; 85610; 85730; 92523; 92610; 93005; 93306; 96374; 97116; 97161; 97165; 99285; G0378; J3490; Q9967

== ENCOUNTER 2023-04-12 12:10 | Outpatient (CLI) | payer MEDICARE, SELFPAY ==
--- NOTE | 2023-04-12 12:53 | USCV_ITS ---
Ivet Caruso Age: 88 Gender: F : 1935 Exam Date: 04/12/2023 13:13 Ordering Phys: Leona Mckenzie NP Technologist: RED [place] [facility] [place]: TIA WITH RESOLUTION Risk Factors: UNKNOWN Previous Vascular Surgery: NONE Right Brachial BP: / Left Brachial BP: / Right Left Velocity (cm/s) Spectral Plaque Velocity (cm/s) Spectral Plaque Syst/Diast Broadening Syst/Diast Broadening 81.60/ 7.70 Prox CCA 69.60 / 19.40 73.90/ 17.60 Mid CCA 53.50 / 10.50 71.70/ 17.60 Distal CCA 48.00 / 14.80 53.20/ 9.90 Prox ICA 60.30 / 12.90 53.80/ 9.90 Mid ICA 74.40 / 17.20 58.60/ 17.00 Distal ICA 79.30 / 20.30 78.30 ECA 52.90 0.79 ICA/CCA 1.48 Antegrade Vertebral Antegrade 82.20/ 16.10 cm/s 32.00/ 7.40 cm/s Bi Subclavian Bi 123.3 68.30 0 FINDINGS Mild to moderate plaques bilaterally at the bifurcations and proximal internal carotid arteries Normal Doppler flow velocities CONCLUSIONS 1. Mild to moderate plaques bilaterally with the Doppler velocities suggesting less than 50% stenosis 2. No significant stenosis in the external carotid, vertebral and subclavian arteries, based on the above findings Dr Nayely Gardner MD [facility] (Electronically Signed) Final Date: 15 April 2023 15:20 S
== END 2023-04-12 12:11 | disposition home or self-care (01) ==
PROVIDERS: PCP Family Medicine; Visit Provider Nurse Practitioner Family
DX: I65.23 Occlusion and stenosis of bilateral carotid arteries (principal)
CPT/HCPCS: 93880

== ENCOUNTER → 2023-04-14 13:24 | Outpatient (BNVA) | payer MEDICARE, SELFPAY | PROVIDERS: PCP Family Medicine; Visit Provider Podiatrist Foot & Ankle Surgery | DX: I73.9 Peripheral vascular disease, unspecified (principal); L60.8 Other nail disorders; L60.3 Nail dystrophy | CPT/HCPCS: 11721 ==